=== PATIENT | female | born 1945 | race Caucasian/White ===

== ENCOUNTER 2020-04-14 06:37 | Observation (INO) ==
--- NOTE | 2020-03-02 21:57 | PAT Medication Instructions ---
Medication Instructions Date of Service March 02, 2020 Home Medications Medication Instructions Recorded Wheeled Walker #1 ea 02/23/20 3-in-1 Commode #1 ea 03/02/20 atenolol [Tenormin] 25 mg PO QAM atenolol [Tenormin] 100 mg PO QAM atorvastatin [Lipitor] 20 mg PO QPM fluticasone propionate [Flonase Allergy Relief] 2 spray INTRANASAL DAILY PRN furosemide [Lasix] 20 mg PO DAILY PRN lisinopril 20 mg PO QAM loratadine [Claritin] 10 mg PO QPM metformin 500 mg PO QAM warfarin 5 mg PO UD calcitriol 0.25 mcg PO QAM ASK your prescriber and surgeon warfarin 5 mg PO UD DO NOT take the morning of surgery furosemide [Lasix] 20 mg PO DAILY PRN (if needed) lisinopril 20 mg PO QAM metformin 500 mg PO QAM calcitriol 0.25 mcg PO QAM Take morning of surgery With a small sip of water, OTHERWISE NOTHING TO EAT OR DRINK AFTER MIDNIGHT: atenolol [Tenormin] 25 mg PO QAM atenolol [Tenormin] 100 mg PO QAM fluticasone propionate [Flonase Allergy Relief] 2 spray INTRANASAL DAILY PRN (if needed) Take evening before surgery atorvastatin [Lipitor] 20 mg PO QPM fluticasone propionate [Flonase Allergy Relief] 2 spray INTRANASAL DAILY PRN (if needed) furosemide [Lasix] 20 mg PO DAILY PRN (if needed) loratadine [Claritin] 10 mg PO QPM Other Notes If you have any questions please call us at [phone] or [phone] or [phone] or [phone]
--- NOTE | 2020-03-03 12:26 | Anesthesiology Consultation ---
Date of Service March 03, 2020 Assessment & Plan (1) Encounter for pre-operative examination: COVID Status: As of 03/03 assessment, patient denies travel to endemic area, known exposure/sick contacts, or symptoms of COVID19. Patient instructed to follow strict social distancing guidelines, wear a mask in public and avoid travel for 14 days prior to surgery. Preoperative COVID19 testing to be completed prior to surgery. Patient made aware to self-isolate as much as possible between COVID testing and surgery. PT/INR/PTT AM DOS Chart Review Chart Review: Acceptable Risk for Surgery and Patient seen in Pre Admission Testing Teaching & Discussion Instructed NPO after midnight before surgery, except medications with 15 cc of water. Medication instructions provided according to the PAT guidelines. History Surgery Operation Date: 04/14/20 10:40 Proposed Procedures p Right Total Hip Replacement - Casey De MD Height/Weight Height: 5 ft 6 in Weight: 105.6 kg Allergies Allergy/AdvReac Type Severity Reaction Status Date / Time doxycycline Allergy Mild RASH Verified 03/01/20 15:39 acetaminophen [From Tylenol] AdvReac Intermediate YEAST Verified 03/01/20 15:39 INFECTIONS Medications Home Medications Medication Instructions Recorded Confirmed Last Taken atenolol [Tenormin] 25 mg PO QAM 12/11/18 03/01/20 Unknown atenolol [Tenormin] 100 mg PO QAM 12/11/18 03/01/20 Unknown atorvastatin [Lipitor] 20 mg PO QPM 12/11/18 03/01/20 Unknown fluticasone propionate [Flonase 2 spray INTRANASAL DAILY PRN 12/11/18 03/01/20 Unknown Allergy Relief] furosemide [Lasix] 20 mg PO DAILY PRN 12/11/18 03/01/20 Unknown lisinopril 20 mg PO QAM 12/11/18 03/01/20 Unknown loratadine [Claritin] 10 mg PO QPM 12/11/18 03/01/20 Unknown metformin 500 mg PO QAM 12/11/18 03/01/20 Unknown warfarin 5 mg PO UD 12/11/18 03/01/20 Unknown blood sugar diagnostic #10 ea 12/03/19 12/03/19 Unknown Wheeled Walker #1 ea 02/23/20 Unknown calcitriol 0.25 mcg PO QAM 03/01/20 03/01/20 Unknown 3-in-1 Commode #1 ea 03/02/20 Unknown Past Medical History Medical History Arthritis Atrial fibrillation DX'D 7 YRS AGO-ON WARFARIN-F/U DR CEBALLOS Degenerative joint disease of right hip Diabetes mellitus, type 2 GERD (gastroesophageal reflux disease) On anticoagulant therapy Exercise / Class Metabolic Activity III < 4 Walking/Shop/Light housework (Denies CP or SOB with ambulation on flat surface. +SOB with 1 FOS.) Past Surgical History Surgical History History of cardioversion X 2 History of parathyroid surgery Hx of colonoscopy Hx of hysterectomy Past Anesthesia History No Hx of Anesthesia Complications and No Family Hx of Anesthesia Complications History of PONV No Hx of PONV and No Hx of Motion Sickness Social History Smoking Status: Former smoker Do You Dip or Chew Tobacco: No Smoking End Date: QUIT AGE 29 Hx Alcohol Use: Yes (very rare) Alcohol type: beer and wine alcohol intake frequency: holidays/special occasions only Hx Substance Use: No Review of Systems Pt denies any recent chest pain, shortness of breath above baseline, palpitations, cough, fever or URI. Physical Exam Vital Signs BP: 141/79 P: 77bpm SPO2: 95% RA T: 98.4 F R: 16 Constitutional + obese ENMT Mouth: no dental restorations, no chipped teeth and no loose teeth Thyromental Distance: < 3.5 Finger Breadths (3) Mallampati Class: II Neck normal visual inspection; neck extension not limited Respiratory normal respiratory effort Auscultation: lungs clear to auscultation bilaterally Cardiovascular Rate/Rhythm: regular rate; + abnormal rhythm (irreg irreg) Heart Sounds: no murmur Extremities: no edema Testing Laboratory Results 03/03/20 12:45 03/03/20 12:45 PT 17.8 Seconds (9.0-12.0) H 03/03/20 12:45 INR 1.7 (0.9-1.1) H 03/03/20 12:45 APTT 32.3 Seconds (21.0-31.0) H 03/03/20 12:45 Electrocardiogram Date: 10/22/19 Findings: + AFIB @ (91bpm) Nonspecific ST and TWA. No significant change from 10/29/18. Chest X-Ray Date: 03/03/20 Mild cardiomegaly. Echocardiogram Date: 11/05/18 EF: 60-65% There is atrial fibrillation during examination. Normal LV chamber size with mild concentric LVH. Normal LV systolic function without regional wall motion abnormality. Left atrial enlargement suggest diastolic LV dysfunction. RV cavity size is normal. RV systolic function is normal. No significant valvular pathology. Severe left atrial enlargement. Stress Test Date: 11/16/19 Resting EF: 70% Gated SPECT imaging reveals normal myocardial thickening and wall motion. Lexiscan nuclear cardiac stress test negative for ischemia.
--- NOTE | 2020-03-03 13:03 | XRay Report ---
XR chest Pre-admission PA/Lat HISTORY: Preop. COMPARISON: None. FINDINGS: No pneumothorax. No pleural effusions. The axilla is mildly enlarged. No new focal lung con solidations to suggest pneumonia. No evidence for pulmonary edema. IMPRESSION: Mild cardiomegaly. ACT 112: Negative or not required by law. Electronically signed by: Rishi Al M.D. 03/03/2020 1:01 PM
[2020-03-03 16:15] LABS: Basophils # (auto) 0.04 K/uL (0-0.2); Basophils % (auto) 0.6 %; Eosinophils # (auto) 0.17 K/uL (0-0.5); Eosinophils % (auto) 2.4 %; Hematocrit (blood only) 39.8 % (37-47); Hemoglobin 12.9 g/dL (12.0-16.0); Immature Granulocytes # (auto) 0.03 K/uL (0.00-0.02); Immature Granulocytes % (auto) 0.4 %; Lymphocytes # (auto) 2.03 K/uL (1.2-3.4); Lymphocytes % (auto) 28.8 %; Mean Corpuscular Hemoglobin 30.2 pg (25-34); Mean Corpuscular Hgb Conc 32.4 g/dL (32-36); Mean Corpuscular Volume 93.2 fL (80-100); Mean Platelet Volume 12.5 fL (7.4-10.4); Monocytes # (auto) 0.61 K/uL (0.11-0.59); Monocytes % (auto) 8.7 %; Neutrophils # (auto) 4.17 K/uL (1.4-6.5); Neutrophils % (auto) 59.1 %; Platelet Count 198 K/uL (130-400); RDW Coefficient of Variation 13.4 % (11.5-14.5); RDW Standard Deviation 45.2 fL (36.4-46.3); Red Blood Count 4.27 M/uL (4.2-5.4); White Blood Count 7.05 K/uL (4.8-10.8)
[2020-03-03 16:21] LABS: BUN Creatinine Ratio 16.4 (10-20); Calcium 9.7 mg/dl (8.5-10.1); Creatinine Clr Calc Pharmacy 64.6 ml/min; Est GFR (Non-African American) 61.3; Potassium 4.6 mmol/L (3.5-5.1)
[2020-03-03 16:30] LABS: INR 1.7 (0.9-1.1); Partial Thromboplastin Ratio 1.2; Partial Thromboplastin Time 32.3 Seconds (21.0-31.0); Prothrombin Time 17.8 Seconds (9.0-12.0)
--- NOTE | 2020-04-09 14:56 | History and Physical Report ---
DATE OF ADMISSION: 04/14/2020 CHIEF COMPLAINT: Persistent progressive right hip pain and discomfort. HISTORY OF PRESENT ILLNESS: The patient is a 75-year-old female who I have been following for some knee problems in the past who presents with a 1+ year history of increasing right hip pain and discomfort. It has gradually just gotten worse over the past year to the point where she has had to use a cane to get along. Her symptoms in the knees are pretty manageable, but hip is disabling. She did see Dr. Allen in pain clinic who did not think this was coming from her back. She describes mostly lateral hip pain and buttock pain and groin pain. The more she walks, the more it hurts. She limps more as the day goes on. She has nighttime pain. She would like to proceed with surgical treatment. PAST MEDICAL HISTORY: 1. Atrial fibrillation, on Coumadin; followed by Dr. Robertson. 2. Diabetes x8 years. 3. Gastroesophageal reflux disease. 4. Obesity with BMI of 38. PAST SURGICAL HISTORY: Include hysterectomy. ALLERGIES: DOXYCYCLINE. CURRENT MEDICINES: 1. Metformin 500 mg a day. 2. Atenolol. 3. Lisinopril. 4. Citrucel. 5. Coumadin 5 mg. 6. Atorvastatin 20 mg a day. SOCIAL HISTORY: A 75-year-old white female. She lives in [place]. Fairly active normally. Does not smoke. FAMILY HISTORY: Noncontributory. REVIEW OF SYSTEMS: Significant for history of atrial fibrillation in the past. Denies any current chest pain or shortness of breath. No history of DVT or PE. No known bleeding problems. She is on Coumadin. PHYSICAL EXAMINATION: GENERAL: Shows a pleasant elderly female. Looks to be in reasonably good health. HEENT: Benign. NECK: Supple, no lymphadenopathy. LUNGS: Clear to auscultation. HEART: Has a regular rate and rhythm. ABDOMEN: Soft, nontender, nondistended. EXTREMITIES: Grossly neurovascularly intact except as follows. Examination of the right hip reveals patient who walks with a slightly antalgic gait. Leg lengths clinically appear pretty equal. She does have significant pain and stiffness and recreation of her pain with hip internal rotation. She can internally rotate to about neutral. Negative straight leg raise. No knee effusion. X-RAYS: X-rays of the right hip were reviewed and compared to previous films, it shows advanced right hip DJD with complete loss of her superior joint space. This has progressed since her most recent films. She does have some slight cystic changes and sclerotic changes in the joint surface on both sides. ASSESSMENT: A 75-year-old white female with one year history of increasing right hip pain and discomfort consistent with progressive hip arthritis. She has failed conservative treatment and would like to have her right hip replaced. PLAN: We will take her to the operating room and do right total hip replacement. The risks and benefits of this procedure were explained to the patient including but not limited to DVT, PE, , infection, neurological injury, vascular injury, bleeding problem, pain, limited range of motion, stiffness, failure to relieve symptoms, incomplete relief of symptoms, need for further surgery in the future, fracture, leg length inequality, nerve palsy, dislocation, need for blood transfusion. The patient understands and desires to proceed. Informed consent was obtained. As far as discharge plans, she is hoping to be discharged to home. She is going to do the [facility] home health. We did talk about stopping her Coumadin 5 days preoperatively. We will check a stat PT and INR the morning of surgery.
[~2020-04-14 06:37] MED LIST: ACETAMINOPHEN 500 MG TAB PO SCH; BUPIVACAINE 0.5 % 5 MG/1 ML PF 10ML VIAL ONE; FAMOTIDINE 20 MG TAB PO SCH; GABAPENTIN 300 MG CAP PO SCH; LR 500ML BOLUS, THEN 15ML/HR IV SCH; LR 60ML/HR IV SCH; METOCLOPRAMIDE HCL 10 MG TABLET PO SCH; TRANEXAMIC ACID 1,000 MG **IV Pre-op IV SCH
--- NOTE | 2020-04-14 06:44 | History & Physical Bridge Note ---
Date of Service April 14, 2020 History & Physical Bridge Note I have examined the patient, reviewed the History & Physical and in the interval since the performance of the History & Physical I have noted the following changes of clinical significance: no changes noted
[2020-04-14] MEDS ORDERED: CEFAZOLIN 2000MG 2,000 MG/15 ML SYR IV ONE (07:36)
[2020-04-14] MEDS ORDERED: PROPOFOL IV EMULSION 10 MG/ML 20 ML VIAL IV ONE ×2 (07:53→09:49)
[2020-04-14] MEDS ORDERED: LIDOCAINE HCL 2% 2 ML VIAL/AMP(20MG/ML) INFIL ONE (07:53)
[2020-04-14] MEDS ORDERED: fentaNYL citrate 100 MCG/2 ML VIAL ONE (07:53)
[2020-04-14] MEDS ORDERED: MIDAZOLAM HCL 1 MG/ML 2ML VIAL ONE (07:53)
[2020-04-14 07:57] LABS: INR 1.2 (0.9-1.1); Partial Thromboplastin Ratio 0.9; Partial Thromboplastin Time 26.3 Seconds (21.0-31.0); Prothrombin Time 12.3 Seconds (9.0-12.0)
[2020-04-14] MEDS ORDERED: MoRPHine SULFATE PF 1 MG/ML 10 ML AMP/VIAL ONE (08:07)
[2020-04-14] MEDS ORDERED: BUPIVACAINE 0.5 % 5 MG/1 ML MPF 30ML VIAL ONE (08:39)
[2020-04-14] MEDS ORDERED: BACITRACIN INJ 50,000 UNIT VIAL ONE (08:39)
[2020-04-14] MEDS ORDERED: EPINEPHrine INJ 1 MG/ML AMP ONE (08:40)
[2020-04-14] MEDS ORDERED: METOCLOPRAMIDE HCL 10 MG in SODIUM CHLORIDE 0.9% 50 ML IV PRN (09:40)
[2020-04-14] MEDS ORDERED: LACTATED RINGER'S 500 ML IV PRN (09:40)
[2020-04-14] MEDS ORDERED: PROMETHAZINE HCL 12.5 MG in SODIUM CHLORIDE 0.9% 50 ML IV PRN (09:40)
[2020-04-14] MEDS ORDERED: HYDROmorphone INJ 0.5 MG/0.5 ML SYR IV PRN (09:40)
[2020-04-14] MEDS ORDERED: DiphenhydrAMINE HCL 50 MG/ML VIAL IV PRN (09:40)
[2020-04-14] MEDS ORDERED: MoRPHine SULFATE PF 1 MG/ML 10 ML AMP/VIAL INT SPINAL ONE (09:40)
[2020-04-14] MEDS ORDERED: ePHEDrine sulfate 50 MG/ML AMP IV PRN (09:40)
[2020-04-14] MEDS ORDERED: MoRPHine SULFATE 2 MG/ML CARP IV PRN (09:40)
[2020-04-14] MEDS ORDERED: NALOXONE HCL 0.4 MG/1 ML VIAL/CARP IV PRN (09:40)
[2020-04-14] MEDS ORDERED: NALOXONE HCL 0.08 MG in SYRINGE 1.8 ML IV PRN (09:40)
[2020-04-14] MEDS ORDERED: ONDANSETRON INJ 2 MG/ML 2 ML VIAL IV PRN (09:40)
[2020-04-14] MEDS ORDERED: MEPERIDINE HCL 25 MG/ML CARP/VIAL IV PRN (09:40)
[2020-04-14] MEDS ORDERED: NALOXONE HCL 1 MG in SODIUM CHLORIDE 0.9% 1000ML 1,000 ML IV PRN (09:40)
[2020-04-14] MEDS ORDERED: SODIUM CHLORIDE 0.9% 1000ML 1,000 ML IV SCH (09:45)
[2020-04-14] MEDS ORDERED: DC INTRASPINAL MORPHINE SCH (09:45)
[2020-04-14] MEDS ORDERED: PHENYLEPHRINE HCL 10 MG/ML VIAL ONE (09:45)
[2020-04-14] MEDS ORDERED: PHENYLEPHRINE 100MCG/ML 5ML SYR ONE (09:45)
[2020-04-14] MEDS ORDERED: NO NARCOTICS OR SEDATIVES SCH (09:45)
[2020-04-14] MEDS ORDERED: ePHEDrine sulfate 50 MG/ML SYR ONE (09:45)
--- NOTE | 2020-04-14 10:44 | Post Operative Brief Note ---
PG Immediate Post Op with CF Date of Surgery April 14, 2020 Pre & Post Diagnosis Operation Date: 04/14/20 08:50 Pre-Op Diagnosis: Right Hip Degenerative Joint Disease Post-Op Diagnosis: Right Hip Degenerative Joint Disease I identified the patient and participated in the time-out.: Yes Procedure Operation Date: 04/14/20 08:50 Actual Procedures p Right Total Hip Replacement, uncemented(Right) - Casey De MD Surgeon Casey De MD Instructor Decorating Minor, PAC Estimated Blood Loss 200 Findings Consistent with Post-Op Diagnosis Fluids 1500 cc Specimens Specimen Description: A: Right femoral head Drains Shelton Catheter (Inserted by Jb Clark RN without difficulty. ) Anesthesia Type Spinal MAC Complications none Disposition Accompanied Patient To Recovery: Yes Disposition: Recovery Room
--- NOTE | 2020-04-14 11:29 | XRay Report ---
XR hip 1V RT w pelvis CLINICAL HISTORY: IN PACU - A/P PELVIS and LATERAL HIP COMPARISON: None. DISCUSSION: Anatomic alignment post total right hip arthroplasty. Could contact between prosthetic an d underlying bone. Expected soft tissue postoperative change IMPRESSION: Anatomic alignment post total right hip arthroplasty. ACT 112: Negative or not required by law. The above report was generated using voice recognition software. It may contain grammatical, syntax or spelling errors. Electronically signed by: Sidney Anderson M.D. 04/14/2020 11:28 AM
--- NOTE | 2020-04-14 11:30 | Anesthesiology Progress Note ---
Date of Service April 14, 2020 Anesthesia Post Procedure Vital Signs Vital Signs: Temp Pulse Pulse Resp BP BP Pulse Ox 04/14/20 11:25 77 14 132/90 100 04/14/20 11:15 36.6 C 74 14 137/91 100 04/14/20 11:05 81 14 131/87 100 04/14/20 10:55 85 16 142/86 H 97 04/14/20 10:47 37.0 C 83 16 118/86 97 04/14/20 07:56 37.1 C 93 H 18 170/94 H 95 Pain Intensity Right Hip: Pain Intensity: 5 Transfer of Care Handoff Completed per policy Notes Mental Status: alert / awake / arousable and participated in evaluation Patient Amnestic to Procedure: Yes Nausea / Vomiting: adequately controlled Pain: adequately controlled Airway Patency, RR, SpO2: stable & adequate BP & HR: stable & adequate Hydration State: stable & adequate Neuraxial Anesthesia: was administered and sensory block is resolving Anesthetic Complications: no major complications apparent
[2020-04-14] MEDS ORDERED: MAGNESIUM HYDROXIDE SUSP 30 ML UDC PO PRN (12:05)
[2020-04-14] MEDS ORDERED: GLUCOSE 40% GEL 15 GM TUBE PO PRN (12:05)
[2020-04-14] MEDS ORDERED: ALUMINUM/MAGNESIUM SUSP 30 ML UDC PO PRN (12:05)
[2020-04-14] MEDS ORDERED: FUROSEMIDE 20 MG TAB PO PRN (12:05)
[2020-04-14] MEDS ORDERED: GLUCOSE 10 TABS/TUBE PO PRN (12:05)
[2020-04-14] MEDS ORDERED: GLUCAGON FOR INJ 1 MG VIAL SQ PRN (12:05)
[2020-04-14] MEDS ORDERED: bisacodyL 10 MG SUPP PR PRN (12:05)
[2020-04-14] MEDS ORDERED: FLUTICASONE PROPIONATE NA SPR 16 GM BTL NAE PRN (12:05)
[2020-04-14] MEDS ORDERED: WARFARIN SOD 10 MG TAB PO ONE (12:05)
[2020-04-14] MEDS ORDERED: DEXTROSE 50% 50 ML SYRINGE IV PRN (12:05)
[2020-04-14] MEDS ORDERED: CARBOHYDRATES FOR HYPOGLYCEMIA PO PRN (12:05)
[2020-04-14] MEDS ORDERED: PHARMACY GLYCEMIC MGMT CONSULT PRN (12:34)
--- NOTE | 2020-04-14 12:38 | Pharmacy Report ---
Glycemic Ortho Sign Off Note - Date of Service April 14, 2020 - Scope Glycemic Pharmacist consulted for glycemic control and to write orders per [facility] inpatient glycemic control protocol. - Objective Accuchecks BSG (last 24hrs):: 04/14/20 04/14/20 04/14/20 07:34 10:47 12:11 POC Glucose 136 H 116 H 111 H - Assessment * Pt is maintained on oral antidiabeticagent[s]as anoutpatient with excellent control per recent A1c * Oral agents are not recommended for inpatient use d/t drug interactions, changing PO intake, and difficulty titrating for acute hyper/hypoglycemia. * Recommended regimen for inpatient use is SQ insulin * Low stress weight based insulin dosing appropriate since patient has minimal risk factors for insulin resistance (i.e. no steroids). * Appropriate to DC insulin and resume outpatient antidiabetic regimen at discharge * Goal is to maintain BSGs <200 mg/dl (ideally <150 mg/dl) to prevent post op complications - Plan For Inpatient Glycemic Control * Basal insulin * Not needed based on A1c, pre-op BSGs, and minimal risk factors for insulin resistance * Bolus insulin * Utilize low stress weight based NovoLog parameters per scale ACHS * Pharmacy has entered glycemic orders and is signing off of the glycemic consult. We will no longer be making adjustments to inpatient regimen. Please feel free to re-consult if needed. Thank you.
[2020-04-14] MEDS: SODIUM CHLORIDE 0.9% 1000ML 1,000 ML IV SCH ×2 (13:44→23:30)
[2020-04-14] MEDS: KETOROLAC TROMETHAMINE 15 MG/ML VIAL IV SCH ×3 (13:46→23:31)
[2020-04-14] MEDS: ACETAMINOPHEN 500 MG TAB PO SCH ×2 (14:46→21:50)
[2020-04-14] MEDS: ASCORBIC ACID 500 MG TAB PO SCH (16:32)
[2020-04-14] MEDS: FERROUS GLUCONATE 324 MG TAB PO SCH (16:32)
[2020-04-14] MEDS: CEFAZOLIN 2000MG 2,000 MG/15 ML SYR IV SCH (17:16)
[2020-04-14] MEDS: INSULIN ASPART 100 UNITS/ML 3 ML PEN SC SCH ×2 (17:57→21:38)
--- NOTE | 2020-04-14 19:09 | Operative Report ---
Post Operative Report Pre & Post Diagnosis Operation Date: 04/14/20 08:50 Pre-Op Diagnosis: Right Hip Degenerative Joint Disease Post-Op Diagnosis: Right Hip Degenerative Joint Disease I identified the patient and participated in the time-out.: Yes Procedure Operation Date: 04/14/20 08:50 Actual Procedures p Right Total Hip Replacement, uncemented(Right) - Casey De MD Surgeon Casey De MD Electrical Construction Project Manager Minor, PAC Estimated Blood Loss 200 Findings Consistent with Post-Op Diagnosis Operative findings revealed advanced right hip DJD. As she had grade 4 [id number] disease of the femoral head and acetabulum. Small anterior acetabular osteophyte. Moderate sized joint effusion. Moderate synovitis. Fluids 1500 cc. Specimens Right femoral head sent for pathology. Drains None. Anesthesia Type Spinal MAC Complications none Disposition Accompanied Patient To Recovery: Yes Disposition: Recovery Room Indications Patient is a 75-year-old fairly active female who is had about a 1 year history of gradually increasing hip pain and discomfort that is gotten significantly worse. She got to the point where she had use a cane to get around. She has had difficulty maintaining any degree of activity or independent lifestyle. X- rays show progressive hip arthritis. She elected proceed with surgical treatment. Description of Procedure Operative implants consist of: 1. Biomet G7 size 52 mm acetabular shell. 2. 6.5 cancellus acetabular screws 1 of 35 mm length and 125 mm length. 3. [place] hole eliminator. 4. 52 mm outer diameter, 36 mm inner diameter highly cross-linked polyethylene liner. 5. [place] Corail size 11 KLA femoral stem. 6. +1.5/36 mm ceramic articular ball. Patient was taken to the operating room identified and placed on the operating table supine position protectors were properly padded. IV antibiotics were provided by the anesthesia team. A spinal anesthetic been implemented holding area. Shelton catheter was placed in sterile fashion. The patient then placed in the left lateral cubitus position. An axillary roll was placed. A Stulberg hip positioner was used for positioning. The right hip and leg were then prepped and draped in usual sterile fashion. A posterior LAT approach of the right hip was then performed through a curvilinear incision centered over the greater trochanter. Sharp dissection got through subcutaneous this down over the IT band gluteal fascia. The IT band gluteal fascia were incised longitudinally in line with skin incision. The underlying greater truck bursa was excised. The piriformis and external rotators were tagged and taken off the posterior aspect hip joint capsule. Great care was taken throughout the procedure protect the sciatic nerve at all times. Posterior capsulotomy was then performed leaving a large flap for later repair. Hip was internally rotated and dislocated. Femoral neck osteotomy cut was made with Final Cut 12 mm above the lesser trochanter. Femoral head was removed and sent for pathology. The femur was retracted anteriorly. Attention drawn the acetabulum. The acetabular labrum was excised per the pulmonary fat was excised. Sequential reaming the acetabular was then performed again with size 43 and progressing up to 51. I did reamed with a 52. A 52 mm Biomet G7 acetabular shell cup was then placed in about 40 degrees lateral opening and 20 degrees of anteversion. It was fixed with two 6.5 cancellus acetabular screws. Trial liner was placed. Some small anterior osteophytes were removed. Attention drawn the femur. The proximal femur was entered with a cookie-cutter followed by canal finder. I broached beginning with size 8 and progressing up to 11. Got excellent fit 11. Calcar reamer was used smooth and off the calcar. Then trialed the hip. The +5 articular ball the hip was fully stable but just seemed a bit tight. I used a +1.5 the head. It seemed to re-create leg lengths equal and soft tissue tension appropriate. The hip was fully stable. We elect to place these implants. All trial implants were removed. An apex hole eliminator was placed. Highly cross-linked polyethylene liner was placed. A size 11 KLA femoral stem was impacted in position. A +1.5/36 mm ceramic articular ball was placed. It was located once again found to be stable. Attention drawn toward closing. The wounds irrigated copious pulsatile lavage solution. I did inject locally with 60 cc of half percent Marcaine with epinephrine. The posterior capsule and external rotators were then repaired through drill holes in the posterior trochanter with #2 Tycron suture. The IT band gluteal fascia then closed with #1 PDS suture in running fashion the subcutaneous tissue then closed with 2 layers the deep layer #1 Vicryl suture and subcutaneous tissue with 2 Dexon suture in a buried interrupted fashion for skin was closed skin [place]. Leg was then cleaned dried a sterile dressed composed Xeroform, 4 x 4's, sterile ABD pad and foam tape was applied. The patient then transferred to the recovery in stable condition. The patient tolerated procedure well no complications. Obie Sanchez, my physician assistant designer, was present for the entire procedure. His presence was essential to proper positioning of the patient, prepping and draping, surgical exposure, performing the technical details of the operation, retraction, placement of the implants, closing of the wound, and placing a sterile bandage. I attest to the content of the Intraoperative Record and any orders documented therein. Any exceptions are noted below.
[2020-04-14] MEDS: LORATADINE 10 MG TAB PO SCH (21:49)
[2020-04-14] MEDS: ATORVASTATIN 20 MG TAB PO SCH (21:50)
[2020-04-14] MEDS: DOCUSATE SODIUM 100 MG CAP PO SCH (21:50)
[2020-04-14] MEDS: SENNA 8.6 MG TAB PO SCH (21:50)
[2020-04-15] MEDS: CEFAZOLIN 2000MG 2,000 MG/15 ML SYR IV SCH (00:53)
[2020-04-15] MEDS ORDERED: NALOXONE HCL 0.4 MG/1 ML VIAL/CARP IV PRN (03:40)
[2020-04-15] MEDS ORDERED: METOCLOPRAMIDE HCL INJ 5 MG/ML 2 ML VIAL IV PRN (03:40)
[2020-04-15] MEDS ORDERED: TRAMADOL HCL 50 MG TABLET PO PRN (03:40)
[2020-04-15] MEDS ORDERED: HYDROmorphone INJ 0.5 MG/0.5 ML SYR IV PRN (03:40)
[2020-04-15] MEDS ORDERED: ONDANSETRON INJ 2 MG/ML 2 ML VIAL IV PRN (03:40)
[2020-04-15 06:12] LABS: Basophils # (auto) 0.03 K/uL (0-0.2); Basophils % (auto) 0.2 %; Eosinophils # (auto) 0.06 K/uL (0-0.5); Eosinophils % (auto) 0.5 %; Hematocrit (blood only) 36.9 % (37-47); Hemoglobin 11.9 g/dL (12.0-16.0); Immature Granulocytes # (auto) 0.03 K/uL (0.00-0.02); Immature Granulocytes % (auto) 0.2 %; Lymphocytes # (auto) 1.95 K/uL (1.2-3.4); Lymphocytes % (auto) 15.7 %; Mean Corpuscular Hemoglobin 30.9 pg (25-34); Mean Corpuscular Hgb Conc 32.2 g/dL (32-36); Mean Corpuscular Volume 95.8 fL (80-100); Mean Platelet Volume 11.6 fL (7.4-10.4); Monocytes # (auto) 1.24 K/uL (0.11-0.59); Neutrophils # (auto) 9.15 K/uL (1.4-6.5); Neutrophils % (auto) 73.4 %; Platelet Count 183 K/uL (130-400); RDW Coefficient of Variation 13.7 % (11.5-14.5); RDW Standard Deviation 48.4 fL (36.4-46.3); Red Blood Count 3.85 M/uL (4.2-5.4); White Blood Count 12.46 K/uL (4.8-10.8)
[2020-04-15] MEDS: ACETAMINOPHEN 500 MG TAB PO SCH ×3 (06:16→21:29)
[2020-04-15] MEDS: KETOROLAC TROMETHAMINE 15 MG/ML VIAL IV SCH ×4 (06:16→23:05)
[2020-04-15 06:20] LABS: INR 1.2 (0.9-1.1); Prothrombin Time 12.8 Seconds (9.0-12.0)
[2020-04-15 06:48] LABS: BUN Creatinine Ratio 21.1 (10-20); Calcium 8.5 mg/dl (8.5-10.1); Creatinine Clr Calc Pharmacy 67.9 ml/min; Est GFR (Non-African American) 64.7; Potassium 4.1 mmol/L (3.5-5.1)
[2020-04-15] MEDS ORDERED: WARFARIN SOD 2 MG TAB PO ONE (08:30)
[2020-04-15] MEDS ORDERED: WARFARIN SOD 5 MG TAB PO ONE (08:30)
--- NOTE | 2020-04-15 08:44 | Progress Notes ---
DATE: 04/15/2020 SUBJECTIVE: A 75-year-old white female postop day 1 from a right hip replacement. She is doing well. Really not having much pain. Had a good night. No chest pain or shortness of breath. Not feeling dizzy or lightheaded. OBJECTIVE: VITAL SIGNS: Temperature 36.6. Vital signs stable. GENERAL: Shows a pleasant elderly female. She is lying in bed and looks comfortable. LUNGS: Clear to auscultation. HEART: Has a regular rate and rhythm. ABDOMEN: Soft, nontender, nondistended. EXTREMITIES: Grossly neurovascularly intact except as follows: Examination of the right hip and leg reveals the leg to be well aligned. Leg lengths are equal. Dressing is clean, dry and intact. Calf is soft and supple. She is neurologically intact. LABORATORY DATA: Hemoglobin 11.9. Hematocrit 36.9. White cell count 12.46. Electrolytes are stable. ASSESSMENT: A 75-year-old white female with a history of atrial fibrillation in the past. Postoperative day 1 from a right hip replacement, doing pretty well. Pain is controlled. Hip is located. She is neurologically intact. PLAN: 1. DVT prophylaxis including thigh-high TEDs, SCDs, and we will put her back on her Coumadin and she was dosed last evening. 2. PT/OT. Weight bear as tolerated. Right total hip protocol. 3. Pain control, doing well with current pain regimen. 4. Disposition: She is hoping to be discharged home with some home health and family's assistance once medically stable and adequately rehabed.
[2020-04-15] MEDS: DOCUSATE SODIUM 100 MG CAP PO SCH ×2 (09:16→21:30)
[2020-04-15] MEDS: ASCORBIC ACID 500 MG TAB PO SCH ×2 (09:18→16:34)
[2020-04-15] MEDS: MULTIVITAMIN TAB PO SCH (09:18)
[2020-04-15] MEDS: FERROUS GLUCONATE 324 MG TAB PO SCH ×2 (09:19→16:34)
[2020-04-15] MEDS: CALCITRIOL 0.25 MCG CAPSULE PO SCH (09:19)
[2020-04-15] MEDS: lisinopriL 20 MG TAB PO SCH (09:25)
[2020-04-15] MEDS: ATENOLOL 50 MG TABLET PO SCH (09:25)
[2020-04-15] MEDS: ATENOLOL 25 MG TABLET PO SCH (09:25)
[2020-04-15] MEDS: INSULIN ASPART 100 UNITS/ML 3 ML PEN SC SCH ×4 (09:45→21:54)
[2020-04-15] MEDS: METFORMIN HCL 500 MG TAB PO SCH (12:19)
[2020-04-15] MEDS: LORATADINE 10 MG TAB PO SCH (21:29)
[2020-04-15] MEDS: SENNA 8.6 MG TAB PO SCH (21:31)
[2020-04-15] MEDS: ATORVASTATIN 20 MG TAB PO SCH (21:31)
[2020-04-16] MEDS: KETOROLAC TROMETHAMINE 15 MG/ML VIAL IV SCH (04:38)
[2020-04-16] MEDS: ACETAMINOPHEN 500 MG TAB PO SCH ×2 (04:38→13:22)
[2020-04-16 06:25] LABS: INR 1.9 (0.9-1.1); Prothrombin Time 19.3 Seconds (9.0-12.0)
[2020-04-16] MEDS ORDERED: WARFARIN SOD 4 MG TAB PO ONE (07:55)
[2020-04-16] MEDS: METFORMIN HCL 500 MG TAB PO SCH (08:16)
[2020-04-16] MEDS: FERROUS GLUCONATE 324 MG TAB PO SCH (08:16)
[2020-04-16] MEDS: CALCITRIOL 0.25 MCG CAPSULE PO SCH (08:17)
[2020-04-16] MEDS: DOCUSATE SODIUM 100 MG CAP PO SCH (08:17)
[2020-04-16] MEDS: ASCORBIC ACID 500 MG TAB PO SCH (08:17)
[2020-04-16] MEDS: MULTIVITAMIN TAB PO SCH (08:17)
[2020-04-16] MEDS: ATENOLOL 25 MG TABLET PO SCH (08:18)
[2020-04-16] MEDS: ATENOLOL 50 MG TABLET PO SCH (08:18)
[2020-04-16] MEDS: lisinopriL 20 MG TAB PO SCH (08:19)
--- NOTE | 2020-04-16 09:11 | Progress Notes ---
DATE: 04/16/2020 SUBJECTIVE: A 75-year-old white female now postop day 2 from right hip replacement. She is doing pretty well. Not having much pain. No chest pain or shortness of breath. Not feeling dizzy or lightheaded. OBJECTIVE: VITAL SIGNS: Temperature 36.7. Vital signs stable. GENERAL: Physical examination shows a pleasant, elderly female. She is sitting up in her bedside chair, looks completely comfortable. EXTREMITIES: Examination of the right hip reveals the dressing to be clean, dry and intact. Thigh is soft and supple. Leg lengths are equal. Hip is located. She is neurologically intact. LABORATORY DATA: INR is 1.9. ASSESSMENT: A 75-year-old white female postop day 2 from a right hip replacement, doing well. Pain is controlled. Hip is located. Her Coumadin is almost therapeutic. PLAN: 1. DVT prophylaxis include thigh-high TEDs, SCDs and back on her Coumadin and almost therapeutic. 2. PT/OT. She will weightbear as tolerated. Right total hip protocol. 3. Pain control, doing well with current pain regimen. 4. Disposition: She is hoping to be discharged to home with some home health. Her sister is going to come and stay with her for the first week or so. She feels comfortable going home. We will see how therapy goes today.
[2020-04-16] MEDS: INSULIN ASPART 100 UNITS/ML 3 ML PEN SC SCH ×2 (09:30→12:18)
--- NOTE | 2020-04-24 15:22 | Discharge Summary ---
Date of Service April 24, 2020 Admission HPI Per Admitting Provider Documented in the H & P Admission Exam (Per Admitting) Constitutional Documented in the H & P Discharge Data Consultations 04/15/20 08:00 Consult Case Management - Discharge Planning Routine Procedures Performed Operation Date: 04/14/20 08:50 Actual Procedures p Right Total Hip Replacement, uncemented(Right) - Casey De MD Hospital Course (1) Status post total hip replacement, right: This patient is a 75 year old female admitted on 04/14/20 and underwent total hip replacement. She tolerated the procedure well and there were no complications. Transferred to the PACU post op and later to the orthopedic floor for further care. She was given ancef for antibiotic prophylaxis. She was also given TEETEE stockings, SCDs, and coumadin for DVT prophylaxis. Hemoglobin, hematocrit, and vital signs were monitored during her hospital stay and remained stable. Did not require any blood transfusions. There were no complications during her hospital stay. By post op day #2 the patient was tolerating a diabetic diet, pain was reasonably controlled with oral pain medicine, and she was participating in physical therapy. On post op day #2 the patient was discharged home and set up with home health care. Shevwas given printed discharge instructions including prescriptions for extra strength tylenol and tramadol. Continue physical therapy, weight bearing as tolerated. Continue TEETEE stockings. Follow up approximately 2 weeks post op or sooner if there are problems or concerns. Coding Level of Care Code None Diagnoses Status post total hip replacement, right Z96.641
== END 2020-04-16 13:40 | disposition home health service (06) ==
LOC: 3E 06:37 → PAT 06:37 → ASU 06:37

== ENCOUNTER 2022-02-26 12:53 | Inpatient (IN) ==
[2022-02-26] MEDS ORDERED: ONDANSETRON INJ 2 MG/ML 2 ML VIAL IV STA (13:34)
[2022-02-26] MEDS ORDERED: MoRPHine SULFATE 4 MG/ML 1 ML CARP\\VIAL IV STA (13:34)
--- NOTE | 2022-02-26 13:40 | Emergency Department Note ---
History of Present Illness General Chief complaint: Vomiting Stated complaint: FEELS ILL Time Seen by Provider: 02/26/22 13:13 Source: patient History of Present Illness Provider complaint: Right-sided abdominal pain Onset (ago): hour(s) Location: abdomen and right Radiation: back Pain Consistency: + constant Maximum Pain Intensity: 8 Quality: + other (Gas-like pain) Relieved By: + none Exacerbated By: + none Associated symptoms: + nausea/vomiting; no chest pain, no cough, no fever/chills or no shortness of breath This is a 77-year-old female who presents with bilateral flank pain which is worse on the right side. She states that it started approximately 10:00 today. She noticed pain mostly on the right abdomen rating to her back and flank. She describes it as a gas-like pain. It was associated with vomiting. No modifying factors. It went away after about an hour. She does feel a slight pain currently. She denies any fever, cough or cold symptoms, chest pain, shortness of breath or urinary symptoms or hematuria. She does state that she had diarrhea over the weekend but that has gone away. She denies any hematochezia or melanotic stools. She does still have her gallbladder. Home Medications Medication Instructions Recorded Confirmed Type atorvastatin 20 mg tablet (Lipitor) 20 mg PO QPM 12/11/18 02/26/22 History fluticasone propionate 50 2 spray INTRANASAL DAILY PRN 12/11/18 02/26/22 History mcg/actuation nasal spray,suspension (Flonase Allergy Relief) loratadine 10 mg tablet (Claritin) 10 mg PO QPM 12/11/18 02/26/22 History metformin 500 mg tablet,extended 500 mg PO QAM 12/11/18 02/26/22 History release 24 hr warfarin 5 mg tablet See Rx Instructions .ROUTE .COMPLEX 12/11/18 02/26/22 History blood sugar diagnostic (OneTouch #10 ea 12/03/19 05/23/21 History Ultra Blue Test Strip) Wheeled Walker #1 ea 02/23/20 05/04/21 Rx 3-in-1 Commode #1 ea 03/02/20 05/04/21 Rx tramadol 50 mg tablet 50 - 100 mg PO Q6H PRN #30 tab 04/16/20 02/26/22 Rx calcitriol 0.25 mcg capsule 0.25 mcg PO QAM #90 cap 12/03/21 02/26/22 Rx atenolol 50 mg tablet 125 mg PO QAM 02/26/22 02/26/22 History losartan 50 mg tablet 50 mg PO QAM 02/26/22 02/26/22 History Allergies Allergy/AdvReac Type Severity Reaction Status Date / Time doxycycline Allergy Intermediate RASH Verified 02/26/22 15:49 acetaminophen [From Tylenol] AdvReac Intermediate YEAST Verified 02/26/22 15:49 INFECTIONS Past Med/Surg History Medical History Arthritis Atrial fibrillation DX'D 7 YRS AGO-ON [place]-F/U DR CEBALLOS Diabetes mellitus, type 2 GERD (gastroesophageal reflux disease) Hyperparathyroidism Hypertension Left knee DJD On anticoagulant therapy Osteoporosis Vitamin D deficiency Surgical History History of cardioversion X 2 History of parathyroid surgery Hx of colonoscopy Hx of hysterectomy Status post total hip replacement, right Family History Sister Breast cancer Unknown Cardiac disorder Brother Family history of diabetes mellitus Social History Smoking Status: Former smoker Second Hand Exposure: Yes (SPOUSE SMOKED); Hx Alcohol Use: No Hx Substance Use: No Preferred Language: Swedish Communication Ability: Effective Surveying Teacher Required: No Beliefs That Will Affect Care: None marital status: Current Living Situation: Alone Feels Safe at Home: Yes Assistive Devices: Glasses and Walker Review of Systems See HPI for pertinent positives & negatives. and A total of 10 systems reviewed and were otherwise negative Physical Exam Vital Signs Vital Signs - 24 hr 02/26/22 13:01 02/26/22 14:01 02/26/22 14:38 Temperature 37.1 C Temperature Source Temporal Artery Scan Pulse Rate 89 Pulse Rate [Apical] 91 H Respiratory Rate 16 18 Respiratory Effort / Characteristics Non-Labored Respiratory Depth Normal Pulse Oximetry 97 96 99 Oxygen Delivery Method Room Air Room Air Sepsis Recent Fever Within 48 Hours No Sepsis New/Unexplained Change in Mental Status N/A Sepsis Action Taken by Nursing No Action Required 02/26/22 16:23 02/26/22 18:05 Temperature Temperature Source Pulse Rate Pulse Rate [Apical] 82 86 Respiratory Rate 16 16 Respiratory Effort / Characteristics Respiratory Depth Pulse Oximetry 95 95 Oxygen Delivery Method Room Air Sepsis Recent Fever Within 48 Hours Sepsis New/Unexplained Change in Mental Status Sepsis Action Taken by Nursing Constitutional: Vital signs reviewed. Eyes: Pupils are equal round reactive to light. Conjunctiva are noninjected. ENT: Pharynx is clear without erythema or exudate. Mucous membranes are moist. Neck supple without meningeal signs. Respiratory: Clear to auscultation bilaterally. Breath sounds are equal bilaterally. Cardiovascular: Irregularly irregular rhythm. Normal rate. GI: Soft, nondistended with tenderness in the right upper quadrant. Negative Roe sign. Bowel sounds are present. Musculoskeletal: No peripheral edema. No lower extremity tenderness. Integumentary: No cyanosis. or jaundice. Neurological: The patient is awake and alert. No focal deficits. Psychiatric: Normal affect. Not anxious appearing. Course Administered Medications Discontinued Medications Morphine Sulfate (Morphine Sulfate 4 Mg/Ml 1 Ml Carp\Vial) 2 mg IV NOW STA Stop: 02/26/22 13:35 Last Admin: 02/26/22 14:36 Dose: 2 mg Documented by: [id number] Ondansetron HCl (Ondansetron Inj 2 Mg/Ml 2 Ml Vial) 4 mg IV NOW STA Stop: 02/26/22 13:35 Last Admin: 02/26/22 14:36 Dose: 4 mg Documented by: [id number] Medical Decision Making Differential Diagnosis Cholelithiasis, biliary colic, cholecystitis, pancreatitis, obstructive uropathy, ureterolithiasis, peptic ulcer disease, colitis Medical Records Attestation: I reviewed the patient's medical records. I did perform a limited focused review of portions of the patient's old chart on the electronic medical record. The patient has had no recent pertinent visits to this hospital. Home Medications Current Medication List: was personally reviewed by me Laboratory Data Attestation: I reviewed the patient's lab results. Result diagrams: 02/26/22 15:09 02/26/22 Unknown Lab Results 02/26/22 02/26/22 02/26/22 Range/Units 14:10 15:09 Unknown WBC 11.20 H (4.8-10.8) K/uL RBC 3.97 L (4.2-5.4) M/uL Hgb 11.9 L (12.0-16.0) g/dL Hct 36.5 L (37-47) % MCV 91.9 (80-100) fL MCH 30.0 (25-34) pg MCHC 32.6 (32-36) g/dL RDW Std Deviation 46.3 (36.4-46.3) fL RDW Coeff of Skye 13.7 (11.5-14.5) % Plt Count 151 (130-400) K/uL MPV 11.9 H (7.4-10.4) fL Immature Gran % (Auto) 0.2 % Neut % (Auto) 90.2 % Lymph % (Auto) 3.5 % Mason % (Auto) 5.9 % Eos % (Auto) 0.1 % Baso % (Auto) 0.1 % Neut # (Auto) 10.11 H (1.4-6.5) K/uL Lymph # (Auto) 0.39 L (1.2-3.4) K/uL Mason # (Auto) 0.66 H (0.11-0.59) K/uL Eos # (Auto) 0.01 (0-0.5) K/uL Baso # (Auto) 0.01 (0-0.2) K/uL Immature Gran # (Auto) 0.02 (0.00-0.02) K/uL Sodium 142 (136-145) mmol/L Potassium 3.0 L (3.5-5.1) mmol/L Chloride 101 (98-107) mmol/L Carbon Dioxide 33 H (21-32) mmol/L Anion Gap 8 (3-11) BUN 27 H (6-23) mg/dl Creatinine 0.97 (0.6-1.2) mg/dl Est Cr Clr Drug Dosing 60.1 ml/min Est GFR ( Amer) 64.8 ml/min Est GFR (Non-Af Amer) 55.9 ml/min BUN/Creatinine Ratio 27.8 H (10-20) Glucose 111 H (70-99(Fasting)) mg/dl Calcium 9.5 (8.5-10.1) mg/dl Total Bilirubin 3.2 H (0.2-1.0) mg/dl AST 632 H (13-39) U/L ALT 388 H (7-52) U/L Alkaline Phosphatase 168 H (34-104) U/L Total Protein 6.3 (6.0-8.3) gm/dl Albumin 3.7 (3.4-5.0) gm/dl Globulin 2.6 (2.5-4.0) gm/dl Albumin/Globulin Ratio 1.4 (0.9-2) Lipase 35 (11-82) U/L SARS-CoV-2, RNA, NAAT NEGATIVE (NEGATIVE) Imaging Data Radiologist's Impression: Gallbladder Ultrasound 02/26/22 13:34 US gallbladder CLINICAL HISTORY: ruq pain eval for cholecystitis TECHNIQUE: Multiple real-time sonographic images of the right upper quadrant were obtained. Comparison: None available at the time of this dictation. FINDINGS: The liver is diffusely echogenic in appearance with poor ultrasound penetration, with normal contour, which is consistent with fatty infiltration. A tiny hepatic cyst is seen. No intrahepatic ductal dilatation is seen. Linear hyperechoic foci with posterior shadowing are identified layering dependently within the gallbladder, which are consistent with gallstones. The gallbladder wall is not thickened. There is no pericholecystic fluid present. A sonographic Roe's sign was not elicited by the hydraulic blocker. The common duct measures 0.7 cm in diameter at the level of the hepatic artery. The visualized portions of the pancreas appear normal. The right kidney shows normal echogenicity, cortical thickness and renal contour. The right kidney shows no evidence of hydronephrosis or mass. No ascites or free fluid is seen in Solares's pouch. IMPRESSION: Hepatic steatosis. Cholelithiasis without evidence of cholecystitis. ACT 112: Negative or not required by law. Electronically signed by: Jerome Petersen M.D. 02/26/2022 3:39 PM MDM Narrative I did evaluate the patient as noted above. The patient is presenting with right sided abdominal pain starting this morning. She had vomiting with it as well. IV access was established. I did treat the patient with IV morphine and Zofran. The patient was made NPO. I did order a urine analysis. I did order and review the patient's blood work as noted in the electronic medical record. CBC demonstrates a white count of 11. Her hemoglobin is 12. Platelet count is within normal limits. CMP is remarkable for a potassium of 3 a total bilirubin of 3.2, AST of 632 and ALT of 388. Lipase is within normal limits. I did order an ultrasound of the right upper quadrant. I did review the images myself as well as the radiology report as described above. She has cholelithiasis without cholecystitis. CBD is 0.7 cm in diameter. I did reassess the patient. She is feeling much better at this time. I did discuss the test results with her and her family. I did recommend hospitalization for further care and evaluation with likely GI consultation as well as surgical consultation. I did discuss the case with the hospitalist and transplant case manager. Impression & Plan Cholelithiasis, Hypokalemia, Anemia Discharge Plan Visit Data Chief Complaint: Vomiting Stated Complaint: FEELS ILL ED Provider: Robin Hernandez Discharge Problem: Cholelithiasis, Hypokalemia, Anemia Patient Disposition: Being Evaluated by Hospitalist Forms Stand Alone Forms: My [facility] Prescriptions Prescriptions: No Action (DME) Wheeled Walker Misc See Rx Instructions .ROUTE .MEDSUPPLY Qty: 1 RF: 0 (DME) 3-in-1 Commode Misc See Rx Instructions .ROUTE .MEDSUPPLY Qty: 1 RF: 0 calcitriol 0.25 mcg capsule 0.25 mcg PO QAM Qty: 90 RF: 3 (DME) blood sugar diagnostic [OneTouch Ultra Blue Test Strip] Strip See Rx Instructions .ROUTE .MEDSUPPLY Qty: 10 RF: 0 tramadol 50 mg Tablet 50 - 100 mg PO Q6H PRN (Reason: pain) Qty: 30 RF: 0 atorvastatin [Lipitor] 20 mg tablet 20 mg PO QPM RF: 0 warfarin 5 mg Tablet See Rx Instructions .ROUTE .COMPLEX RF: 0 fluticasone propionate [Flonase Allergy Relief] 50 mcg/actuation spray,suspension 2 spray intranasal DAILY PRN (Reason: Nasal Congestion) RF: 0 loratadine [Claritin] 10 mg tablet 10 mg PO QPM RF: 0 metformin 500 mg Tablet Extended Release 24 Hr 500 mg PO QAM RF: 0 losartan 50 mg tablet 50 mg PO QAM RF: 0 atenolol 50 mg tablet 125 mg PO QAM RF: 0 Referrals Referrals: Megan Mak MD [Primary Care Provider] -
[2022-02-26 15:24] LABS: Basophils # (auto) 0.01 K/uL (0-0.2); Basophils % (auto) 0.1 %; Eosinophils # (auto) 0.01 K/uL (0-0.5); Eosinophils % (auto) 0.1 %; Hematocrit (blood only) 36.5 % (37-47); Hemoglobin 11.9 g/dL (12.0-16.0); Immature Granulocytes # (auto) 0.02 K/uL (0.00-0.02); Immature Granulocytes % (auto) 0.2 %; Lymphocytes # (auto) 0.39 K/uL (1.2-3.4); Lymphocytes % (auto) 3.5 %; Mean Corpuscular Hgb Conc 32.6 g/dL (32-36); Mean Corpuscular Volume 91.9 fL (80-100); Mean Platelet Volume 11.9 fL (7.4-10.4); Monocytes # (auto) 0.66 K/uL (0.11-0.59); Monocytes % (auto) 5.9 %; Neutrophils # (auto) 10.11 K/uL (1.4-6.5); Neutrophils % (auto) 90.2 %; Platelet Count 151 K/uL (130-400); RDW Coefficient of Variation 13.7 % (11.5-14.5); RDW Standard Deviation 46.3 fL (36.4-46.3); Red Blood Count 3.97 M/uL (4.2-5.4)
--- NOTE | 2022-02-26 15:41 | Ultrasound Report ---
US gallbladder CLINICAL HISTORY: ruq pain eval for cholecystitis TECHNIQUE: Multiple real-time sonographic images of the right upper quadrant were obtained. Comparison: None available at the time of this dictation. FINDINGS: The liver is diffusely echogenic in appearance with poor ultrasound penetration, with normal contour, which is consistent with fatty infiltration. A tiny hepatic cyst is seen. No intrahepatic ductal d ilatation is seen. Linear hyperechoic foci with posterior shadowing are identified layering dependen tly within the gallbladder, which are consistent with gallstones. The gallbladder wall is not thicken ed. There is no pericholecystic fluid present. A sonographic Roe's sign was not elicited by the s onographer. The common duct measures 0.7 cm in diameter at the level of the hepatic artery. The vi sualized portions of the pancreas appear normal. The right kidney shows normal echogenicity, cortical thickness and renal contour. The right kidney sh ows no evidence of hydronephrosis or mass. No ascites or free fluid is seen in Solares's pouch. IMPRESSION: Hepatic steatosis. Cholelithiasis without evidence of cholecystitis. ACT 112: Negative or not required by law. Electronically signed by: Jerome Petersen M.D. 02/26/2022 3:39 PM
[2022-02-26 17:51] LABS: Albumin Globulin Ratio 1.4 (0.9-2); Albumin Level 3.7 gm/dl (3.4-5.0); BUN Creatinine Ratio 27.8 (10-20); Bilirubin,Total 3.2 mg/dl (0.2-1.0); Calcium 9.5 mg/dl (8.5-10.1); Creatinine Clr Calc Pharmacy 60.1 ml/min; Est GFR (African American) 64.8 ml/min; Est GFR (Non-African American) 55.9 ml/min; Globulin 2.6 gm/dl (2.5-4.0); Total Protein 6.3 gm/dl (6.0-8.3)
--- NOTE | 2022-02-26 19:27 | History & Physical Report ---
Date of Service February 26, 2022 Assessment & Plan (1) RUQ abdominal pain: (2) Elevated transaminase level: (3) Cholelithiasis: Plan: - Admit to med surg with tele -Total bili 3.2, AST 632, ALT 388, alk phos 168, lipase 35, trend am LFTs -RUQ US showing hepatic steatosis, cholelithiasis, no acute cholecystitis, will order an MRCP now -consult GI, for possible ERCP -WBC 11.2, afebrile -Check blood cultures, LA and procal - treat empirically with IV zosyn -Abdominal pain is well controlled with morphine sulfate, will continue -NSS at 80 mL/h, continue n.p.o. ok with sips and chips. -Last dose of warfarin was last evening at 5 mg, will hold for now prior to poss ible procedure, checking INR now (4) Hypokalemia: Plan: -Potassium of 3.0, and give 40 meq orally, 20 meq IV, follow with a.m. labs -Likely secondary to GI losses with vomiting (5) Hyperparathyroidism: Plan: -Stable (6) Atrial fibrillation: Plan: -Rate controlled in the 90s at bedside -Holding Coumadin with possible ERCP tomorrow morning-- home regimen is 5 mg on MWF, 2.5 all other days -Checking INR now, INR with daily labs (7) Diabetes mellitus, type 2: Plan: -Last A1c was 6.7 on 11/21/2021, will repeat with a.m. labs -Holding metformin -ISS with Accu-Cheks ACHS -Patient is currently n.p.o. (8) Hypertension: Plan: -May continue losartan 50 mg every morning, atenolol 125 mg every morning, amlodipine 2.5 mg daily, hold HCTZ with BP of 110s over 50s, administering fluids as above (9) SJ on CPAP: Plan: -Patient did not bring her CPAP from home, will order for here in hospital DVT PPx - teds, scds, holding Coumadin as above CODE: Full code Dispo: From home, likely to remain in the hospital x 1-2 days History of Present Illness Chief Complaint: Abdominal pain Primary Care Provider: Megan Mak MD This is a 77-year-old female with PMHx of HTN, DM type II, hyperparathyroidism, chronic A. fib on Coumadin, diastolic dysfunction, gallstones, seasonal allergic rhinitis, venous insufficiency, severe obesity with BMI of 36, SJ on CPAP who presents to the ER with acute onset of abdominal pain, nausea and vomiting which began at 10 AM this morning. She reports that she was in her normal state of health yesterday without any abdominal complaints. She ate a salad and had several pieces of celery yesterday, and denies any high fat foods. This morning she took all of her medications with some water, and then shortly after developed nausea. Her vomitus was dark, bilious, and somewhat brown, she denies hematemesis or coffee-ground emesis. Pain was located in the right upper quadrant which is essentially subsided now since having morphine sulfate IV given in the ER. She also complains of feeling bloated which is still present. Her bowels have been moving regularly, and urinating without difficulty. She denies any fevers, sweats or chills. Patient lives at home by herself but has 2 sons who live locally and help her when she needs things. Here in the ER liver function test is found to be elevated, with total bilirubin of 3.2, AST 632, ALT 388, alk phos 168, lipase 35. Gallbladder ultrasound shows hepatic steatosis and cholelithiasis without evidence of cholecystitis. Patient notes that she has been recently placed on Norvasc (02/14) to help with circulation in her lower legs, and that she typically has cold feet and purple toes. She saw cardiology at the end of December. Caitlin Gomez follows her routinely, and her HCTZ was reduced to 12.5 mg daily due to complaints of dizziness. This seems to be improved with dose reduction. She does not notice the dizziness is worse with the addition of Norvasc recently. Patient does not use ambulatory device. Allergies Allergy/AdvReac Type Severity Reaction Status Date / Time doxycycline Allergy Intermediate RASH Verified 02/26/22 15:49 acetaminophen [From Tylenol] AdvReac Intermediate YEAST Verified 02/26/22 15:49 INFECTIONS Home Medications Medication Instructions Recorded Confirmed Type atorvastatin 20 mg tablet (Lipitor) 20 mg PO QPM 12/11/18 02/26/22 History loratadine 10 mg tablet (Claritin) 10 mg PO QPM 12/11/18 02/26/22 History metformin 500 mg tablet,extended 1,000 mg PO QPM 12/11/18 02/26/22 History release 24 hr warfarin 5 mg tablet See Rx Instructions .ROUTE .COMPLEX 12/11/18 02/26/22 History blood sugar diagnostic (OneTouch #10 ea 12/03/19 05/23/21 History Ultra Blue Test Strip) Wheeled Walker #1 ea 02/23/20 05/04/21 Rx 3-in-1 Commode #1 ea 03/02/20 05/04/21 Rx tramadol 50 mg tablet 50 - 100 mg PO Q6H PRN #30 tab 04/16/20 02/26/22 Rx calcitriol 0.25 mcg capsule 0.25 mcg PO QAM #90 cap 12/03/21 02/26/22 Rx amlodipine 2.5 mg tablet 2.5 mg PO QAM 02/26/22 02/26/22 History atenolol 50 mg tablet 125 mg PO QAM 02/26/22 02/26/22 History hydrochlorothiazide 25 mg tablet 12.5 mg PO QAM 02/26/22 02/26/22 History losartan 50 mg tablet 50 mg PO QAM 02/26/22 02/26/22 History Past Med/Surg History Medical History (Updated 02/26/22 @ 19:41 by Cara Stephenson PA-C) Arthritis Atrial fibrillation DX'D 7 YRS AGO-ON WARFARIN-F/U DR CEBALLOS Diabetes mellitus, type 2 GERD (gastroesophageal reflux disease) Hyperparathyroidism Hypertension Left knee DJD On anticoagulant therapy Osteoporosis Vitamin D deficiency Surgical History History of cardioversion X 2 History of parathyroid surgery Hx of colonoscopy Hx of hysterectomy Status post total hip replacement, right Family History Sister Breast cancer Unknown Cardiac disorder Brother Family history of diabetes mellitus Social History Smoking Status: Former smoker Second Hand Exposure: No; Do You Dip or Chew Tobacco: No; Tobacco Cessation Education Requested by Patient: No Hx Alcohol Use: No Hx Substance Use: No Preferred Language: Croatian Communication Ability: Effective Grounds Manager Required: No Beliefs That Will Affect Care: None marital status: Current Living Situation: Alone Other Information That Helps Us Care for You: No Feels Safe at Home: Yes Assistive Devices: Glasses Review of Systems Review of Systems: Constitutional: No fever, sweats or chills Eyes: No diplopia, no worsening or blurred vision ENT: normal hearing, no trouble swallowing Respiratory: No cough, sputum, dyspnea at rest or on exertion Cardiovascular: No chest pain, tightness or palpitations, + cold feet, reports being recently placed on Norvasc to help circulation by her PCP Abdomen: As per HPI + nausea, vomiting, no diarrhea or constipation Musculoskeletal: No joint pain, calf pain, + intermittent lower extremity swelling, none currently Neurologic: No weakness, numbness/tingling, or balance problems Psychiatric: No anxiety or depression Skin: No rash or itch Physical Exam Physical Exam: General: awake, alert, no apparent distress, morbid obesity with BMI of 36.8 Head: Normocephalic, atraumatic ENT: PERRL, EOMI, no pharyngeal exudate, mucous membranes moist Chest: Clear to auscultation, on room air, no adventitious breath sounds Cardiac: Regular rate and rhythm, no murmur, no JVD, normal peripheral pulses, good capillary refill Abdominal: NABS x 4 quadrants, soft, + abdominally obese, + distended, nontender to palpation, no rebound or guarding Extremities: Normal inspection, no peripheral edema or erythema, + cold feet, toes are somewhat purple, adequate pulses in posterior tibial and dorsalis pedis bilaterally, calfs nontender to palpation Psych: Normal mood and affect Neuro: AAO x 3, strength intact bilaterally and rated 5/5, no motor deficits, speech is clear, no peripheral sensory deficits Results & Data Results & Data ([facility]) Vital Signs (Past 12 Hours) Vital Signs Temp Pulse Pulse Resp Pulse Ox 02/26/22 18:05 86 16 95 02/26/22 16:23 82 16 95 02/26/22 14:38 91 H 18 99 02/26/22 14:01 96 02/26/22 13:01 37.1 C 89 16 97 Laboratory Results 02/26/22 02/26/22 02/26/22 Unknown 15:09 14:10 WBC 11.20 H RBC 3.97 L Hgb 11.9 L Hct 36.5 L MCV 91.9 MCH 30.0 MCHC 32.6 RDW Std Deviation 46.3 RDW Coeff of Skye 13.7 Plt Count 151 MPV 11.9 H Immature Gran % (Auto) 0.2 Neut % (Auto) 90.2 Lymph % (Auto) 3.5 [place] % (Auto) 5.9 Eos % (Auto) 0.1 Baso % (Auto) 0.1 Neut # (Auto) 10.11 H Lymph # (Auto) 0.39 L [place] # (Auto) 0.66 H Eos # (Auto) 0.01 Baso # (Auto) 0.01 Immature Gran # (Auto) 0.02 Sodium 142 Potassium 3.0 L Chloride 101 Carbon Dioxide 33 H Anion Gap 8 BUN 27 H Creatinine 0.97 Est Cr Clr Drug Dosing 60.1 Est GFR ( Amer) 64.8 Est GFR (Non-Af Amer) 55.9 BUN/Creatinine Ratio 27.8 H Glucose 111 H Calcium 9.5 Total Bilirubin 3.2 H AST 632 H ALT 388 H Alkaline Phosphatase 168 H Total Protein 6.3 Albumin 3.7 Globulin 2.6 Albumin/Globulin Ratio 1.4 Lipase 35 SARS-CoV-2, RNA, NAAT NEGATIVE Diagnostic Findings Gallbladder Ultrasound 02/26/22 13:34 US gallbladder CLINICAL HISTORY: ruq pain eval for cholecystitis TECHNIQUE: Multiple real-time sonographic images of the right upper quadrant were obtained. Comparison: None available at the time of this dictation. FINDINGS: The liver is diffusely echogenic in appearance with poor ultrasound penetration, with normal contour, which is consistent with fatty infiltration. A tiny hepatic cyst is seen. No intrahepatic ductal dilatation is seen. Linear hyperechoic foci with posterior shadowing are identified layering dependently within the gallbladder, which are consistent with gallstones. The gallbladder wall is not thickened. There is no pericholecystic fluid present. A sonographic Roe's sign was not elicited by the content management consultant. The common duct measures 0.7 cm in diameter at the level of the hepatic artery. The visualized portions of the pancreas appear normal. The right kidney shows normal echogenicity, cortical thickness and renal contour. The right kidney shows no evidence of hydronephrosis or mass. No ascites or free fluid is seen in Solares's pouch. IMPRESSION: Hepatic steatosis. Cholelithiasis without evidence of cholecystitis. ACT 112: Negative or not required by law. Electronically signed by: Jerome Petersen M.D. 02/26/2022 3:39 PM Code Status & VTE Plan Code Status Full code-discussed with the patient at bedside VTE Prophylaxis Plan VTE Prophylaxis will be ordered: Yes Supervising Physician Co-Signing Physician Notes I have seen and examined the patient and have discussed the case with the provider above. I agree with the assessment and plan as stated with the following exceptions. 77 yo F presenting with decreased appetite after vomiting and workup revealing an obstructive hepatopathy with elevated LFTs. RUQ US with evidence of cholelithiasis. Patient reports shaking chills on arrival to the ER. Blood cultures added and pending, procalcitonin s 42 and lactate was elevated >2. Added additional IVF and repeat lactate pending. Monitor on telemetry overnight. Cover with zosyn. Physical exam reveals normal mentation, no tachypnea with a normal heart and lung exam except or some mild tachycardia. Abdomen is soft, NTND and the patient is not jaundiced. LAbs and workup as above. MRCP pending. Etiologies for transaminitis and symptoms include but are not limited to acute choledocholithiasis wtih ascending cholangitis or cholecystitis, acute hepatitis, etc. Monitor closely for possible developing sepsis. DO José Luis (1) Cholelithiasis Biliary obstruction: with biliary obstruction Cholecystitis presence: without cholecystitis Cholelithiasis location: gallbladder and bile duct Qualified Code(s): K80.71 - Calculus of gallbladder and bile duct without cholecystitis with obstruction
[2022-02-26] MEDS ORDERED: SODIUM CHLORIDE 0.9% 1000ML 500 ML IV ONE (19:35)
[2022-02-26] MEDS ORDERED: PIPERACILLIN/TAZOBACTAM 4.5 GM/120 ML BAG IV ONE (19:36)
[2022-02-26 20:38] LABS: INR 2.7 (0.9-1.1); Prothrombin Time 27.3 Seconds (9.0-12.0)
[2022-02-26] MEDS ORDERED: DEXTROSE 50% 50 ML SYRINGE IV PRN (21:56)
[2022-02-26] MEDS ORDERED: GLUCOSE 10 TABS/TUBE PO PRN (21:56)
[2022-02-26] MEDS ORDERED: GLUCOSE 40% GEL 15 GM TUBE PO PRN (21:56)
[2022-02-26] MEDS ORDERED: GLUCAGON FOR INJ 1 MG VIAL SQ PRN (21:56)
[2022-02-26] MEDS ORDERED: ACETAMINOPHEN 325 MG TAB PO PRN (21:56)
[2022-02-26] MEDS ORDERED: ONDANSETRON INJ 2 MG/ML 2 ML VIAL IV PRN (21:56)
[2022-02-26] MEDS ORDERED: CARBOHYDRATES FOR HYPOGLYCEMIA PO PRN (21:56)
[2022-02-26] MEDS ORDERED: POTASSIUM CHLORIDE CRTAB 20 MEQ TABCR PO STA (21:56)
[2022-02-26 22:53] LABS: INR 2.8 (0.9-1.1); Prothrombin Time 28.1 Seconds (9.0-12.0)
[2022-02-26] MEDS: POTASSIUM CHLORIDE / WTR 10 MEQ/100 ML PLCT IV SCH (23:41)
[2022-02-26] MEDS: LACTATED RINGER'S 1,000 ML IV SCH (23:41)
[2022-02-26] MEDS: ATORVASTATIN 20 MG TAB PO SCH (23:46)
[2022-02-27] MEDS: INSULIN ASPART PER UNIT SC SCH ×5 (00:08→21:42)
[2022-02-27] MEDS: POTASSIUM CHLORIDE / WTR 10 MEQ/100 ML PLCT IV SCH (01:23)
[2022-02-27 01:29] LABS: Appearance Urine Turbid (Clear); Bacteria Urine Automated 1+ (Negative); Blood Urine Trace (Negative); Color Urine Dark Yellow; Epithelial Cell Urine Auto 20-30 /lpf (0-5); Glucose Urine UA Negative (Negative); Ketones Urine Trace (Negative); Leukocyte Esterase Urine 3+ (Negative); Nitrite Urine Positive (Negative); Protein Urine 1+ (Negative); Specific Gravity Urine 1.026 (1.000-1.030); Urobilinogen Urine Negative (Negative); WBC Urine Automated >30 /hpf (0-5)
[2022-02-27 01:40] LABS: Bilirubin Urine 2+ (Negative)
[2022-02-27 01:47] LABS: Amorphous Sediment Urine Present (None Prsent); RBC Urine Automated 0-4 /hpf (0-4)
[2022-02-27] MEDS: PIPERACILLIN/TAZOBACTAM 3.375 GM in DEXTROSE 5% 100 ML IV SCH ×3 (03:11→18:00)
[2022-02-27 07:39] LABS: Hematocrit (blood only) 32.8 % (37-47); Hemoglobin 10.7 g/dL (12.0-16.0); Mean Corpuscular Hemoglobin 30.4 pg (25-34); Mean Corpuscular Hgb Conc 32.6 g/dL (32-36); Mean Corpuscular Volume 93.2 fL (80-100); Mean Platelet Volume 12.5 fL (7.4-10.4); Platelet Count 147 K/uL (130-400); RDW Coefficient of Variation 14.2 % (11.5-14.5); RDW Standard Deviation 48.4 fL (36.4-46.3); Red Blood Count 3.52 M/uL (4.2-5.4); White Blood Count 14.67 K/uL (4.8-10.8)
[2022-02-27] MEDS: LACTATED RINGER'S 1,000 ML IV SCH (07:47)
[2022-02-27 08:05] LABS: INR 2.8 (0.9-1.1); Prothrombin Time 28.4 Seconds (9.0-12.0)
[2022-02-27 08:10] LABS: Albumin Globulin Ratio 1.3 (0.9-2); Albumin Level 3.1 gm/dl (3.4-5.0); BUN Creatinine Ratio 20.1 (10-20); Bilirubin Direct 1.6 mg/dl (0-0.2); Bilirubin,Total 4.8 mg/dl (0.2-1.0); Calcium 8.4 mg/dl (8.5-10.1); Creatinine Clr Calc Pharmacy 37.8 ml/min; Est GFR (African American) 37.1 ml/min; Globulin 2.3 gm/dl (2.5-4.0); Potassium 3.6 mmol/L (3.5-5.1); Total Protein 5.4 gm/dl (6.0-8.3)
[2022-02-27 08:17] LABS: Thyroid Stimulating Hormone 0.096 uIu/ml (0.300-4.500)
[2022-02-27] MEDS ORDERED: PHYTONADIONE PED 1 MG/0.5ML AMP/SYRG IV STA (08:34)
[2022-02-27] MEDS ORDERED: SODIUM CHLORIDE 0.9% 250 ML IV PRN (08:34)
[2022-02-27] MEDS ORDERED: PHYTONADIONE 10 MG in DEXTROSE 5% 50 ML IV ONE (08:45)
[2022-02-27 08:53] LABS: T4 Free Thyroxine 1.51 ng/dl (0.61-1.60)
[2022-02-27] MEDS ORDERED: LOSARTAN POTASSIUM 50 MG TAB PO SCH (09:00)
[2022-02-27] MEDS ORDERED: PIPERACILLIN/TAZOBACTAM 2.25 GM in DEXTROSE 5% 100 ML IV SCH (09:00)
[2022-02-27 09:10] LABS: Estimated Average Glucose 146 mg/dl; Hemoglobin A1C 6.7 % (4.5-5.6)
[2022-02-27 09:23] LABS: A calco-baum cmplx NotReported Not Detected (NotDetected); Bact fragilis Not Reported Not Detected (NotDetected); C auris Not Reported Not Detected (NotDetected); CTX-M Resistant Gene Not Detected (NotDetected); Calbicans Not Reported Not Detected (NotDetected); Candida glabrata Not Reported Not Detected (NotDetected); Candida krusei Not Reported Not Detected (NotDetected); Cneoformans/gatti Not Reported Not Detected (NotDetected); Cparapsilosis Not Reported Not Detected (NotDetected); Ctropicalis Not Reported Not Detected (NotDetected); E cloacae compx Not Reported Not Detected (NotDetected); Efaecalis Not Reported Not Detected (NotDetected); Efaecium Not Reported Not Detected (NotDetected); Enterobacterales DETECTED (NotDetected); Enterobacterales Not Reported DETECTED (NotDetected); Escherichia coli Not Reported DETECTED (NotDetected); H influenzae Not Reported Not Detected (NotDetected); IMP Resistant Gene Not Detected (NotDetected); K aerogenes Not Reported Not Detected (NotDetected); KPC Resistant Gene Not Detected (NotDetected); Koxytoca Not Reported Not Detected (NotDetected); Kpneumoniae grp Not Reported Not Detected (NotDetected); Lmonocyt Not Reported Not Detected (NotDetected); N meningitidis Not Reported Not Detected (NotDetected); NDM Resistant Gene Not Detected (NotDetected); OXA 48 Like Resistant Gene Not Detected (NotDetected); P aeruginosa Not Reported Not Detected (NotDetected); Proteus spp Not Reported Not Detected (NotDetected); Salmonella spp Not Reported Not Detected (NotDetected); Smarcescens Not Reported Not Detected (NotDetected); Staph lugdunensis Not Reported Not Detected (NotDetected); Staph spp. Not Reported Not Detected (NotDetected); Staphaureus Not Reported Not Detected (NotDetected); Staphepi Not Reported Not Detected (NotDetected); Stenmaltophilia Not Reported Not Detected (NotDetected); Strep agal(GrpB) Not Reported Not Detected (NotDetected); Strep pneum Not Reported Not Detected (NotDetected); Strep pyog (GrpA) Not Reported Not Detected (NotDetected); Strep spp Not Reported Not Detected (NotDetected); VIM Resistant Gene Not Detected (NotDetected); mcr-1 Colistin Resistant Gene Not Detected (NotDetected)
--- NOTE | 2022-02-27 09:40 | Magnetic Resonance Report ---
MR MRCP HISTORY: 77 years-old Female Eval gallstones, elevated LFTs acutely elevated LFTs with nausea and vo miting COMPARISON: Ultrasound study of same day TECHNIQUE: MRCP without the use of IV contrast was obtained according to institutional protocol. FINDINGS: The animal hospital clerk localizer images demonstrate cardiomegaly. The study is motion degraded. Mild bilateral per inephric stranding without hydronephrosis. Mildly atrophic pancreas. Visualized adrenal glands are un remarkable. 10 mm T2 hyperintense lesion of the right hepatic lobe on image 7 series 3 is incompletel y characterized on this exam. The aorta and IVC are unremarkable. There is no lymphadenopathy. Sugges geeta small hiatal hernia. No bowel obstruction or bowel wall thickening. No free fluid. Unremarkable s oft tissues. Distended gallbladder containing numerous gallstones. No gallbladder wall thickening or pericholecyst ic fluid identified. There is a 6 mm ovoid filling defects noted within the distal common bile duct. The common bile duct measures 7 mm. No intrahepatic biliary ductal dilation. The visualized cystic du ct appears normal. No pancreatic ductal dilation. There is a 9 mm probable sidebranch IPMN noted with in the pancreatic body. IMPRESSION: 1. Motion degraded exam. 2. Cholelithiasis with gallbladder distention. No definite evidence of acute cholecystitis considerin g the limitations of the study. 3. Choledocholithiasis without appreciable intrahepatic or extrahepatic biliary ductal dilation. ACT 112: Negative or not required by law. The above report was generated using voice recognition software. It may contain grammatical, syntax o r spelling errors. Electronically signed by: Mukesh De León M.D. 02/27/2022 9:39 AM
[2022-02-27] MEDS: CALCITRIOL 0.25 MCG CAPSULE PO SCH (09:50)
[2022-02-27] MEDS: ATENOLOL 50 MG TABLET PO SCH (09:50)
[2022-02-27] MEDS: amLODIPine BESYLATE 5 MG TAB PO SCH (09:52)
--- NOTE | 2022-02-27 10:00 | Gastrointestinal Consultation ---
Date of Consultation February 27, 2022 Assessment & Plan (1) Cholangitis: el LFTs, leukocytosis, choledocholithiasis->colangitis. Cont Zosyn, Keep NPO ERCP today by Dr. Cedeno. Reverse INR with 10mg Vit K (given an hour ago) will recheck INR around 2PM. Will have 2U FFP on standby. Supervising Physician Co-Signing Physician Notes I performed a history and physical examination of the patient today, including specifically on physical exam - soft abdomen. I have discussed the patient's management with the advanced practitioner. Please refer to the nurse practit barney's note for the documented findings and plan of care. Urgent ERCP today due to cholangitis. History of Present Illness Reason for Consultation: Cholelithiasis, elevated transaminases, ERCP? Requesting Physician: Brianna Stephenson Attending Physician: Radha Ordonez, History of Present Illness Ms Yue Keller is a 77 yr old female pt of Dr. Obdulio schulz a hx of SJ on CPAP, obesity,HTN, DM type II, hyperparathyroidism, A-fib (on Coumadin, INR2.8 - being reversed), diastolic dysfunction, gallstones. She experienced the sudden onset of upper abd pain, nuasea, sweating, weakness around 10 AM yesterday morning and presented to the ED. On arrival, she had leukocytosis, elevated LFTs and US w gallstones and MRCP with a stone in the CBD. She has remained hemodynamically stable. Though she is awake, alert, oriented, afebrile w only mild discomfort, her LFTs and leukocytosis worsened overnight. Allergies Allergy/AdvReac Type Severity Reaction Status Date / Time doxycycline Allergy Intermediate RASH Verified 02/26/22 15:49 acetaminophen [From Tylenol] AdvReac Intermediate YEAST Verified 02/26/22 15:49 INFECTIONS Home Medications Medication Instructions Recorded Confirmed Type atorvastatin 20 mg tablet (Lipitor) 20 mg PO QPM 12/11/18 02/26/22 History loratadine 10 mg tablet (Claritin) 10 mg PO QPM 12/11/18 02/26/22 History metformin 500 mg tablet,extended 1,000 mg PO QPM 12/11/18 02/26/22 History release 24 hr warfarin 5 mg tablet See Rx Instructions .ROUTE .COMPLEX 12/11/18 02/26/22 History blood sugar diagnostic (OneTouch #10 ea 12/03/19 05/23/21 History Ultra Blue Test Strip) Wheeled Walker #1 ea 02/23/20 05/04/21 Rx 3-in-1 Commode #1 ea 03/02/20 05/04/21 Rx tramadol 50 mg tablet 50 - 100 mg PO Q6H PRN #30 tab 04/16/20 02/26/22 Rx calcitriol 0.25 mcg capsule 0.25 mcg PO QAM #90 cap 12/03/21 02/26/22 Rx amlodipine 2.5 mg tablet 2.5 mg PO QAM 02/26/22 02/26/22 History atenolol 50 mg tablet 125 mg PO QAM 02/26/22 02/26/22 History hydrochlorothiazide 25 mg tablet 12.5 mg PO QAM 02/26/22 02/26/22 History losartan 50 mg tablet 50 mg PO QAM 02/26/22 02/26/22 History Patient History Medical History Arthritis Atrial fibrillation DX'D 7 YRS AGO-ON WARFARIN-F/U DR CEBALLOS Diabetes mellitus, type 2 GERD (gastroesophageal reflux disease) Hyperparathyroidism Hypertension Left knee DJD On anticoagulant therapy Osteoporosis Vitamin D deficiency Surgical History History of cardioversion X 2 History of parathyroid surgery Hx of colonoscopy Hx of hysterectomy Status post total hip replacement, right Family History Sister Breast cancer Unknown Cardiac disorder Brother Family history of diabetes mellitus Social History Smoking Status: Former smoker Second Hand Exposure: No; Do You Dip or Chew Tobacco: No; Tobacco Cessation Education Requested by Patient: No Hx Alcohol Use: No Hx Substance Use: No Preferred Language: New Zealander Communication Ability: Effective Feed Miller Required: No Beliefs That Will Affect Care: None marital status: Current Living Situation: Alone Other Information That Helps Us Care for You: No Feels Safe at Home: Yes Assistive Devices: Cane and Walker Review of Systems Review of Systems: ROS: Gen: +weakness, chills/sweats, Has had some planned weight loss recently Eyes: No eye redness, or pain, no recent vision changes Resp: + mild chronic cough, not recently worsened; No SOB Cardio: + chronic palpitations/irregular beats w A-fib, no chest pain GI: As per HPI, otherwise (-) : Denies pain on urination Skin: No jaundice, itching or new rashes Physical Exam Constitutional: well developed, + ill appearing, + thin and cooperative Eyes: PERRL, conjunctivae normal, anicteric sclerae ENMT: external ear and nose normal, oropharynx normal Neck: trachea midline, no thyromegaly Respiratory: normal respiratory effort, lungs clear to auscultation normal respiratory effort and able to speak in complete sentences; no respiratory distress, no labored breathing, does not use accessory muscles and no cough Cardiovascular: Rate/Rhythm: + irregularly irregular no murmurs; no edema Gastrointestinal (Abdomen): Inspection/Auscultation: abdomen normal to inspection and normal bowel sounds; abdomen not distended and no abdominal edema Percussion/Palpation: + abdomen tender (Mild diffuse adbdominal msk tenderness. No signs of acute abdomen.) and abdomen soft; no guarding and abdomen not rigid Skin: no rashes, warm and dry normal turgor and + pallor Neurologic: PERRL, EOMI, accommodation nl, no face palsy, no dysarthria awake; not confused Psychiatric: A+Ox3, euthymic affect Orientation: alert, oriented x 3 and cooperative Results & Data ([facility]) Vital Signs (Past 12 Hours) Vital Signs Temp Pulse Pulse Resp BP Pulse Ox 02/27/22 09:48 36.8 C 78 18 101/62 93 02/27/22 07:28 80 02/27/22 07:05 36.9 C 84 16 110/71 97 02/27/22 02:44 37.0 C 93 H 18 100/63 97 02/26/22 22:58 86 Laboratory Results WBC 14, Hb 10, Hct 32, Plts 147, Na 142, K 3.6, Cl 102, CO2 33, BUN 31, Cr 1.54, glucose 132. Diagnostic Findings US 02/26/22: Hepatic steatosis. Cholelithiasis without evidence of cholecystitis. MRCP 02/27/22: 1. Motion degraded exam. 2. Cholelithiasis with gallbladder distention. No definite evidence of acute cholecystitis considering the limitations of the study. 3. Choledocholithiasis without appreciable intrahepatic or extrahepatic biliary ductal dilation.
--- NOTE | 2022-02-27 11:48 | Surgery Consultation ---
Date of Consultation February 27, 2022 Assessment & Plan (1) Cholangitis: This is a 77y F with a PMH of afib on coumadin, DM, HTN, SJ on CPAP, who presented to the [facility] ED on 02/26/22 with complaints of abdominal pain, nausea/vomiting starting yesterday. Due to the sudden onset and severity of her symptoms she presented to the ER for evaluation. In the ER she underwent a RUQ US showed +cholelithiasis without evidence of cholecystitis. MRCP showed +cholelithiasis with gallbladder distention along with evidence of choledocholithiasis. Labs today show a WBC 14, Cr: 1.5, Lactate: 2.3. Elevated LFTs- Tb:4.8, AST: 419, ALT: 433, AlkP: 125. On exam patient's abdomen is soft with ttp in the RUQ. Patient has an INR of 2.8 and has been given vitamin K in addition to FFP to reverse. Repeat INR is pending at 2. If at an appropriate level GI is planning on performing ERCP today and we may add on lap fatimah to perform in tandem.Patient agreeable to plan. Supervising Physician Co-Signing Physician Notes Dr. Cuevas evaluated the patient and discussed with her laparoscopic cholecystectomy She wishes to proceed-hopefully can perform after her ERCP today History of Present Illness Attending Physician: Radha Ordonez, History of Present Illness This is a 77y F with a PMH of afib on coumadin, DM, HTN, SJ on CPAP, who presented to the [facility] ED on 02/26/22 with complaints of abdominal pain, nausea/vomiting. The patient reports her discomfort starting yesterday at 10am after having toast/coffee for breakfast. The pain felt like gas pains throughout her whole abdomen, but mostly in the right upper belly. She developed nausea/vomiting and chills which prompted her to come to the ER for evaluation. In the ER she underwent a RUQ US showed +cholelithiasis without evidence of cholecystitis. MRCP confirmed +cholelithiasis with gallbladder distention in addition to showing evidence of choledocholithiasis. Patient denies any CP/SOB, fevers, or change in bowel habits. She is unsure if she had experienced issues like this in the past. Usually no issue with eating fatty/greasy/spicy foods. Previous abdominal surgical history includes an open hysterectomy. Last took her Coumadin yesterday AM. Allergies Allergy/AdvReac Type Severity Reaction Status Date / Time doxycycline Allergy Intermediate RASH Verified 02/26/22 15:49 acetaminophen [From Tylenol] AdvReac Intermediate YEAST Verified 02/26/22 15:49 INFECTIONS Home Medications Medication Instructions Recorded Confirmed Type atorvastatin 20 mg tablet (Lipitor) 20 mg PO QPM 12/11/18 02/26/22 History loratadine 10 mg tablet (Claritin) 10 mg PO QPM 12/11/18 02/26/22 History metformin 500 mg tablet,extended 1,000 mg PO QPM 12/11/18 02/26/22 History release 24 hr warfarin 5 mg tablet See Rx Instructions .ROUTE .COMPLEX 12/11/18 02/26/22 History blood sugar diagnostic (OneTouch #10 ea 12/03/19 05/23/21 History Ultra Blue Test Strip) Wheeled Walker #1 ea 02/23/20 05/04/21 Rx 3-in-1 Commode #1 ea 03/02/20 05/04/21 Rx tramadol 50 mg tablet 50 - 100 mg PO Q6H PRN #30 tab 04/16/20 02/26/22 Rx calcitriol 0.25 mcg capsule 0.25 mcg PO QAM #90 cap 12/03/21 02/26/22 Rx amlodipine 2.5 mg tablet 2.5 mg PO QAM 02/26/22 02/26/22 History atenolol 50 mg tablet 125 mg PO QAM 02/26/22 02/26/22 History hydrochlorothiazide 25 mg tablet 12.5 mg PO QAM 02/26/22 02/26/22 History losartan 50 mg tablet 50 mg PO QAM 02/26/22 02/26/22 History Patient History Medical History Arthritis Atrial fibrillation DX'D 7 YRS AGO-ON WARFARIN-F/U DR CEBALLOS Diabetes mellitus, type 2 GERD (gastroesophageal reflux disease) Hyperparathyroidism Hypertension Left knee DJD On anticoagulant therapy Osteoporosis Vitamin D deficiency Surgical History History of cardioversion X 2 History of parathyroid surgery Hx of colonoscopy Hx of hysterectomy Status post total hip replacement, right Family History Sister Breast cancer Unknown Cardiac disorder Brother Family history of diabetes mellitus Social History Smoking Status: Former smoker Second Hand Exposure: No; Do You Dip or Chew Tobacco: No; Tobacco Cessation Education Requested by Patient: No Hx Alcohol Use: No Hx Substance Use: No Preferred Language: Libyan Communication Ability: Effective 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 Beliefs That Will Affect Care: None marital status: Current Living Situation: Alone Other Information That Helps Us Care for You: No Feels Safe at Home: Yes Assistive Devices: Glasses Review of Systems Constitutional: + chills; no fever Respiratory: no dyspnea Cardiovascular: no chest pain Gastrointestinal: + abdominal pain, + nausea and + vomiting; no change in bowel habits Physical Exam Physical Exam: awake/alert, no distress Respiratory: normal respiratory effort Gastrointestinal (Abdomen): Inspection/Auscultation: + abdominal surgical scar (infraumbilical ); abdomen not distended Percussion/Palpation: + abdomen tender (in the RUQ) and abdomen soft Results & Data ([facility]) Vital Signs (Past 12 Hours) Vital Signs Temp Pulse Pulse Resp BP Pulse Ox 02/27/22 10:25 36.8 C 82 18 101/58 L 92 02/27/22 10:02 36.8 C 78 18 102/68 91 02/27/22 09:48 36.8 C 78 18 101/62 93 02/27/22 07:28 80 02/27/22 07:05 36.9 C 84 16 110/71 97 02/27/22 02:44 37.0 C 93 H 18 100/63 97 Diagnostic Findings US gallbladder CLINICAL HISTORY: ruq pain eval for cholecystitis TECHNIQUE: Multiple real-time sonographic images of the right upper quadrant were obtained. Comparison: None available at the time of this dictation. FINDINGS: The liver is diffusely echogenic in appearance with poor ultrasound penetration, with normal contour, which is consistent with fatty infiltration. A tiny hepatic cyst is seen. No intrahepatic ductal dilatation is seen. Linear hyperechoic foci with posterior shadowing are identified layering dependently within the gallbladder, which are consistent with gallstones. The gallbladder wall is not thickened. There is no pericholecystic fluid present. A sonographic Roe's sign was not elicited by the jacker. The common duct measures 0.7 cm in diameter at the level of the hepatic artery. The visualized portions of the pancreas appear normal. The right kidney shows normal echogenicity, cortical thickness and renal contour. The right kidney shows no evidence of hydronephrosis or mass. No ascites or free fluid is seen in Solares's pouch. IMPRESSION: Hepatic steatosis. Cholelithiasis without evidence of cholecystitis. ACT 112: Negative or not required by law Electronically signed by: Jerome Petersen M.D. 02/26/2022 3:39 PM MR MRCP HISTORY: 77 years-old Female Eval gallstones, elevated LFTs acutely elevated LFTs with nausea and vomiting COMPARISON: Ultrasound study of same day TECHNIQUE: MRCP without the use of IV contrast was obtained according to institutional protocol. FINDINGS: The bee robber localizer images demonstrate cardiomegaly. The study is motion degraded. Mild bilateral perinephric stranding without hydronephrosis. Mildly atrophic pancreas. Visualized adrenal glands are unremarkable. 10 mm T2 hyperintense lesion of the right hepatic lobe on image 7 series 3 is incompletely characterized on this exam. The aorta and IVC are unremarkable. There is no lymphadenopathy. Suggested small hiatal hernia. No bowel obstruction or bowel wall thickening. No free fluid. Unremarkable soft tissues. Distended gallbladder containing numerous gallstones. No gallbladder wall thickening or pericholecystic fluid identified. There is a 6 mm ovoid filling defects noted within the distal common bile duct. The common bile duct measures 7 mm. No intrahepatic biliary ductal dilation. The visualized cystic duct appears normal. No pancreatic ductal dilation. There is a 9 mm probable sidebranch IPMN noted within the pancreatic body. IMPRESSION: 1. Motion degraded exam. 2. Cholelithiasis with gallbladder distention. No definite evidence of acute cholecystitis considering the limitations of the study. 3. Choledocholithiasis without appreciable intrahepatic or extrahepatic biliary ductal dilation. ACT 112: Negative or not required by law. The above report was generated using voice recognition software. It may contain grammatical, syntax or spelling errors. Electronically signed by: Mukesh De León M.D. 02/27/2022 9:39 AM PG Care Time/CCT Total # of Minutes Spent Total Time Spent with Patient: Total time spent is greater than 50% in coordination of care (as documented) at patient's floor/unit and/or counseling patient: Coding Level of Care Code 22469 Initial Inpt Care Lvl 1 Diagnoses Cholangitis K83.09
[2022-02-27] MEDS ORDERED: SUGAMMADEX SODIUM 200 MG/2 ML VIAL IV ONE (13:36)
[2022-02-27] MEDS ORDERED: ONDANSETRON INJ 2 MG/ML 2 ML VIAL ONE (13:37)
[2022-02-27] MEDS ORDERED: ROCURONIUM BROMIDE 10 MG/ML 5 ML VIAL IV ONE (13:37)
[2022-02-27] MEDS ORDERED: DEXAMETHASONE SOD INJ 4 MG/ML VIAL ONE (13:37)
[2022-02-27] MEDS ORDERED: PROPOFOL IV EMULSION 10 MG/ML 20 ML VIAL IV ONE (13:37)
[2022-02-27] MEDS ORDERED: fentaNYL citrate 100 MCG/2 ML VIAL ONE (13:38)
--- NOTE | 2022-02-27 13:48 | Hospitalist Progress Note ---
Date of Service February 27, 2022 Assessment & Plan (1) Sepsis: Plan: Early Sepsis, POA. Resuscitated and awaiting definitive source control with ERCP later today. (2) Gram-negative bacteremia: Plan: cont Zosyn, source control now achieved. (3) Elevated transaminase level: Plan: 2/2 biliary obstruction. Improved and expect to continue to improve s/p ERCP with stent placement into CBD today. (4) Cholelithiasis: Plan: - Admit to med surg with tele -Total bili 3.2, AST 632, ALT 388, alk phos 168, lipase 35, trend am LFTs -RUQ US showing hepatic steatosis, cholelithiasis, no acute cholecystitis, will order an MRCP now -consult GI, for possible ERCP -WBC 11.2, afebrile -Check blood cultures, LA and procal - treat empirically with IV zosyn -Abdominal pain is well controlled with morphine sulfate, will continue -NSS at 80 mL/h, continue n.p.o. ok with sips and chips. -Last dose of warfarin was last evening at 5 mg, will hold for now prior to possible procedure, checking INR now (5) Hypokalemia: Plan: -repleted (6) UTI (urinary tract infection): Plan: UA appeared positive for infection however, patient was without UTI symptoms. Covered on the zosyn that is covering for GI infection. Culture results are negative. (7) Atrial fibrillation: Plan: -Rate controlled in the 90s at bedside -Holding Coumadin with possible ERCP-- home regimen is 5 mg on MWF, 2.5 all other days -Checking INR now, INR with daily labs (8) Diabetes mellitus, type 2: Plan: -Last A1c was 6.7 on 11/21/2021, will repeat with a.m. labs -Holding metformin -insulin coverage intermittently NPO (9) Hypertension: Plan: -May continue losartan 50 mg every morning, atenolol 125 mg every morning, amlodipine 2.5 mg daily, hold HCTZ (10) SJ on CPAP: Plan: CPAP qHS (11) DVT prophylaxis: Plan: DVT PPx - teds, scds, holding Coumadin as above CODE: Full code Dispo: From home, likely to remain in the hospital x 1-2 days post op. DO [facility] Admission and Anticipated Discharge Date Admission Date: February 26, 2022 Subjective 77 yo F with possible developing sepsis 2/2 biliary source. doing well, awaiting ERCP denies any issues breathing normally denies pain in her abdomen. Review of Systems Review of Systems: All systems were reviewed and negative except as indicate above. Physical Exam Physical Exam: CONSTITUTIONAL: obese, vitals as above, generally well- appearing, NAD EYES: normal conjunctivae, no scleral icterus, ENT: external ear and nose normal, MMM NECK: trachea midline RESPIRATORY: clear to auscultation bilaterally, no crackles, rales or wheezes, normal respiratory effort CARDIOVASCULAR: regular rate and rhythm, S1 and 2 heard without murmurs, gallops or rubs, no JVD, no peripheral edema CHEST: inspection of chest was normal GASTROINTESTINAL: soft, nontender, ND, MUSCULOSKELETAL: 5/5 strength throughout, no gross focal deficits. SKIN: warm and dry NEUROLOGIC: CN 2-12 grossly intact, no sensory deficit, normal cognition, normal speech, no tremor, no gross focal deficit. PSYCHIATRIC: alert cooperative and oriented to person, place and time. Results & Data Results & Data ([facility]) Vital Signs (Past 12 Hours) Vital Signs Temp Pulse Pulse Resp BP Pulse Ox 02/27/22 10:25 36.8 C 82 18 101/58 L 92 02/27/22 10:02 36.8 C 78 18 102/68 91 02/27/22 09:48 36.8 C 78 18 101/62 93 02/27/22 07:28 80 02/27/22 07:05 36.9 C 84 16 110/71 97 02/27/22 02:44 37.0 C 93 H 18 100/63 97 Laboratory Results Short CBC 02/26/22 02/27/22 Range/Units 15:09 06:56 WBC 11.20 H 14.67 H (4.8-10.8) K/uL Hgb 11.9 L 10.7 L (12.0-16.0) g/dL Hct 36.5 L 32.8 L (37-47) % Plt Count 151 147 (130-400) K/uL BMP 02/26/22 02/27/22 Unknown 06:56 Sodium 142 142 Potassium 3.0 L 3.6 Chloride 101 102 Carbon Dioxide 33 H 33 H BUN 27 H 31 H Creatinine 0.97 1.54 H D Glucose 111 H 136 H Calcium 9.5 8.4 L Liver Function 02/26/22 02/27/22 Range/Units Unknown 06:56 Total Bilirubin 3.2 H 4.8 H (0.2-1.0) mg/dl Direct Bilirubin 1.6 H (0-0.2) mg/dl AST 632 H 419 H (13-39) U/L ALT 388 H 433 H (7-52) U/L Alkaline Phosphatase 168 H 125 H (34-104) U/L Albumin 3.7 3.1 L (3.4-5.0) gm/dl Urine 02/26/22 Range/Units 23:10 Urine Color Dark Yellow Urine Appearance Turbid A (Clear) Urine pH 5.0 (4.5-7.5) Ur Specific [place] 1.026 (1.000-1.030) Urine Protein 1+ H (Negative) Urine Glucose (UA) Negative (Negative) Diagnostic Findings Cholangiopancreatography MRI 02/26/22 19:10 MR MRCP HISTORY: 77 years-old Female Eval gallstones, elevated LFTs acutely elevated LFTs with nausea and vomiting COMPARISON: Ultrasound study of same day TECHNIQUE: MRCP without the use of IV contrast was obtained according to institutional protocol. FINDINGS: The lining mechanic localizer images demonstrate cardiomegaly. The study is motion degraded. Mild bilateral perinephric stranding without hydronephrosis. Mildly atrophic pancreas. Visualized adrenal glands are unremarkable. 10 mm T2 hyperintense lesion of the right hepatic lobe on image 7 series 3 is incompletely characterized on this exam. The aorta and IVC are unremarkable. There is no lymphadenopathy. Suggested small hiatal hernia. No bowel obstruction or bowel wall thickening. No free fluid. Unremarkable soft tissues. Distended gallbladder containing numerous gallstones. No gallbladder wall thickening or pericholecystic fluid identified. There is a 6 mm ovoid filling defects noted within the distal common bile duct. The common bile duct measures 7 mm. No intrahepatic biliary ductal dilation. The visualized cystic duct appears normal. No pancreatic ductal dilation. There is a 9 mm probable sidebranch IPMN noted within the pancreatic body. IMPRESSION: 1. Motion degraded exam. 2. Cholelithiasis with gallbladder distention. No definite evidence of acute cholecystitis considering the limitations of the study. 3. Choledocholithiasis without appreciable intrahepatic or extrahepatic biliary ductal dilation. ACT 112: Negative or not required by law. The above report was generated using voice recognition software. It may contain grammatical, syntax or spelling errors. Electronically signed by: Mukesh De León M.D. 02/27/2022 9:39 AM Medications Administered Current Inpatient Medications Acetaminophen (Acetaminophen 325 Mg Tab) 650 mg PO Q4H PRN PRN Reason: Moderate Pain Stop: 03/28/22 21:55 Amlodipine Besylate (Amlodipine Besylate 5 Mg Tab) 2.5 mg PO QAM EMILIA Stop: 03/29/22 08:59 Last Admin: 02/27/22 09:52 Dose: 2.5 mg Documented by: Atenolol (Atenolol 50 Mg Tablet) 125 mg PO QAM EMILIA Stop: 03/29/22 08:59 Last Admin: 02/27/22 09:50 Dose: 125 mg Documented by: Atorvastatin Calcium (Atorvastatin 20 Mg Tab) 20 mg PO QPM EMILIA Stop: 03/28/22 21:55 Last Admin: 02/26/22 23:46 Dose: 20 mg Documented by: Calcitriol (Calcitriol 0.25 Mcg Capsule) 0.25 mcg PO QAM EMILIA Stop: 03/29/22 08:59 Last Admin: 02/27/22 09:50 Dose: 0.25 mcg Documented by: Dextrose (Dextrose 50% 50 Ml Syringe) 25 - 50 ml IV UD PRN; Protocol PRN Reason: Hypoglycemia Protocol Stop: 03/28/22 21:55 Glucagon (Glucagon For Inj 1 Mg Vial) 1 mg SQ UD PRN; Protocol PRN Reason: Hypoglycemia Protocol Stop: 03/28/22 21:55 Glucose (Glucose 10 Tabs/Tube) 4 - 8 tabs PO UD PRN; Protocol PRN Reason: Hypoglycemia Protocol Stop: 03/28/22 21:55 Glucose (Glucose 40% Gel 15 Gm Tube) 15 - 30 gm PO UD PRN; Protocol PRN Reason: Hypoglycemia Protocol Stop: 03/28/22 21:55 Lactated Ringer's (Lr) 1,000 mls @ 125 mls/hr IV .Q8H EMILIA Stop: 02/27/22 13:55 Last Admin: 02/27/22 07:47 Dose: 125 mls/hr Documented by: Piperacillin Sod/Tazobactam (Sod 3.375 gm/ Dextrose) 115 mls @ 28.75 mls/hr IV Q8H EMILIA; Protocol Stop: 03/09/22 01:59 Last Admin: 02/27/22 10:02 Dose: 28.8 mls/hr Documented by: Sodium Chloride (Nss) 250 mls @ 15 mls/hr IV .[id number] PRN PRN Reason: For Transfusion Stop: 02/27/22 18:36 Insulin Aspart (Insulin Aspart Per Unit) 0 units SC ACHS EMILIA Stop: 03/28/22 21:55 Last Admin: 02/27/22 12:50 Dose: Not Given Documented by: Losartan Potassium (Losartan Potassium 50 Mg Tab) 50 mg PO QAM EMILIA Stop: 03/29/22 08:59 Miscellaneous (Carbohydrates For Hypoglycemia ) 15 - 30 gm PO UD PRN PRN Reason: Hypoglycemia Protocol Stop: 03/28/22 21:55 Ondansetron HCl (Ondansetron Inj 2 Mg/Ml 2 Ml Vial) 4 mg IV Q4H PRN PRN Reason: Nausea And Vomiting Stop: 03/28/22 21:55 (1) Cholelithiasis Biliary obstruction: with biliary obstruction Cholecystitis presence: without cholecystitis Cholelithiasis location: gallbladder and bile duct Qualified Code(s): K80.71 - Calculus of gallbladder and bile duct without cholecystitis with obstruction
--- NOTE | 2022-02-27 13:49 | Anesthesiology Consultation ---
Date of Service February 27, 2022 Assessment & Plan (1) Encounter for pre-operative examination: Chart Review Chart Review: Pending: Refer to Additional Notes / Consult section INR 2.8 as of this morning - repeat pending History Surgery Operation Date: 02/27/22 11:40 Proposed Procedures p Endoscopic Retrograde Cholangiopancreatogram - Bindu Cedeno MD s Esophagogastroduodenoscopy - Bindu Cedeno MD s Laparoscopic Cholecystectomy - Shaheen Iverson MD, FACS Height/Weight Height: 5 ft 7 in Weight: 106.4 kg Allergies Allergy/AdvReac Type Severity Reaction Status Date / Time doxycycline Allergy Intermediate RASH Verified 02/26/22 15:49 acetaminophen [From Tylenol] AdvReac Intermediate YEAST Verified 02/26/22 15:49 INFECTIONS Medications Home Medications Medication Instructions Recorded Confirmed Last Taken atorvastatin 20 mg tablet (Lipitor) 20 mg PO QPM 12/11/18 02/26/22 02/25/22 loratadine 10 mg tablet (Claritin) 10 mg PO QPM 12/11/18 02/26/22 02/25/22 metformin 500 mg tablet,extended 1,000 mg PO QPM 12/11/18 02/26/22 02/26/22 release 24 hr warfarin 5 mg tablet See Rx Instructions .ROUTE .COMPLEX 12/11/18 02/26/22 02/25/22 blood sugar diagnostic (OneTouch #10 ea 12/03/19 05/23/21 Unknown Ultra Blue Test Strip) Wheeled Walker #1 ea 02/23/20 05/04/21 Unknown 3-in-1 Commode #1 ea 03/02/20 05/04/21 Unknown tramadol 50 mg tablet 50 - 100 mg PO Q6H PRN #30 tab 04/16/20 02/26/22 Unknown calcitriol 0.25 mcg capsule 0.25 mcg PO QAM #90 cap 12/03/21 02/26/22 02/26/22 amlodipine 2.5 mg tablet 2.5 mg PO QAM 02/26/22 02/26/22 02/26/22 atenolol 50 mg tablet 125 mg PO QAM 02/26/22 02/26/22 02/26/22 hydrochlorothiazide 25 mg tablet 12.5 mg PO QAM 02/26/22 02/26/22 02/26/22 losartan 50 mg tablet 50 mg PO QAM 02/26/22 02/26/22 02/26/22 Active Medications Generic Name Dose Route Start Last Admin Trade Name Crispin PRN Reason Stop Dose Admin Amlodipine Besylate 2.5 mg 02/27/22 09:00 02/27/22 09:52 Amlodipine Besylate 5 Mg Tab PO 03/29/22 08:59 2.5 mg QAM EMILIA Administration Atenolol 125 mg 02/27/22 09:00 02/27/22 09:50 Atenolol 50 Mg Tablet PO 03/29/22 08:59 125 mg QAM EMILIA Administration Atorvastatin Calcium 20 mg 02/26/22 21:56 02/26/22 23:46 Atorvastatin 20 Mg Tab PO 03/28/22 21:55 20 mg QPM EMILIA Administration Calcitriol 0.25 mcg 02/27/22 09:00 02/27/22 09:50 Calcitriol 0.25 Mcg Capsule PO 03/29/22 08:59 0.25 mcg QAM EMILIA Administration Lactated Ringer's 1,000 mls @ 125 mls/hr 02/26/22 21:56 02/27/22 07:47 Lr IV 02/27/22 13:55 125 mls/hr .Q8H EMILIA Administration Piperacillin Sod/Tazobactam 115 mls @ 28.75 mls/hr 02/27/22 02:00 02/27/22 10:02 Sod 3.375 gm/ Dextrose IV 03/09/22 01:59 28.8 mls/hr Q8H EMILIA Administration Protocol Insulin Aspart 0 units 02/26/22 21:56 02/27/22 12:50 Insulin Aspart Per Unit SC 03/28/22 21:55 Not Given ACHS EMILIA Past Medical History Medical History Arthritis Atrial fibrillation DX'D 7 YRS AGO-ON WARFARIN-F/U DR CEBALLOS Diabetes mellitus, type 2 GERD (gastroesophageal reflux disease) Hyperparathyroidism Hypertension Left knee DJD On anticoagulant therapy Osteoporosis Vitamin D deficiency Past Family History Family History Sister Breast cancer Unknown Cardiac disorder Brother Family history of diabetes mellitus Past Surgical History Surgical History History of cardioversion X 2 History of parathyroid surgery Hx of colonoscopy Hx of hysterectomy Status post total hip replacement, right Social History Smoking Status: Former smoker tobacco type: cigarettes Do You Dip or Chew Tobacco: No Hx Alcohol Use: No Alcohol type: beer and wine alcohol intake frequency: holidays/special occasions only Hx Substance Use: No Physical Exam Vital Signs Last Vital Signs Temp 36.8 C 02/27/22 10:25 Pulse 82 02/27/22 10:25 Resp 18 02/27/22 10:25 BP 101/58 L 02/27/22 10:25 Pulse Ox 92 02/27/22 10:25 Testing Laboratory Results 02/27/22 06:56 02/27/22 06:56 PT 28.4 Seconds (9.0-12.0) H 02/27/22 06:56 INR 2.8 (0.9-1.1) H 02/27/22 06:56 Hemoglobin A1c 6.7 % (4.5-5.6) H 02/27/22 06:56 Urine Color Dark Yellow 02/26/22 23:10 Urine Appearance Turbid (Clear) A 02/26/22 23:10 Urine pH 5.0 (4.5-7.5) 02/26/22 23:10 Ur Specific [place] 1.026 (1.000-1.030) 02/26/22 23:10 Urine Protein 1+ (Negative) H 02/26/22 23:10 Urine Glucose (UA) Negative (Negative) 02/26/22 23:10 Urine Ketones Trace (Negative) H 02/26/22 23:10 Urine Nitrite Positive (Negative) A 02/26/22 23:10 Ur Leukocyte Esterase 3+ (Negative) H 02/26/22 23:10 Urine WBC (Auto) >30 /hpf (0-5) H 02/26/22 23:10 Urine RBC (Auto) 0-4 /hpf (0-4) 02/26/22 23:10 U Hyaline Cast (Auto) 1-5 /lpf (0-5) 02/26/22 23:10 U Epithel Cells (Auto) 20-30 /lpf (0-5) H 02/26/22 23:10 Urine Bacteria (Auto) 1+ (Negative) H 02/26/22 23:10 02/26/22 20:06 Aerobic Blood Culture - Preliminary Blood Gram negative bacilli Anaerobic Blood Culture - Preliminary Gram negative bacilli 02/26/22 20:01 Aerobic Blood Culture - Preliminary Blood Gram negative bacilli Anaerobic Blood Culture - Preliminary Gram negative bacilli 02/27/22 02/27/22 11:37 08:03 POC Glucose 124 H 132 H Echocardiogram Date: 11/05/18 EF: 55-60% LV Function: normal Valvular Disease: + no significant valvular disease
[2022-02-27] MEDS ORDERED: INDOMETHACIN 50 MG SUPP PR ONE (16:38)
--- NOTE | 2022-02-27 17:13 | Gastroenterology Progress Note ---
Date of Service February 27, 2022 Assessment & Plan Admission and Anticipated Discharge Date Admission Date: February 26, 2022 Subjective Patient is scheduled for ERCP this afternoon however anesthesia team was held wi th another emergency hence will have to reschedule the case till tomorrow. Results & Data ([facility]) Vital Signs (Past 12 Hours) Vital Signs Temp Pulse Pulse Resp BP Pulse Ox 02/27/22 15:46 37.1 C 79 20 115/85 91 02/27/22 10:25 36.8 C 82 18 101/58 L 92 02/27/22 10:02 36.8 C 78 18 102/68 91 02/27/22 09:48 36.8 C 78 18 101/62 93 02/27/22 07:28 80 02/27/22 07:05 36.9 C 84 16 110/71 97
[2022-02-27 17:29] LABS: Prothrombin Time 20.8 Seconds (9.0-12.0)
[2022-02-27] MEDS: ATORVASTATIN 20 MG TAB PO SCH (21:42)
[2022-02-28] MEDS: PIPERACILLIN/TAZOBACTAM 3.375 GM in DEXTROSE 5% 100 ML IV SCH ×3 (02:51→18:00)
--- NOTE | 2022-02-28 06:48 | Surgery Progress Note ---
Date of Service February 28, 2022 Assessment & Plan (1) Cholangitis: Plan: For ERCP/laparoscopic cholecystectomy later today Check INR this morning Continue IV antibiotics and n.p.o. Admission and Anticipated Discharge Date Admission Date: February 26, 2022 Results & Data ([facility]) Vital Signs (Past 12 Hours) Vital Signs Temp Pulse Pulse Resp BP Pulse Ox 02/28/22 02:30 37.5 C 98 H 20 120/68 90 02/27/22 23:56 91 H 02/27/22 22:13 37.4 C 95 H 20 100/59 L 90 PG Care Time/CCT Total # of Minutes Spent Total Time Spent with Patient: Total time spent is greater than 50% in coordination of care (as documented) at patient's floor/unit and/or counseling patient: Coding Level of Care Code None Diagnoses Cholangitis K83.09
[2022-02-28] MEDS ORDERED: PHYTONADIONE 5 MG TAB PO STA (09:13)
[2022-02-28] MEDS: ATENOLOL 50 MG TABLET PO SCH (09:31)
[2022-02-28] MEDS: amLODIPine BESYLATE 5 MG TAB PO SCH (09:31)
[2022-02-28] MEDS: CALCITRIOL 0.25 MCG CAPSULE PO SCH (09:32)
[2022-02-28] MEDS: INSULIN ASPART PER UNIT SC SCH ×4 (09:43→21:15)
[2022-02-28 10:37] LABS: INR 1.4 (0.9-1.1); Prothrombin Time 14.8 Seconds (9.0-12.0)
--- NOTE | 2022-02-28 10:43 | Gastroenterology Progress Note ---
Date of Service February 28, 2022 Assessment & Plan (1) Cholangitis: Plan: el LFTs, leukocytosis, choledocholithiasis->colangitis. Plan: Cont Zosyn, Keep NPO ERCP today by Dr. Cedeno. Further recommendations to follow ERCP. Admission and Anticipated Discharge Date Admission Date: February 26, 2022 Supervising Physician Co-Signing Physician Notes I performed a history and physical examination of the patient today, including specifically on physical exam - soft abdomen. I have discussed the patient's management with the advanced practitioner. Please refer to the nurse practitioner's note for the documented findings and plan of care. ERCP today Patient was explained in detail regarding risks, benefits, limitations and alternatives of the above endoscopic procedure. Risks of intravenous sedation used for procedure were also explained. Risks include, but not limited to perforation, bleeding, infection, respiratory distress, cardiac arrest and . Patient is also aware about the possibility of missed lesion. Patient's questions were answered. The patient verbalized understanding the information and agreed to undergo the procedure. Subjective 77 female, admitted 02/26 for pain, chills, weakness. Imaging with choledocholithiasis, had leukocytosis at 14 on arrival. Labs for today: INR 1.4 and given another dose of Vit K 10mg as well. CBC, CMP pending. Patient is scheduled for ERCP this afternoon. Review of Systems Review of Systems: ROS: Gen: +weakness, chills/sweats, Has had some planned weight loss recently Eyes: No eye redness, or pain, no recent vision changes Resp: + mild chronic cough, not recently worsened; No SOB Cardio: + chronic palpitations/irregular beats w A-fib, no chest pain GI: As per HPI, otherwise (-) : Denies pain on urination Skin: No jaundice, itching or new rashes Physical Exam Constitutional: well developed, + ill appearing, + thin and cooperative Eyes: PERRL, conjunctivae normal, anicteric sclerae ENMT: external ear and nose normal, oropharynx normal Neck: trachea midline, no thyromegaly Respiratory: normal respiratory effort, lungs clear to auscultation normal respiratory effort and able to speak in complete sentences; no respiratory distress, no labored breathing, does not use accessory muscles and no cough Cardiovascular: Rate/Rhythm: + irregularly irregular Gastrointestinal (Abdomen): Inspection/Auscultation: abdomen normal to inspection and normal bowel sounds; abdomen not distended and no abdominal edema Percussion/Palpation: + abdomen tender (Mild diffuse adbdominal msk tenderness. No signs of acute abdomen.) and abdomen soft; no guarding and abdomen not rigid Skin: no rashes, warm and dry normal turgor and + pallor Neurologic: PERRL, EOMI, accommodation nl, no face palsy, no dysarthria awake; not confused Psychiatric: A+Ox3, euthymic affect Orientation: alert, oriented x 3 and cooperative Lymphatic: no cervical or axillary lymphadenopathy Results & Data ([facility]) Vital Signs (Past 12 Hours) Vital Signs Temp Pulse Pulse Resp BP Pulse Ox 02/28/22 10:09 82 02/28/22 02:30 37.5 C 98 H 20 120/68 90 02/27/22 23:56 91 H Laboratory Results INR 1.4 Diagnostic Findings MRCP 02/26/22: 1. Motion degraded exam. 2. Cholelithiasis with gallbladder distention. No definite evidence of acute cholecystitis considering the limitations of the study. 3. Choledocholithiasis without appreciable intrahepatic or extrahepatic biliary ductal dila
[2022-02-28 10:45] LABS: Albumin Globulin Ratio 1.3 (0.9-2); Albumin Level 3.1 gm/dl (3.4-5.0); BUN Creatinine Ratio 20.5 (10-20); Bilirubin,Total 4.7 mg/dl (0.2-1.0); Calcium 8.5 mg/dl (8.5-10.1); Creatinine Clr Calc Pharmacy 45.8 ml/min; Est GFR (African American) 46.8 ml/min; Est GFR (Non-African American) 40.4 ml/min; Globulin 2.3 gm/dl (2.5-4.0); Potassium 3.4 mmol/L (3.5-5.1); Total Protein 5.4 gm/dl (6.0-8.3)
[2022-02-28 11:16] LABS: Hematocrit (blood only) 32.9 % (37-47); Hemoglobin 10.6 g/dL (12.0-16.0); Mean Corpuscular Hemoglobin 29.9 pg (25-34); Mean Corpuscular Hgb Conc 32.2 g/dL (32-36); Mean Corpuscular Volume 92.7 fL (80-100); Platelet Count 123 K/uL (130-400); RDW Coefficient of Variation 14.1 % (11.5-14.5); RDW Standard Deviation 47.6 fL (36.4-46.3); Red Blood Count 3.55 M/uL (4.2-5.4); White Blood Count 9.62 K/uL (4.8-10.8)
[2022-02-28 11:17] LABS: Basophils # (auto) 0.01 K/uL (0-0.2); Basophils % (auto) 0.1 %; Eosinophils # (auto) 0.07 K/uL (0-0.5); Eosinophils % (auto) 0.7 %; Immature Granulocytes # (auto) 0.03 K/uL (0.00-0.02); Immature Granulocytes % (auto) 0.3 %; Lymphocytes # (auto) 0.94 K/uL (1.2-3.4); Lymphocytes % (auto) 9.8 %; Monocytes # (auto) 0.79 K/uL (0.11-0.59); Monocytes % (auto) 8.2 %; Neutrophils # (auto) 7.78 K/uL (1.4-6.5); Neutrophils % (auto) 80.9 %; Platelet Estimate Decreased (Normal)
--- NOTE | 2022-02-28 14:34 | History & Physical Bridge Note ---
Date of Service February 28, 2022 History & Physical Bridge Note I have examined the patient, reviewed the History & Physical and in the interval since the performance of the History & Physical I have noted the following changes of clinical significance: no changes noted patient informed of change in surgeon from Dr. Iverson to myself. Addendum to consent signed. risks reviewed, questions answered.
[2022-02-28] MEDS ORDERED: POTASSIUM CHLORIDE CRTAB 20 MEQ TABCR PO ONE (15:01)
[2022-02-28] MEDS ORDERED: ONDANSETRON INJ 2 MG/ML 2 ML VIAL IV PRN (15:38)
[2022-02-28] MEDS ORDERED: ATROPINE SULFATE 0.1 MG/ML 10ML SYR IV PRN (15:38)
[2022-02-28] MEDS ORDERED: fentaNYL citrate 100 MCG/2 ML VIAL IV PRN (15:38)
[2022-02-28] MEDS ORDERED: ePHEDrine sulfate 50 MG/ML AMP IV PRN (15:38)
[2022-02-28] MEDS ORDERED: fentaNYL citrate 100 MCG/2 ML VIAL ONE ×2 (16:08→18:14)
[2022-02-28] MEDS ORDERED: PROPOFOL IV EMULSION 10 MG/ML 20 ML VIAL IV ONE (16:08)
[2022-02-28] MEDS ORDERED: LIDOCAINE 2% 2 ML VIAL/AMP(20MG/ML) INFIL ONE (16:08)
[2022-02-28] MEDS ORDERED: BUPIVACAINE 0.5 % 5 MG/1 ML MPF 30ML VIAL ONE (16:12)
[2022-02-28] MEDS ORDERED: INDOMETHACIN 50 MG SUPP PR ONE (17:29)
--- NOTE | 2022-02-28 17:43 | Operative Report ---
Post Operative Report Pre & Post Diagnosis Operation Date: 02/27/22 11:40 <No data on this case meets the specified criteria> Operation Date: 02/28/22 09:40 Pre-Op Diagnosis: Cholangitis, cholelithiasis with gallbladder distention, choledocholithiasis Post-Op Diagnosis: Cholangitis, cholelithiasis with gallbladder distention, choledocholithiasis I identified the patient and participated in the time-out.: Yes Procedure Operation Date: 02/27/22 11:40 <No data on this case meets the specified criteria> Operation Date: 02/28/22 09:40 Actual Procedures p Laparoscopic Cholecystectomy - Harpal Baires DO, FACS s Endoscopic Retrograde Cholangiopancreato - Bindu Cedeno MD Surgeon Bindu Cedeno MD [employer] Manager None Estimated Blood Loss 0 Findings See Below (CBD stone and pus removed, CBD stent placed) Specimens None Description of Procedure ERCP I attest to the content of the Intraoperative Record and any orders documented therein. Any exceptions are noted below.
--- NOTE | 2022-02-28 17:49 | GI REPORT ---
Patient Name: Carol Keller Procedure Date: 02/28/2022 5:08 PM Date of : 1945 Admit Type: Inpatient Age: 77 Gender: Female Attending MD: Bindu Cedeno MD Procedure: ERCP Providers: Bindu Cedeno MD Referring MD: Radha Ordonez Do, Harpal Baires Do Indications: For therapy of bile duct stone(s) Medicines: General Anesthesia Complications: No immediate complications. Estimated Blood Loss: Estimated blood loss: none. Procedure: Pre-Anesthesia Assessment: - Prior to the procedure, a History and Physical was performed, and patient medications, allergies and sensitivities were reviewed. The patient's tolerance of previous anesthesia was reviewed. - The risks and benefits of the procedure and the sedation options and risks were discussed with the patient. All questions were answered and informed consent was obtained. - Patient identification and proposed procedure were verified prior to the procedure by the physician and the nurse. The procedure was verified in the procedure room. - Pre-procedure physical examination revealed no contraindications to sedation. After obtaining informed consent, the scope was passed under direct vision. Throughout the procedure, the patient's blood pressure, pulse, and oxygen saturations were monitored continuously. The Duodenoscope was introduced through the mouth, and advanced to the duodenum and used to inject contrast into the bile duct. The ERCP was accomplished without difficulty. The patient tolerated the procedure well. Findings: The director of community services film was normal. The esophagus was successfully intubated under direct vision. The scope was advanced to a normal major papilla in the descending duodenum without detailed examination of the pharynx, larynx and associated structures, and upper GI tract. The upper GI tract was grossly normal. The major papilla was on the rim of a diverticulum. A 0.025 inch x 270 cm angled Visiglide wire was passed into the biliary tree. The Fusion OMNI sphincterotome was passed over the guidewire and the bile duct was then deeply cannulated. Contrast was injected. I personally interpreted the bile duct images. Ductal flow of contrast was adequate. Image quality was adequate. Contrast extended to the main bile duct. Opacification of the entire biliary tree was successful. The maximum diameter of the ducts was 8 mm. Biliary sphincterotomy was made with a monofilament traction (standard) sphincterotome using ERBE electrocautery. There was no post-sphincterotomy bleeding. The biliary tree was swept with a 12 mm balloon starting at the bifurcation. One stone was removed. No stones remained. Pus was swept from the duct. One 10 Fr by 7 cm plastic biliary stent with a single external flap and a single internal flap was placed into the common bile duct. Bile flowed through the stent. The stent was in good position. Indomethacin 100 mg was given via suppository to decrease the risk of post-ERCP pancreatitis (PEP). Impression: - Choledocholithiasis was found. Complete removal was accomplished by biliary sphincterotomy and balloon extraction. - The biliary tree was swept and pus was found. - One plastic biliary stent was placed into the common bile duct. Recommendation: - [facility]. - Repeat ERCP in 8 weeks to remove stent. - Proceed with Moody fatimah. Bindu Cedeno MD 02/28/2022 5:48:53 PM This report has been signed electronically. Note Initiated On: 02/28/2022 5:08 PM Number of Addenda: 0 I attest to the content of the Intraoperative Record and orders documented therein, exceptions below {[id number]}
[2022-02-28] MEDS ORDERED: NEOSTIGMINE METHYLSULFATE 1 MG/ML 10ML VIAL ONE (17:57)
[2022-02-28] MEDS ORDERED: GLYCOPYRROLATE 0.2 MG/ML VIAL ONE (17:57)
--- NOTE | 2022-02-28 18:03 | Fluoroscopy Report ---
[place] ERCP biliary ductal HISTORY: 77 years-old Female W/LAP MARISSA status post cholecystectomy. COMPARISON: MRCP 02/26/2022 TECHNIQUE: 7 spot fluoroscopic images of the abdominal right upper quadrant were obtained utilizing 2 minutes and 6.3 seconds of fluoroscopy time FINDINGS: Endoscope is noted within the duodenum. Cannulation of the common bile duct is noted with retrograde injection of contrast. Balloon sweep of the common bile duct. Cystic duct is opacified. Accumulation of contrast suzy hepatis distribution may be within a gallbladder or gallbladder remnant. Subsequent images demonstrate placement of a common bile duct stent which appears to be in satisfactory positio adrián. IMPRESSION: Fluoroscopic assistance as above. ACT 112: Negative or not required by law. The above report was generated using voice recognition software. It may contain grammatical, syntax o r spelling errors. Electronically signed by: Mukesh De León M.D. 02/28/2022 6:01 PM
--- NOTE | 2022-02-28 18:16 | Hospitalist Progress Note ---
Date of Service February 28, 2022 Assessment & Plan (1) Sepsis: Plan: Early Sepsis, POA. (2) Gram-negative bacteremia: Plan: cont Zosyn, source control now achieved. (3) Cholelithiasis: Plan: -On admission Total bili 3.2, AST 632, ALT 388, alk phos 168, lipase 35, -RUQ US showing hepatic steatosis, cholelithiasis, no acute cholecystitis -MRCP revealed choledocholithiasis -consult GI, planned for ERCP on 02/27, however, INR too high -blood cultures positive for GNB -continue covering with Zosyn -will plan to restart warfarin once ok with proceduralists. -Last dose of warfarin was last evening at 5 mg, will hold for now prior to possible procedure, checking INR now (4) UTI (urinary tract infection): Plan: UA appeared positive for infection however, patient was without UTI symptoms. Covered on the zosyn that is covering for GI infection. Culture results are negative. (5) Elevated transaminase level: Plan: 2/2 biliary obstruction. Improved and expect to continue to improve s/p ERCP with stent placement into CBD today. (6) Hypokalemia: Plan: improved. 3.4 today so ordered replacement. Pt has been NPO for the better part of two days awaiting procedures. (7) Atrial fibrillation: Plan: -Rate controlled in the 90s at bedside -hold coumadin post op (8) Diabetes mellitus, type 2: Plan: -Last A1c was 6.7 on 11/21/2021, will repeat with a.m. labs -Holding metformin -ISS with Accu-Cheks [facility] -Patient is currently n.p.o. (9) Hypertension: Plan: -May continue losartan 50 mg every morning, atenolol 125 mg every morning, amlodipine 2.5 mg daily, hold HCTZ with BP of 110s over 50s, administering fluids as above (10) SJ on CPAP: Plan: cont cap qHS (11) DVT prophylaxis: Plan: DVT PPx - teds, scds, holding Coumadin as above CODE: Full code Dispo: From home, likely to remain in the hospital x 1-2 days post op. I contacted her son by phone to update him post op that she was doing well. There was no answer. Will try again later. Radha Ordonez DO [facility]ist Admission and Anticipated Discharge Date Admission Date: February 26, 2022 Subjective 77 yo F with possible developing sepsis 2/2 biliary source. she is s/p ERCP today followed by lap marissa biliary stent in place she is recovering from her procedures in the PACU denies any issues breathing normally denies pain in her abdomen. Review of Systems Review of Systems: All systems were reviewed and negative except as indicate above. Physical Exam Physical Exam: CONSTITUTIONAL: obese, vitals as above, generally well- appearing, NAD EYES: normal conjunctivae, no scleral icterus, ENT: external ear and nose normal, MMM NECK: trachea midline RESPIRATORY: clear to auscultation bilaterally, no crackles, rales or wheezes, normal respiratory effort CARDIOVASCULAR: regular rate and rhythm, S1 and 2 heard without murmurs, gallops or rubs, no JVD, no peripheral edema CHEST: inspection of chest was normal GASTROINTESTINAL: soft, nontender, ND, multiple closed laparoscopic sites. MUSCULOSKELETAL: generalized weakness, just coming out of anesthesia. SKIN: warm and dry NEUROLOGIC: CN 2-12 grossly intact, no sensory deficit, normal cognition, normal speech, no tremor, no gross focal deficit. PSYCHIATRIC: alert cooperative and oriented to person, place and time. Results & Data Results & Data ([facility]) Vital Signs (Past 12 Hours) Vital Signs Temp Pulse Pulse Resp BP BP Pulse Ox 02/28/22 15:33 37.0 C 80 22 140/74 93 02/28/22 15:10 36.6 C 92 H 16 107/62 95 02/28/22 11:45 37.0 C 69 16 110/68 96 02/28/22 10:09 82 Laboratory Results Short CBC 02/28/22 Range/Units 10:05 WBC 9.62 (4.8-10.8) K/uL Hgb 10.6 L (12.0-16.0) g/dL Hct 32.9 L (37-47) % Plt Count 123 L (130-400) K/uL BMP 02/28/22 10:05 Sodium 139 Potassium 3.4 L Chloride 102 Carbon Dioxide 33 H BUN 26 H Creatinine 1.27 H Glucose 107 H Calcium 8.5 Liver Function 02/28/22 Range/Units 10:05 Total Bilirubin 4.7 H (0.2-1.0) mg/dl AST 210 H (13-39) U/L ALT 278 H (7-52) U/L Alkaline Phosphatase 118 H (34-104) U/L Albumin 3.1 L (3.4-5.0) gm/dl Diagnostic Findings Endo Retro Cholangiopancreatogram 02/28/22 00:00 [place] ERCP biliary ductal HISTORY: 77 years-old Female W/LAP MARISSA status post cholecystectomy. COMPARISON: MRCP 02/26/2022 TECHNIQUE: 7 spot fluoroscopic images of the abdominal right upper quadrant were obtained utilizing 2 minutes and 6.3 seconds of fluoroscopy time FINDINGS: Endoscope is noted within the duodenum. Cannulation of the common bile duct is noted with retrograde injection of contrast. Balloon sweep of the common bile duct. Cystic duct is opacified. Accumulation of contrast suzy hepatis distribution may be within a gallbladder or gallbladder remnant. Subsequent images demonstrate placement of a common bile duct stent which appears to be in satisfactory positioning. IMPRESSION: Fluoroscopic assistance as above. ACT 112: Negative or not required by law. The above report was generated using voice recognition software. It may contain grammatical, syntax or spelling errors. Electronically signed by: Mukesh De León M.D. 02/28/2022 6:01 PM Medications Administered Current Inpatient Medications Acetaminophen (Acetaminophen 325 Mg Tab) 650 mg PO Q4H PRN PRN Reason: Moderate Pain Stop: 03/28/22 21:55 Amlodipine Besylate (Amlodipine Besylate 5 Mg Tab) 2.5 mg PO QAM [facility] Stop: 03/29/22 08:59 Last Admin: 02/28/22 09:31 Dose: 2.5 mg Documented by: Atenolol (Atenolol 50 Mg Tablet) 125 mg PO QAM [facility] Stop: 03/29/22 08:59 Last Admin: 02/28/22 09:31 Dose: 125 mg Documented by: Atorvastatin Calcium (Atorvastatin 20 Mg Tab) 20 mg PO QPM [facility] Stop: 03/28/22 21:55 Last Admin: 02/27/22 21:42 Dose: 20 mg Documented by: Atropine Sulfate (Atropine Sulfate 0.1 Mg/Ml 10ml Syr) 0.5 mg IV Q1M PRN PRN Reason: PACU Use-HR<40 &/or Bradycardi Stop: 02/28/22 23:38 Calcitriol (Calcitriol 0.25 Mcg Capsule) 0.25 mcg PO QAM [facility] Stop: 03/29/22 08:59 Last Admin: 02/28/22 09:32 Dose: 0.25 mcg Documented by: Dextrose (Dextrose 50% 50 Ml Syringe) 25 - 50 ml IV UD PRN; Protocol PRN Reason: Hypoglycemia Protocol Stop: 03/28/22 21:55 Ephedrine Sulfate (Ephedrine Sulfate 50 Mg/Ml Amp) 5 mg IV Q5M PRN PRN Reason: PACU Use Only-SBP<90 mmHg Stop: 02/28/22 23:38 Fentanyl Citrate (Fentanyl Citrate 100 Mcg/2 Ml Vial) 50 mcg IV Q5M PRN PRN Reason: PACU Use Only-Pain Stop: 02/28/22 23:38 Glucagon (Glucagon For Inj 1 Mg Vial) 1 mg SQ UD PRN; Protocol PRN Reason: Hypoglycemia Protocol Stop: 03/28/22 21:55 Glucose (Glucose 10 Tabs/Tube) 4 - 8 tabs PO UD PRN; Protocol PRN Reason: Hypoglycemia Protocol Stop: 03/28/22 21:55 Glucose (Glucose 40% Gel 15 Gm Tube) 15 - 30 gm PO UD PRN; Protocol PRN Reason: Hypoglycemia Protocol Stop: 03/28/22 21:55 Piperacillin Sod/Tazobactam (Sod 3.375 gm/ Dextrose) 115 mls @ 28.75 mls/hr IV Q8H [facility]IL[facility]; Protocol Stop: 03/09/22 01:59 Last Infusion: 02/28/22 13:35 Dose: Infused Documented by: Insulin Aspart (Insulin Aspart Per Unit) 0 units SC ACHS [facility] Stop: 03/28/22 21:55 Last Admin: 02/28/22 11:52 Dose: Not Given Documented by: Losartan Potassium (Losartan Potassium 50 Mg Tab) 50 mg PO QAM [facility] Stop: 03/29/22 08:59 Miscellaneous (Carbohydrates For Hypoglycemia ) 15 - 30 gm PO UD PRN PRN Reason: Hypoglycemia Protocol Stop: 03/28/22 21:55 Ondansetron HCl (Ondansetron Inj 2 Mg/Ml 2 Ml Vial) 4 mg IV Q4H PRN PRN Reason: Nausea And Vomiting Stop: 03/28/22 21:55 Ondansetron HCl (Ondansetron Inj 2 Mg/Ml 2 Ml Vial) 4 mg IV ONCE PRN PRN Reason: PACU Use Only-Nausea/Vomiting Stop: 02/28/22 23:38 (1) Cholelithiasis Biliary obstruction: with biliary obstruction Cholecystitis presence: without cholecystitis Cholelithiasis location: gallbladder and bile duct Qualified Code(s): K80.71 - Calculus of gallbladder and bile duct without cholecystitis with obstruction
--- NOTE | 2022-02-28 18:41 | Operative Report ---
PG Post Operative Report Pre & Post Diagnosis Operation Date: 02/28/22 09:40 Pre-Op Diagnosis: Cholangitis, cholelithiasis with gallbladder distention, choledocholithiasis Post-Op Diagnosis: Cholangitis, cholelithiasis with gallbladder distention, choledocholithiasis I identified the patient and participated in the time-out.: Yes Procedure Operation Date: 02/28/22 09:40 Actual Procedures p Laparoscopic Cholecystectomy - Harpal Baires DO, FACS s Endoscopic Retrograde Cholangiopancreato - Bindu Cedeno MD Surgeon Harpal Baires DO, NATAN Corporate Webmaster None Estimated Blood Loss 10 Findings Consistent with Post-Op Diagnosis (CBD stone and pus removed, CBD stent placed) ERCP performed by GI, please see their notes for details. Acute on chronic cholecystitis. Critical view of safety obtained, cystic duct and artery doubly clipped and divided. Good hemostasis. Specimens Gallbladder Anesthesia Type General Complications none Disposition Accompanied Patient To Recovery: No Disposition: Recovery Room Indications 77-year-old female admitted with choledocholithiasis and cholangitis, GI to perform ERCP, plan for laparoscopic cholecystectomy under same anesthetic. The risks of the procedure were discussed, all questions were answered, and the patient agreed to proceed with surgery as planned. Description of Procedure The patient was properly identified, consented, and taken to the operating room. She underwent an ERCP by GI, please see their procedure note for details. She was then placed in the supine position. General endotracheal anesthesia was induced. SCDs and a safety belt were placed. Preoperative antibiotics were administered. The patient's abdomen was prepped and draped in the standard sterile fashion. A surgical timeout was performed and all parties were in agreement that this was the correct patient and procedure to be performed and we continued as planned. An incision was made superior and to the left of the umbilicus overlying the rectus muscle and the Veress needle was inserted. Saline drop test confirmed entry into the peritoneum. The abdomen was insufflated with carbon dioxide whic h the patient tolerated without incident. The abdomen was then entered using the Optiview technique and a 5 mm trocar. The laparoscope was inserted and no damage from initial trocar or Veress needle placement was noted, no gross abnormalities were noted within the 4 quadrants of the abdomen. An 11 mm port was placed in the subxiphoid position and two 5 mm ports were then placed in the right subcostal position. The patient was placed in reverse Trendelenburg position and rotated towards the left. The gallbladder was moderately inflamed with acute on chronic cholecystitis. Some omental adhesions were taken down with blunt dissection and cautery. The dome of the gallbladder was retracted towards the left upper quadrant and the infundibulum was retracted toward the right lower quadrant revealing Calot's triangle. Peritoneal attachments were taken down with electrocautery and blunt dissection. The cystic duct and artery were circumferentially dissected. A window of safety was obtained showing the cystic duct entering the gallbladder with no aberrant structures noted. The cystic duct and artery were doubly clipped and divided. The gallbladder was then lifted off the gallbladder fossa with electrocautery. The gallbladder was placed in an Endo Catch bag and removed through the subxiphoid port site. The right upper quadrant was irrigated and hemostasis was found to be good. 5 mm trochars were removed under direct visualization and the abdomen was allowed to collapse. The subxiphoid port site fascia was closed with 0 Vicryl suture utilizing the Stephan-Joshua device prior to removal of the ports. The wound was irrigated, and the skin of all ports was closed with 4-0 Monocryl subcuticular sutures. Dermabond was placed over the wounds. The patient was extubated in the operating room and taken to the PACU where she recovered without apparent incident. All sponge, instrument and needle counts were correct at the conclusion of the procedure. The patient tolerated the procedure well. I attest to the content of the Intraoperative Record and any orders documented therein. Any exceptions are noted below.
--- NOTE | 2022-02-28 19:35 | Anesthesiology Progress Note ---
Date of Service February 28, 2022 Anesthesia Post Procedure Vital Signs Vital Signs: Temp Pulse Pulse Pulse Resp BP BP 02/28/22 18:59 98.8 F 86 15 108/66 02/28/22 15:33 98.6 F 80 22 140/74 02/28/22 15:10 97.9 F 92 H 16 107/62 02/28/22 11:45 98.6 F 69 16 110/68 02/28/22 10:09 82 02/28/22 02:30 99.5 F 98 H 20 120/68 02/27/22 23:56 91 H 02/27/22 22:13 99.3 F 95 H 20 100/59 L Pulse Ox 02/28/22 18:59 94 02/28/22 15:33 93 02/28/22 15:10 95 02/28/22 11:45 96 02/28/22 10:09 02/28/22 02:30 90 02/27/22 23:56 02/27/22 22:13 90 Pain Intensity Abdomen: Pain Intensity: 1 Transfer of Care Handoff Completed per policy Notes Mental Status: alert / awake / arousable and participated in evaluation Patient Amnestic to Procedure: Yes Nausea / Vomiting: adequately controlled Pain: adequately controlled Airway Patency, RR, SpO2: stable & adequate BP & HR: stable & adequate Hydration State: stable & adequate Anesthetic Complications: no major complications apparent and Pt Satisfied with anesthetic care
[2022-02-28] MEDS ORDERED: ACETAMINOPHEN 325 MG TAB PO PRN (20:18)
[2022-02-28] MEDS ORDERED: MoRPHine SULFATE 4 MG/ML 1 ML CARP\\VIAL IV PRN (20:18)
[2022-02-28] MEDS ORDERED: MoRPHine SULFATE 2 MG/ML CARP IV PRN (20:18)
[2022-02-28] MEDS ORDERED: oxyCODONE HCL IR 5 MG TAB (IMMEDIATE RELEASE) PO PRN ×2 (20:18)
[2022-02-28] MEDS: ATORVASTATIN 20 MG TAB PO SCH (20:23)
[2022-02-28] MEDS: LACTATED RINGER'S 1,000 ML IV SCH (20:35)
[2022-03-01] MEDS: PIPERACILLIN/TAZOBACTAM 3.375 GM in DEXTROSE 5% 100 ML IV SCH ×3 (02:35→14:01)
[2022-03-01 06:30] LABS: Hematocrit (blood only) 33.8 % (37-47); Mean Corpuscular Hemoglobin 29.9 pg (25-34); Mean Corpuscular Hgb Conc 32.5 g/dL (32-36); Mean Corpuscular Volume 91.8 fL (80-100); Mean Platelet Volume 12.8 fL (7.4-10.4); Platelet Count 127 K/uL (130-400); RDW Coefficient of Variation 14.1 % (11.5-14.5); RDW Standard Deviation 47.4 fL (36.4-46.3); Red Blood Count 3.68 M/uL (4.2-5.4); White Blood Count 9.69 K/uL (4.8-10.8)
[2022-03-01 06:34] LABS: INR 1.3 (0.9-1.1); Prothrombin Time 13.2 Seconds (9.0-12.0)
[2022-03-01 06:53] LABS: Basophils # (auto) 0.01 K/uL (0-0.2); Basophils % (auto) 0.1 %; Immature Granulocytes # (auto) 0.04 K/uL (0.00-0.02); Immature Granulocytes % (auto) 0.4 %; Lymphocytes # (auto) 0.62 K/uL (1.2-3.4); Lymphocytes % (auto) 6.4 %; Monocytes # (auto) 0.31 K/uL (0.11-0.59); Monocytes % (auto) 3.2 %; Neutrophils # (auto) 8.71 K/uL (1.4-6.5); Neutrophils % (auto) 89.9 %
--- NOTE | 2022-03-01 06:56 | Electrocardiogram Report ---
Test Reason : Blood Pressure : / mmHG Vent. Rate : 086 BPM Atrial Rate : 066 BPM P-R Int : 000 ms QRS Dur : 090 ms QT Int : 336 ms P-R-T Axes : 000 023 -28 degrees QTc Int : 402 ms Atrial fibrillation Low voltage QRS Cannot rule out Anterior infarct , age undetermined Nonspecific T wave abnormality Abnormal ECG When compared with ECG of 26-FEB-2013 08:10, Atrial fibrillation has replaced Sinus rhythm Vent. rate has increased BY 28 BPM Nonspecific T wave abnormality, worse in Inferior leads Confirmed by Von Ceballos ([id number]) on 03/01/2022 6:55:54 AM Referred By: REFERRED SELF Confirmed By:Von Ceballos
[2022-03-01 07:06] LABS: Albumin Globulin Ratio 1.2 (0.9-2); Albumin Level 3.1 gm/dl (3.4-5.0); BUN Creatinine Ratio 23.3 (10-20); Bilirubin Direct 0.9 mg/dl (0-0.2); Bilirubin,Total 2.3 mg/dl (0.2-1.0); Calcium 8.1 mg/dl (8.5-10.1); Creatinine Clr Calc Pharmacy 57.1 ml/min; Est GFR (African American) 60.3 ml/min; Globulin 2.5 gm/dl (2.5-4.0); Magnesium 0.9 mg/dl (1.7-2.4); Potassium 3.8 mmol/L (3.5-5.1); Total Protein 5.6 gm/dl (6.0-8.3)
[2022-03-01] MEDS: MAGNESIUM SULFATE / D5W 1 GM/100 ML BAG IV SCH ×4 (07:38→14:40)
[2022-03-01] MEDS: CALCITRIOL 0.25 MCG CAPSULE PO SCH (07:40)
[2022-03-01] MEDS: ATENOLOL 50 MG TABLET PO SCH (07:40)
[2022-03-01] MEDS: amLODIPine BESYLATE 5 MG TAB PO SCH (07:40)
[2022-03-01] MEDS: INSULIN ASPART PER UNIT SC SCH ×4 (08:30→21:36)
[2022-03-01] MEDS ORDERED: hydroCHLOROthiazide 25 MG TAB PO SCH (09:00)
--- NOTE | 2022-03-01 09:18 | Gastroenterology Progress Note ---
Date of Service March 01, 2022 Assessment & Plan (1) Cholangitis: Plan: ERCP in 8wks for removal of CBD stent. Our office will contact the pt to arrange. From GI perspective, no diet limitations, Antibiotics x total 7 days; anticoagulation could be restarted in 2 more days - but surgery may have other preferences. GI will sign off. Please notify us if new/worsening GI issues. Admission and Anticipated Discharge Date Admission Date: February 26, 2022 Supervising Physician Co-Signing Physician Notes I performed a history and physical examination of the patient today, including specifically on physical exam - soft abdomen. I have discussed the patient's management with the advanced practitioner. Please refer to the nurse practitioner's note for the documented findings and plan of care. Subjective 77, f, admitted 02/28 w el LFTs, leukocytosis, choledocholithiasis, ERCP w sphincterotomy and removal of bile duct stone with ballon. Also lLap choley yesterday. LFTs improved: T Bili 4.7->2.3, D Bili 1.6-> 0.9, ALT 210->148. Alk Phos stable at 124. Doing well today. Minimal abd bloating discomfort, no sign abdominal pain. Tolerating clear liquids w/o pain, N/V. Review of Systems Review of Systems: ROS: Gen: No weakness, chills or sweats. Has had some planned weight loss recently Eyes: No eye redness, or pain, no recent vision changes Resp: No cough today. No SOB Cardio: + chronic palpitations/irregular beats w A-fib, no chest pain GI: As per HPI, otherwise (-) : Denies pain on urination Skin: No jaundice, itching or new rashes Physical Exam Constitutional: well developed and cooperative Eyes: PERRL, conjunctivae normal, anicteric sclerae ENMT: external ear and nose normal, oropharynx normal Neck: trachea midline, no thyromegaly Respiratory: normal respiratory effort, lungs clear to auscultation normal respiratory effort and able to speak in complete sentences; no respiratory distress, no labored breathing, does not use accessory muscles and no cough Cardiovascular: Rate/Rhythm: + irregularly irregular Gastrointestinal (Abdomen): Inspection/Auscultation: abdomen normal to inspection and normal bowel sounds; abdomen not distended and no abdominal edema Percussion/Palpation: + abdomen tender (Minimal diffuse adbdominal tenderness. No signs of acute abdomen.) and abdomen soft; no guarding and abdomen not rigid lap incisions w/o bleeding, dc or redness Skin: no rashes, warm and dry normal turgor Neurologic: PERRL, EOMI, accommodation nl, no face palsy, no dysarthria awake; not confused Psychiatric: A+Ox3, euthymic affect Lymphatic: no cervical or axillary lymphadenopathy Results & Data ([facility]) Vital Signs (Past 12 Hours) Vital Signs Temp Pulse Resp BP Pulse Ox 03/01/22 07:56 36.4 C L 86 18 113/76 93 03/01/22 03:27 36.5 C 86 18 116/73 93 02/28/22 23:48 37 C 85 18 105/64 96 02/28/22 23:25 37.2 C 83 18 94 02/28/22 22:43 36.4 C L 79 18 110/74 91 02/28/22 21:39 36.9 C 83 16 120/76 94 Laboratory Results See HPI for LFTs, WBC 9, Hb 11, Hct 33, Plts 127, Na 139, K 3.8, Cl 101, CO2 24, BUN 24, Cr 1.03, glucose 157. Diagnostic Findings ERCP 02/28/22: - Choledocholithiasis was found. Complete removal was accomplished by biliary sphincterotomy and balloon extraction. - The biliary tree was swept and pus was found. - One plastic biliary stent was placed into the common bile duct.
--- NOTE | 2022-03-01 09:30 | Surgery Progress Note ---
Date of Service March 01, 2022 Assessment & Plan (1) Cholangitis: Plan: POD#[address] Baires and ERCP with GI WBC 9, LFT's downtrending Tb: 2.3 (4.7), INR 1.3 Vitals are stable, pt afebrile Incisions c/d/i Okay from our standpoint to advance diet as tolerates May resume coumadin this evening from our standpoint ID consult pending for bacteremia Dispo plans per medicine. F/u with Dr. Baires in clinic within 1-2 weeks and with GI as outpt for stent removal Admission and Anticipated Discharge Date Admission Date: February 26, 2022 Supervising Physician Co-Signing Physician Notes Patient seen and examined, labs reviewed, agree with above. POD #1 ERCP with stent placement and duct clearance, and laparoscopic cholecystectomy for choledocholithiasis with cholangitis. Feeling well, minimal soreness. Tolerating liquids. On exam she is afebrile stable vitals, appears less jaundiced. Abdomen soft, probably tender to palpation, incisions without infection. Labs with downtrending liver enzymes and bilirubin. Blood cultures growing out gram-negative rods. From surgery perspective may increase diet as tolerated, may restart Coumadin, but will check with GI first. Will likely need IV antibiotics given bacteremia, leave this to the primary team. Surgery will follow, Dr. Gupta covering over the weekend. Call with questions or concerns. Subjective Patient is feeling well. Has some gas pains, but are manageable. Tolerating clears. No n/v. Physical Exam Physical Exam: awake/alert, nad Gastrointestinal (Abdomen): Inspection/Auscultation: + abdominal surgical incision (c/d/i with skin glue, no signs of infection); abdomen not distended Percussion/Palpation: + abdomen tender (mild expected loren incisional discomfort) and abdomen soft Results & Data ([facility]) Vital Signs (Past 12 Hours) Vital Signs Temp Pulse Resp BP Pulse Ox 03/01/22 07:56 36.4 C L 86 18 113/76 93 03/01/22 03:27 36.5 C 86 18 116/73 93 02/28/22 23:48 37 C 85 18 105/64 96 02/28/22 23:25 37.2 C 83 18 94 02/28/22 22:43 36.4 C L 79 18 110/74 91 06/23/22 21:39 36.9 C 83 16 120/76 94 PG Care Time/CCT Total # of Minutes Spent Total Time Spent with Patient: Total time spent is greater than 50% in coordination of care (as documented) at patient's floor/unit and/or counseling patient: Coding Level of Care Code None Diagnoses Cholangitis K83.09
[2022-03-01] MEDS ORDERED: Nursing to Pharmacy Communication SCH (10:00)
[2022-03-01] MEDS ORDERED: WARFARIN SOD 5 MG TAB PO SCH (16:00)
[2022-03-01] MEDS: LACTATED RINGER'S 1,000 ML IV SCH (17:36)
--- NOTE | 2022-03-01 19:14 | Hospitalist Progress Note ---
Date of Service March 01, 2022 Assessment & Plan (1) Sepsis: Plan: Early Sepsis, POA. Secondary to choledocholithiasis. Resuscitated. Plan per below. (2) Ascending cholangitis: Plan: Ascending cholangitis with evidence of cholelithiasis, continue antibiotic regimen outlined below. Clinically improved after source control (3) Gram-negative bacteremia: Plan: E. coli bacteremia secondary to ascending cholangitis with stones. Status post laparoscopic cholecystectomy on 02/28. Status post ERCP on with biliary sphincterotomy and biliary stent placement with stone removal. Consulted ID who recommend switching to Unasyn 1.5 g IV every 6 hours and when ready for discharge switching to Augmentin 875 twice daily to complete a total 10 to 14 days of antibiotic therapy from 02/27 (4) Postoperative hypoxia: Plan: No evidence of pneumonia, wean as tolerated. Will consider chest x-ray if still hypoxic in a.m. Notably patient has no respiratory distress or respiratory symptoms at this time. (5) Elevated transaminase level: Plan: 2/2 biliary obstruction. Improved and expect to continue to improve s/p ERCP with stent placement into CBD (6) UTI (urinary tract infection): Plan: UA appeared positive for infection however, patient was without UTI symptoms. Covered on the zosyn that is covering for GI infection. Culture results are negative so UTI ruled out. (7) Atrial fibrillation: Plan: -Rate controlled in the 90s at bedside -Holding Coumadin with recent lap fatimah. We will plan to restart Coumadin this evening Continue daily INR. Monitor for bleeding. (8) Diabetes mellitus, type 2: Plan: -Last A1c was 6.7 on 11/21/2021, will repeat with a.m. labs -Holding metformin -insulin coverage (9) Hypertension: Plan: -May continue losartan 50 mg every morning, atenolol 125 mg every morning, amlodipine 2.5 mg daily, hold HCTZ. Blood pressure is 99/63. Hold HCTZ and losartan. Hold amlodipine. Continue atenolol (10) SJ on CPAP: Plan: CPAP qHS (11) DVT prophylaxis: Plan: DVT PPx - teds, scds, starting Coumadin CODE: Full code Dispo: From home, likely to remain in the hospital x 1-2 days post op. Radha Ordonez DO [facility] Hospitalist Admission and Anticipated Discharge Date Admission Date: February 26, 2022 Subjective 77 yo F with possible developing sepsis 2/2 biliary source. she is s/p ERCP today followed by lap fatimah biliary stent in place Recovering well and no pain Tolerating p.o. Afebrile Transaminases are decreasing Some postoperative hypoxia noted. Review of Systems Review of Systems: All systems were reviewed and negative except as indicate above. Physical Exam Physical Exam: CONSTITUTIONAL: obese, vitals as above, generally well- appearing, NAD EYES: normal conjunctivae, no scleral icterus, ENT: external ear and nose normal, MMM NECK: trachea midline RESPIRATORY: clear to auscultation bilaterally, no crackles, rales or wheezes, normal respiratory effort CARDIOVASCULAR: regular rate and rhythm, S1 and 2 heard without murmurs, gallops or rubs, no JVD, no peripheral edema CHEST: inspection of chest was normal GASTROINTESTINAL: soft, nontender, ND, MUSCULOSKELETAL: 5/5 strength throughout, no gross focal deficits. SKIN: warm and dry NEUROLOGIC: CN 2-12 grossly intact, no sensory deficit, normal cognition, normal speech, no tremor, no gross focal deficit. PSYCHIATRIC: alert cooperative and oriented to person, place and time. Results & Data Results & Data ([facility]) Vital Signs (Past 12 Hours) Vital Signs Temp Pulse Resp BP Pulse Ox Pulse Ox 03/01/22 15:04 36.4 C L 79 19 99/63 L 89 L 03/01/22 14:25 92 03/01/22 07:56 36.4 C L 86 18 113/76 93 Laboratory Results Short CBC 03/01/22 Range/Units 05:32 WBC 9.69 (4.8-10.8) K/uL Hgb 11.0 L (12.0-16.0) g/dL Hct 33.8 L (37-47) % Plt Count 127 L (130-400) K/uL BMP 03/01/22 05:32 Sodium 139 Potassium 3.8 Chloride 101 Carbon Dioxide 29 BUN 24 H Creatinine 1.03 Glucose 157 H Calcium 8.1 L Liver Function 03/01/22 Range/Units 05:32 Total Bilirubin 2.3 H D (0.2-1.0) mg/dl Direct Bilirubin 0.9 H (0-0.2) mg/dl AST 148 H (13-39) U/L ALT 227 H (7-52) U/L Alkaline Phosphatase 124 H (34-104) U/L Albumin 3.1 L (3.4-5.0) gm/dl Medications Administered Current Inpatient Medications Acetaminophen (Acetaminophen 325 Mg Tab) 650 mg PO Q4H PRN PRN Reason: Moderate Pain Stop: 03/28/22 21:55 Acetaminophen (Acetaminophen 325 Mg Tab) 650 mg PO Q4H PRN PRN Reason: mild pain Stop: 03/30/22 20:17 Amlodipine Besylate (Amlodipine Besylate 5 Mg Tab) 2.5 mg PO QAM [facility] Stop: 03/29/22 08:59 Last Admin: 03/01/22 07:40 Dose: 2.5 mg Documented by: Atenolol (Atenolol 50 Mg Tablet) 125 mg PO QAM [facility] Stop: 03/29/22 08:59 Last Admin: 03/01/22 07:40 Dose: 125 mg Documented by: Atorvastatin Calcium (Atorvastatin 20 Mg Tab) 20 mg PO QPM [facility] Stop: 03/28/22 21:55 Last Admin: 02/28/22 20:23 Dose: 20 mg Documented by: Calcitriol (Calcitriol 0.25 Mcg Capsule) 0.25 mcg PO QAM [facility] Stop: 03/29/22 08:59 Last Admin: 03/01/22 07:40 Dose: 0.25 mcg Documented by: Dextrose (Dextrose 50% 50 Ml Syringe) 25 - 50 ml IV UD PRN; Protocol PRN Reason: Hypoglycemia Protocol Stop: 03/28/22 21:55 Glucagon (Glucagon For Inj 1 Mg Vial) 1 mg SQ UD PRN; Protocol PRN Reason: Hypoglycemia Protocol Stop: 03/28/22 21:55 Glucose (Glucose 10 Tabs/Tube) 4 - 8 tabs PO UD PRN; Protocol PRN Reason: Hypoglycemia Protocol Stop: 03/28/22 21:55 Glucose (Glucose 40% Gel 15 Gm Tube) 15 - 30 gm PO UD PRN; Protocol PRN Reason: Hypoglycemia Protocol Stop: 03/28/22 21:55 Hydrochlorothiazide (Hydrochlorothiazide 25 Mg Tab) 12.5 mg PO QAM [facility] Stop: 03/31/22 08:59 Last Admin: 03/01/22 07:39 Dose: 12.5 mg Documented by: Lactated Ringer's (Lr) 1,000 mls @ 80 mls/hr IV .[id number] [facility] Stop: 03/30/22 20:17 Last Admin: 03/01/22 17:36 Dose: 80 mls/hr Documented by: Piperacillin Sod/Tazobactam (Sod 3.375 gm/ Dextrose) 115 mls @ 28.75 mls/hr IV Q6H [facility]; Protocol Stop: 03/11/22 08:14 Last Infusion: 03/01/22 18:01 Dose: Infused Documented by: Insulin Aspart (Insulin Aspart Per Unit) 0 units SC ACHS [facility] Stop: 03/28/22 21:55 Last Admin: 03/01/22 17:35 Dose: 7 units Documented by: Losartan Potassium (Losartan Potassium 50 Mg Tab) 50 mg PO QAM [facility] Stop: 03/29/22 08:59 Miscellaneous (Carbohydrates For Hypoglycemia ) 15 - 30 gm PO UD PRN PRN Reason: Hypoglycemia Protocol Stop: 03/28/22 21:55 Morphine Sulfate (Morphine Sulfate 2 Mg/Ml Carp) 2 mg IV Q2H PRN PRN Reason: moderate pain Stop: 03/14/22 20:17 Morphine Sulfate (Morphine Sulfate 4 Mg/Ml 1 Ml Carp\Vial) 4 mg IV Q2H PRN PRN Reason: Severe Pain Stop: 03/14/22 20:17 Ondansetron HCl (Ondansetron Inj 2 Mg/Ml 2 Ml Vial) 4 mg IV Q4H PRN PRN Reason: Nausea And Vomiting Stop: 03/28/22 21:55 Oxycodone HCl (Oxycodone Hcl Ir 5 Mg Tab (Immediate Release)) 5 mg PO Q4H PRN PRN Reason: MODERATE PAIN Stop: 03/14/22 20:17 Oxycodone HCl (Oxycodone Hcl Ir 5 Mg Tab (Immediate Release)) 10 mg PO Q4H PRN PRN Reason: SEVERE PAIN Stop: 03/14/22 20:17 Warfarin Sodium (Warfarin Sod 5 Mg Tab) 5 mg PO DAILY@1600 [facility] Stop: 03/31/22 15:59 Last Admin: 03/01/22 15:43 Dose: 5 mg Documented by:
[2022-03-01] MEDS: AMPICILLIN/SULBACTAM SOD 1,500 MG in 0.9 % SODIUM CHLORIDE 100 ML IV SCH (20:17)
[2022-03-01] MEDS: ATORVASTATIN 20 MG TAB PO SCH (20:19)
[2022-03-02] MEDS: AMPICILLIN/SULBACTAM SOD 1,500 MG in 0.9 % SODIUM CHLORIDE 100 ML IV SCH ×3 (01:17→14:01)
[2022-03-02] MEDS: ATENOLOL 50 MG TABLET PO SCH (07:31)
[2022-03-02] MEDS: CALCITRIOL 0.25 MCG CAPSULE PO SCH (07:32)
--- NOTE | 2022-03-02 08:22 | Surgery Progress Note ---
Date of Service March 02, 2022 Assessment & Plan (1) Ascending cholangitis: Plan: POD#[address] Olsen and ERCP with GI Labs are pending Patient is clinically feeling well. no belly complaints. tolerating a diet abx plan per ID okay for discharge to home from our standpoint when okay with medicine f/u with Dr. olsen in clinic within 1-2 weeks Admission and Anticipated Discharge Date Admission Date: February 26, 2022 Supervising Physician Co-Signing Physician Notes I personally saw and evaluate the patient with Darshana Haines PA-C and agree with the assessment and plan. 77-year-old female status post laparoscopic cholecystectomy She is tolerating a diet without issue and has minimal abdominal pain She is stable for discharge from a surgical standpoint, please call back with any questions or concerns Subjective Patient feeling well, no complaints. Tolerating a diet. Pain is controlled Physical Exam Physical Exam: awake/alert, sitting up in chair Gastrointestinal (Abdomen): Inspection/Auscultation: + abdominal surgical incision (c/d/i with skin glue, no signs of infection) Percussion/Palpation: + abdomen tender (expected loren incisional discomfort to palpation) and abdomen soft Results & Data ([facility]) Vital Signs (Past 12 Hours) Vital Signs Temp Pulse Pulse Resp BP Pulse Ox 03/02/22 07:32 36.5 C 52 L 20 130/82 93 03/01/22 23:30 68 21 95 03/01/22 23:15 36.6 C 18 99/65 L 90 PG Care Time/CCT Total # of Minutes Spent Total Time Spent with Patient: Total time spent is greater than 50% in coordination of care (as documented) at patient's floor/unit and/or counseling patient: Coding Level of Care Code None Diagnoses Ascending cholangitis K83.09
[2022-03-02] MEDS: INSULIN ASPART PER UNIT SC SCH ×2 (08:35→12:17)
[2022-03-02 11:04] LABS: Hematocrit (blood only) 33.5 % (37-47); Hemoglobin 11.2 g/dL (12.0-16.0); Mean Corpuscular Hemoglobin 30.6 pg (25-34); Mean Corpuscular Hgb Conc 33.4 g/dL (32-36); Mean Corpuscular Volume 91.5 fL (80-100); Mean Platelet Volume 12.6 fL (7.4-10.4); Platelet Count 152 K/uL (130-400); RDW Standard Deviation 46.9 fL (36.4-46.3); Red Blood Count 3.66 M/uL (4.2-5.4); White Blood Count 8.26 K/uL (4.8-10.8)
[2022-03-02 11:18] LABS: INR 1.3 (0.9-1.1); Prothrombin Time 13.4 Seconds (9.0-12.0)
[2022-03-02 11:41] LABS: Potassium 3.6 mmol/L (3.5-5.1)
[2022-03-02 11:43] LABS: Albumin Globulin Ratio 1.1 (0.9-2); Albumin Level 3.2 gm/dl (3.4-5.0); BUN Creatinine Ratio 18.8 (10-20); Bilirubin,Total 1.5 mg/dl (0.2-1.0); Calcium 8.8 mg/dl (8.5-10.1); Creatinine Clr Calc Pharmacy 58.2 ml/min; Est GFR (African American) 61.7 ml/min; Est GFR (Non-African American) 53.3 ml/min; Globulin 2.8 gm/dl (2.5-4.0); Magnesium 1.6 mg/dl (1.7-2.4)
[2022-03-02] MEDS: MAGNESIUM SULFATE / D5W 1 GM/100 ML BAG IV SCH ×2 (14:01→14:46)
--- NOTE | 2022-03-03 00:20 | Discharge Summary ---
Date of Service March 03, 2022 Admission HPI Per Admitting Provider This is a 77-year-old female with PMHx of HTN, DM type II, hyperparathyroidism, chronic A. fib on Coumadin, diastolic dysfunction, gallstones, seasonal allergic rhinitis, venous insufficiency, severe obesity with BMI of 36, SJ on CPAP who presents to the ER with acute onset of abdominal pain, nausea and vomiting which began at 10 AM this morning. She reports that she was in her normal state of health yesterday without any abdominal complaints. She ate a salad and had several pieces of celery yesterday, and denies any high fat foods. This morning she took all of her medications with some water, and then shortly after developed nausea. Her vomitus was dark, bilious, and somewhat brown, she denies hematemesis or coffee-ground emesis. Pain was located in the right upper quadrant which is essentially subsided now since having morphine sulfate IV given in the ER. She also complains of feeling bloated which is still present. Her bowels have been moving regularly, and urinating without difficulty. She denies any fevers, sweats or chills. Patient lives at home by herself but has 2 sons who live locally and help her when she needs things. Here in the ER liver function test is found to be elevated, with total bilirubin of 3.2, AST 632, ALT 388, alk phos 168, lipase 35. Gallbladder ultrasound shows hepatic steatosis and cholelithiasis without evidence of cholecystitis. Patient notes that she has been recently placed on Norvasc (02/14) to help with circulation in her lower legs, and that she typically has cold feet and purple toes. She saw cardiology at the end of December. Caitlin Gomez follows her routinely, and her HCTZ was reduced to 12.5 mg daily due to complaints of dizziness. This seems to be improved with dose reduction. She does not notice the dizziness is worse with the addition of Norvasc recently. Patient does not use ambulatory device. Discharge Data Allergies Allergy/AdvReac Type Severity Reaction Status Date / Time doxycycline Allergy Intermediate RASH Verified 02/26/22 15:49 acetaminophen [From Tylenol] AdvReac Intermediate YEAST Verified 02/26/22 15:49 INFECTIONS Consultations 02/26/22 18:07 ED Decision to Admit Stat 02/26/22 18:27 Consult Gastroenterology Routine 02/27/22 10:43 Consult General Surgery Routine 03/01/22 07:17 Consult Infectious Diseases Routine Procedures Performed Operation Date: 02/27/22 11:40 <No data on this case meets the specified criteria> Operation Date: 02/28/22 09:40 Actual Procedures p Laparoscopic Cholecystectomy - Harpal Baires DO, FACS s Endoscopic retrograde cholangiopancreatography - Bindu Cedeno MD Ordered Studies 02/26/22 13:34 US gallbladder Stat 02/26/22 19:10 MR MRCP Stat 02/28/22 RI ERCP biliary ductal Routine Hospital Course (1) Sepsis: Early Sepsis, POA. Secondary to choledocholithiasis. Resuscitated. Plan per below. (2) Ascending cholangitis: Ascending cholangitis with evidence of cholelithiasis, continue antibiotic regimen outlined below. Clinically improved after source control (3) Gram-negative bacteremia: E. coli bacteremia secondary to ascending cholangitis with stones. Status post laparoscopic cholecystectomy on 02/28. Status post ERCP on with biliary sphincterotomy and biliary stent placement with stone removal. Consulted ID who recommend switching to Unasyn 1.5 g IV every 6 hours and when ready for discharge switching to Augmentin 875 twice daily to complete a total 10 to 14 days of antibiotic therapy from 02/27 (4) Postoperative hypoxia: No evidence of pneumonia, wean as tolerated. Will consider chest x-ray if still hypoxic in a.m. Notably patient has no respiratory distress or respiratory symptoms at this time. (5) Elevated transaminase level: 2/2 biliary obstruction. Improved and expect to continue to improve s/p ERCP with stent placement into CBD (6) UTI (urinary tract infection): UA appeared positive for infection however, patient was without UTI symptoms. Covered on the zosyn that is covering for GI infection. Culture results are negative so UTI ruled out. (7) Atrial fibrillation: -Rate controlled in the 90s at bedside -Holding Coumadin with recent lap fatimah. We will plan to restart Coumadin this evening Continue daily INR. Monitor for bleeding. (8) Diabetes mellitus, type 2: -Last A1c was 6.7 on 11/21/2021, will repeat with a.m. labs -Holding metformin -insulin coverage (9) Hypertension: -May continue losartan 50 mg every morning, atenolol 125 mg every morning, amlodipine 2.5 mg daily, hold HCTZ. Blood pressure is 99/63. Hold HCTZ and losartan. Hold amlodipine. Continue atenolol (10) SJ on CPAP: CPAP qHS (11) DVT prophylaxis: DVT PPx - teds, scds, starting Coumadin CODE: Full code Dispo: From home, likely to remain in the hospital x 1-2 days post op. Radha Ordonez DO [facility] Hospitalist (12) COLLINS (acute kidney injury): Acute kidney failure on CKD stage III Discharge Plan Discharge Items Patient Disposition: Home - Self-Care Reason For Visit: CHOLEDOCOLITHIASIS, ABD PAIN, ELEVATED TRANSAMINAS Discharge Diagnosis: Sepsis secondary to ascending cholangitis in setting of choledocholithiasis status post common bile duct stent and laparoscopic cholecystectomy E. coli bacteremia Postoperative hypoxia-resolved Elevated transaminase level Condition on Discharge: Good Activity: Per Instructions section Lifting: No more than 10 pounds Bathing Comment: may shower; no soaking in tubs/pools Exercise/Sports: Wait until after follow-up appointment Driving/Machine Use: no driving while taking narcotics for pain Non-emergency contact: Primary Care Provider and Surgeon Call non-emergency contact if: you have any medication questions, your symptoms worsen, your pain is not controlled, your pain is concerning for you, you have a fever, your temperature is above 101.5, your wound has increased redness, your wound has increased drainage and your wound pain has increased Follow-up/Referrals: Harpal Baires DO, NATAN [Physician] - (Please call to schedule follow up in clinic within 2 weeks) Megan Mak MD [Primary Care Provider] - Diet: Carb Consistent or DM2 Addtl Attending Provider Instructions: Please take all medications as instructed on discharge as below. He will need to take an additional 10 days of Augmentin antibiotic to clear the bacteria in your bladder You will need to follow-up with [facility] gastroenterology in a week's time to remove the common bile duct stent. They should be contacting you with an appointment for this. It is important that you follow-up with your primary care doctor within 1 week of hospital discharge to ensure you are still doing well after returning home. Additional blood work may be requested to monitor your liver function test, bilirubin and kidney function. It was a pleasure taking care of you! Please call if you have any questions or problems. You can reach a [facility] hospitalist on duty at [facility] 24 hours a day by calling [phone]. Take care of yourself. Radha Ordonez DO [facility] Hospitalist Pending Studies at Discharge: Yes Studies:: surgical pathology Stand-Alone Forms: My [facility] Medications and DC Order Prescriptions: New oxycodone 5 mg Tablet 5 mg PO Q4H PRN (Reason: severe pain (scale score 7-10)) Qty: 10 RF: 0 amoxicillin-pot clavulanate 875-125 mg tablet 1 tab PO Q12H Qty: 20 RF: 0 Continued (DME) Wheeled Walker Misc See Rx Instructions .ROUTE .MEDSUPPLY Qty: 1 RF: 0 (DME) 3-in-1 Commode Misc See Rx Instructions .ROUTE .MEDSUPPLY Qty: 1 RF: 0 calcitriol 0.25 mcg capsule 0.25 mcg PO QAM Qty: 90 RF: 3 (DME) blood sugar diagnostic [OneTouch Ultra Blue Test Strip] Strip See Rx Instructions .ROUTE .MEDSUPPLY Qty: 10 RF: 0 tramadol 50 mg Tablet 50 - 100 mg PO Q6H PRN (Reason: pain) Qty: 30 RF: 0 atorvastatin [Lipitor] 20 mg tablet 20 mg PO QPM RF: 0 warfarin 5 mg Tablet See Rx Instructions .ROUTE .COMPLEX RF: 0 loratadine [Claritin] 10 mg tablet 10 mg PO QPM RF: 0 metformin 500 mg Tablet Extended Release 24 Hr 1,000 mg PO QPM RF: 0 losartan 50 mg tablet 50 mg PO QAM RF: 0 atenolol 50 mg tablet 125 mg PO QAM RF: 0 amlodipine 2.5 mg tablet 2.5 mg PO QAM RF: 0 hydrochlorothiazide 25 mg tablet 12.5 mg PO QAM RF: 0 Discharge Orders: Discharge Order (Routine); Ordered 03/02/22 Ordered By: Radha Sanchez/Other Patient Handouts: Managing Type 2 Diabetes Admission Data Admit Date/Time: 02/26/22 18:27 Attending Provider: Radha Ordonez Admit Provider: Radha Ordonez Primary Care Provider: Megan Mak Other Providers: Radha Ordonez ; Liudmila Crabtree ; Silvino Saeed ; Sidney Sanchez ; Jessica Dietz ; uJne Navarro ; Marlo García ; Walter Frank ; Rox Eubanks ; Danni Torres ; Shaheen Kirby Jr ; Malachi Mendez ; Rah Gomez ; Yamile Morataya ; Kevin Pierce ; Betty River ; Mekhi De I. ; Nicolas Saucedo II ; Dee Catalan ; Sidney Perdomo ; Shaheen Lindsay Other Interventions: Discharge Summary Assessment (RN) Last Done: 03/02/22 16:19
== END 2022-03-02 17:24 | disposition home or self-care (01) | DRG 853 ==
LOC: ED 12:53 → 2N 18:27

== ENCOUNTER 2023-09-26 09:06 | Observation (INO) ==
--- NOTE | 2023-09-02 11:43 | PAT Medication Instructions ---
Medication Instructions Date of Service September 02, 2023 Home Medications Medication Instructions Recorded calcitriol 0.25 mcg capsule 0.25 mcg PO QAM #90 caps 10/01/22 atorvastatin 20 mg tablet (Lipitor) 20 mg PO QPM loratadine 10 mg tablet (Claritin) 10 mg PO QPM metformin 500 mg tablet,extended release 24 hr 1,000 mg PO QPM warfarin 5 mg tablet See Rx Instructions .Route .COMPLEX atenolol 50 mg tablet 125 mg PO QAM hydrochlorothiazide 25 mg tablet 12.5 mg PO QAM losartan 50 mg tablet 50 mg PO BID calcitriol 0.25 mcg capsule 0.25 mcg PO QAM diclofenac sodium 1 % topical gel 2 g topical QID PRN Pain albuterol sulfate 90 mcg/actuation aerosol inhaler 2 puff inhalation Q6H PRN Shortness Of Breath amlodipine 5 mg tablet 5 mg PO HS cholestyramine-aspartame 4 gram oral powder (Cholestyramine Light) 4 g PO DAILY ASK your prescriber and surgeon warfarin 5 mg tablet See Rx Instructions .Route .COMPLEX STOP taking 48 hours before surgery cholestyramine-aspartame 4 gram oral powder (Cholestyramine Light) 4 g PO DAILY STOP taking 24 hours before surgery diclofenac sodium 1 % topical gel 2 g topical QID PRN Pain DO NOT take the morning of surgery hydrochlorothiazide 25 mg tablet 12.5 mg PO QAM losartan 50 mg tablet 50 mg PO BID calcitriol 0.25 mcg capsule 0.25 mcg PO QAM Take morning of surgery With a small sip of water, OTHERWISE NOTHING TO EAT OR DRINK AFTER MIDNIGHT: atenolol 50 mg tablet 125 mg PO QAM albuterol sulfate 90 mcg/actuation aerosol inhaler 2 puff inhalation Q6H PRN Shortness Of Breath (use if needed; please bring rescue inhaler with you to hospital day of surgery if possible) Take evening before surgery atorvastatin 20 mg tablet (Lipitor) 20 mg PO QPM loratadine 10 mg tablet (Claritin) 10 mg PO QPM metformin 500 mg tablet,extended release 24 hr 1,000 mg PO QPM losartan 50 mg tablet 50 mg PO BID albuterol sulfate 90 mcg/actuation aerosol inhaler 2 puff inhalation Q6H PRN Shortness Of Breath (if needed) amlodipine 5 mg tablet 5 mg PO HS Other Notes If you have any questions please call us at [phone] or [phone] or [phone] or [phone]
--- NOTE | 2023-09-10 14:19 | Anesthesiology Consultation ---
Date of Service September 10, 2023 Assessment & Plan (1) Encounter for pre-operative examination: Chart Review Chart Review: Acceptable Risk for Surgery (pending preop PRP/CRP and DOS labs/EKG) and Patient seen in Pre Admission Testing - Awaiting PRP and CRP (hemolyzed during PAT appt 09/10/23)- patient getting done at [facility] on 09[facility]18/23 - Check coags AM DOS - Check BSG AM DOS - Repeat EKG DOS Difficult IV stick - Patient is NOT an ideal OPJ (currently 23 hour obs) Per PAT appt on 09/10/23, no recent illness/disease exposures, illness related symptoms, or recent illness/disease positive tests. Will leave to surgeon's discretion if preop Covid testing needed Patient last seen by cardio 02/26/23= seen for routine cardiology follow up. Hypertensioncontrolled. Permanent A-fib with controlled ventricular response- continue AC and atenolol. Severe left atrial enlargement. Dyslipidemiawell- controlled. Chronic bilateral edema secondary to venous insufficiency and dietary indiscretionspatient on hydrochlorothiazide. Diabetescontrolled. Obesity with continued weight gain. Follow-up in 1 year Teaching & Discussion Pre-Anesthesia Teaching/Discussion Notes: Instructed NPO after midnight before surgery,except medications with 15 cc of water. Medication instructions provided according to the PAT guidelines. History Surgery Operation Date: 09/26/23 12:30 Proposed Procedures p Left Total Knee Arthroplasty - Casey De MD Height/Weight Height: 5 ft 6 in Weight: 108 kg Allergies Allergy/AdvReac Type Severity Reaction Status Date / Time doxycycline Allergy Intermediate RASH Verified 08/28/23 09:29 chlorhexidine Allergy Mild Rash Verified 08/28/23 09:30 acetaminophen [From Tylenol] AdvReac Intermediate YEAST Verified 08/28/23 09:29 INFECTIONS Medications Home Medications Medication Instructions Recorded Confirmed Last Taken atorvastatin 20 mg tablet (Lipitor) 20 mg PO QPM 12/11/18 08/28/23 02/25/22 loratadine 10 mg tablet (Claritin) 10 mg PO QPM 12/11/18 08/28/23 02/25/22 metformin 500 mg tablet,extended 1,000 mg PO QPM 12/11/18 08/28/23 02/26/22 release 24 hr warfarin 5 mg tablet See Rx Instructions .Route .COMPLEX 12/11/18 08/28/23 02/25/22 blood sugar diagnostic (OneTouch #10 ea 12/03/19 04/23/23 Unknown Ultra Blue Test Strip) atenolol 50 mg tablet 125 mg PO QAM 02/26/22 08/28/23 02/26/22 hydrochlorothiazide 25 mg tablet 12.5 mg PO QAM 02/26/22 08/28/23 02/26/22 losartan 50 mg tablet 50 mg PO BID 02/26/22 08/28/23 02/26/22 calcitriol 0.25 mcg capsule 0.25 mcg PO QAM #90 caps 10/01/22 08/28/23 Unknown diclofenac sodium 1 % topical gel 2 g topical QID PRN Pain 04/23/23 08/28/23 Unknown albuterol sulfate 90 mcg/actuation 2 puff inhalation Q6H PRN 08/28/23 08/28/23 Unknown aerosol inhaler Shortness Of Breath amlodipine 5 mg tablet 5 mg PO HS 08/28/23 08/28/23 Unknown cholestyramine-aspartame 4 gram 4 g PO DAILY 08/28/23 08/28/23 Unknown oral powder (Cholestyramine Light) Past Medical History Medical History Hyperlipidemia SJ on CPAP Hyperparathyroidism S/p parathyroidectomy 2018 (right inferior parotid gland removed) Follows with [place] endocrine Stable per patient Osteoporosis Hypertension GERD (gastroesophageal reflux disease) Aggravated recently since starting Cholestr On anticoagulant therapy warfarin daily Diabetes mellitus, type 2 Glucose stable per patient Atrial fibrillation DX'D 2012-ON WARFARIN-F/U DR CEBALLOS Exercise / Class Metabolic Activity III < 4 Walking/Shop/Light housework (no chest pain or SOB with flat surface ambulation ) Past Family History Family History Sister Breast cancer Unknown Cardiac disorder Brother Family history of diabetes mellitus Other No family history of adverse response to anesthesia Past Surgical History Surgical History History of dilatation and curettage History of ERCP 02/28/22 @ [facility] Hx laparoscopic cholecystectomy (02/28/22) Laparoscopic Cholecystectomy - Harpal Baires DO, FACS Status post total hip replacement, right History of cardioversion X 2 Hx of hysterectomy Hx of colonoscopy History of parathyroid surgery Past Anesthesia History No Hx of Anesthesia Complications and No Family Hx of Anesthesia Complications History of PONV No Hx of PONV and No Hx of Motion Sickness Social History Smoking Status: Former smoker tobacco type: cigarettes Do You Dip or Chew Tobacco: No Smoking End Date: quit at age of 29 Hx Alcohol Use: No Alcohol type: beer and wine alcohol intake frequency: holidays/special occasions only Hx Substance Use: No substance use type: does not use Review of Systems Patient denies chest pain, shortness of breath at rest, cough, wheezing, palpitations. No hx of seizures, stroke, MD. No hx of blood clots or blood transfusions Physical Exam Vital Signs VITALS BP 145/78 P 83 TEMP 97.7 SP02 94% RESP 16 Constitutional no acute distress ENMT Mouth: no TMJ clicking Thyromental Distance: < 3.5 Finger Breadths (2.5) Mallampati Class: II (smaller airway ) Cap to molar Neck + short neck and + thick neck; neck extension not limited Respiratory normal respiratory effort; no respiratory distress Auscultation: lungs clear to auscultation bilaterally; no wheezes Cardiovascular Heart Sounds: no murmur Vessels: no carotid bruit Irregularly irregular (rate controlled) Musculoskeletal Spine: no pain with cervical ROM Extremities: extremities normal to inspection Psychiatric Orientation: alert Lab Results Anesthesia Preop Results Results Anesthesia Widget: WBC 7.28 K/ul (4.8-10.8) 09/10/23 Hgb 11.5 g/dl (12.0-16.0) L 09/10/23 Hct 36.2 % (37.0-47.0) L 09/10/23 Plt 203 K/uL (130-400) 09/10/23 PT 36.7 Seconds (9.0-12.0) H 09/10/23 PTT 39 Seconds (21-31) H 09/10/23 INR 3.6 (0.9-1.1) H 09/10/23 HA1c 6.8 % (4.5-5.6) H 09/10/23 Blood Type A Positive 09/10/23 Antibody Screen NEGATIVE 09/10/23 Testing Laboratory Results Anemia chronic and stable since 2019 Elevated coags- on Coumadin- will recheck DOS Electrocardiogram Date: 09/10/23 Atrial fibrillation with a competing junctional pacemaker at 82bpm Nonspecific T wave abnormality When compared to EKG from February 27, 2022- no significant change was found (Discussed with Dr. Owens- recommend repeating EKG DOS) Chest X-Ray Date: 09/10/23 FINDINGS: Cardiomegaly. Atherosclerosis of the aorta. No pneumothorax, pleural effusion or airspace consolidation. Surgical clips project over the midline upper chest. Degenerative changes of the shoulders and spine. Cholecystectomy. IMPRESSION: Cardiomegaly without acute process. Echocardiogram Date: 11/05/18 EF: 60-65% There is atrial fibrillation during examination. Normal LV chamber size with mild concentric LVH. Normal LV systolic function without regional wall motion abnormality. Left atrial enlargement suggest diastolic LV dysfunction. RV cavity size is normal. RV systolic function is normal. No significant valvular pathology. Severe left atrial enlargement. Stress Test Date: 11/16/19 Resting EF: 70% Gated SPECT imaging reveals normal myocardial thickening and wall motion. Lexiscan nuclear cardiac stress test negative for ischemia.
--- NOTE | 2023-09-20 09:22 | History & Physical Report ---
Date of Service September 20, 2023 Assessment & Plan (1) Left knee DJD: 78-year-old female with multiple medical comorbidities status post right total hip replacement in the past with bilateral knee pain and DJD left side more symptomatic than the right. She is failed conservative measures. She is planned to have her knee fixed a couple years ago but got delayed by AUGUSTO. She is not ready to have her left knee fixed. She is on Coumadin with multiple medical comorbidities. Plan: When taken the operating room do a left knee replacement. The risks Mente this procedure plan the patient clued but not limited to DVT PE infection neurological and vascular bleeding palm pain limb range of motion sepsis fairly of symptoms incomplete relief of symptoms need need for further surgery excetra. The patient understands and desires to proceed informed consent is obtained. She is on Coumadin she knows to stop that 5 days preop. The Coumadin clinic will assist with this. She does not need a Lovenox bridge. Will start her on Coumadin immediately postop. She is planned to be discharged to home and having home health and family assistance. She has a CPAP machine she will bring to the hospital. Will use insulin sliding scale coverage to a Cook manage her diabetes in the hospital. (2) Status post right hip replacement: History of Present Illness Chief Complaint: . Bilateral knee pain discomfort left side greater than the right. Primary Care Provider: Megan Mak MD . Patient is a 78-year-old female well-known to me from previous right hip replacement done about 3 years ago. She is also had a long history of knee pain and discomfort. Left knee has been bothering more than the right. She been through extensive conservative treatment. She is planning on having the left knee replaced several years ago and then AUGUSTO hit and never got it done. Hips doing well. She continues to be bothered by the knee pain. She has had injections which provide very temporary relief. It is global pain. The more she is up what hurts. She like to have her left knee fixed. Of note, the patient does have a history of atrial fibrillation on Coumadin followed by Dr. Ceballos and Dr. Vásquez. She is also diabetic with moderate underlying obesity. Allergies Allergy/AdvReac Type Severity Reaction Status Date / Time doxycycline Allergy Intermediate RASH Verified 08/28/23 09:29 chlorhexidine Allergy Mild Rash Verified 08/28/23 09:30 acetaminophen [From Tylenol] AdvReac Intermediate YEAST Verified 08/28/23 09:29 INFECTIONS Home Medications Medication Instructions Recorded Confirmed Type atorvastatin 20 mg tablet (Lipitor) 20 mg PO QPM 12/11/18 08/28/23 History loratadine 10 mg tablet (Claritin) 10 mg PO QPM 12/11/18 08/28/23 History metformin 500 mg tablet,extended 1,000 mg PO QPM 12/11/18 08/28/23 History release 24 hr warfarin 5 mg tablet See Rx Instructions .Route .COMPLEX 12/11/18 08/28/23 History blood sugar diagnostic (OneTouch #10 ea 12/03/19 04/23/23 History Ultra Blue Test Strip) atenolol 50 mg tablet 125 mg PO QAM 02/26/22 08/28/23 History hydrochlorothiazide 25 mg tablet 12.5 mg PO QAM 02/26/22 08/28/23 History losartan 50 mg tablet 50 mg PO BID 02/26/22 08/28/23 History calcitriol 0.25 mcg capsule 0.25 mcg PO QAM #90 caps 10/01/22 08/28/23 Rx diclofenac sodium 1 % topical gel 2 g topical QID PRN Pain 04/23/23 08/28/23 History albuterol sulfate 90 mcg/actuation 2 puff inhalation Q6H PRN 08/28/23 08/28/23 History aerosol inhaler Shortness Of Breath amlodipine 5 mg tablet 5 mg PO HS 08/28/23 08/28/23 History cholestyramine-aspartame 4 gram 4 g PO DAILY 08/28/23 08/28/23 History oral powder (Cholestyramine Light) Past Med/Surg History Medical History Hyperlipidemia SJ on CPAP Hyperparathyroidism S/p parathyroidectomy 2018 (right inferior parotid gland removed) Follows with [place] endocrine Stable per patient Osteoporosis Hypertension GERD (gastroesophageal reflux disease) Aggravated recently since starting Cholestr On anticoagulant therapy warfarin daily Diabetes mellitus, type 2 Glucose stable per patient Atrial fibrillation DX'D 2012-ON WARFARIN-F/U DR CEBALLOS Surgical History History of dilatation and curettage History of ERCP 02/28/22 @ [facility] Hx laparoscopic cholecystectomy (02/28/22) Laparoscopic Cholecystectomy - Harpal Baires, DO, FACS Status post total hip replacement, right History of cardioversion X 2 Hx of hysterectomy Hx of colonoscopy History of parathyroid surgery Family History Sister Breast cancer Unknown Cardiac disorder Brother Family history of diabetes mellitus Other No family history of adverse response to anesthesia Social History Smoking Status: Former smoker Tobacco Type: Cigarettes Second Hand Exposure: No; Do You Dip or Chew Tobacco: No; Hx Alcohol Use: No Hx Substance Use: No Preferred Language: Macedonian Communication Ability: Effective Visual Impairment: No Limitations City Marshal Required: No Beliefs That Will Affect Care: None marital status: Current Living Situation: Alone Feels Safe at Home: Yes Assistive Devices: CPAP and Glasses Review of Systems All systems reviewed & are unremarkable except as noted in HPI & below. Physical Exam . Physical examination of the knees reveal patient walks with a slight bit of a limp. Knee reveals varus alignment to her knee. She got bony hypertrophy medially. She is tender over the medial joint line. Small knee effusion. Fairly stiff knee with about a 10 to 15 degree flexion contracture and only bends to 105 degrees. No particular pain with hip motion. She is neurovascular intact Constitutional WD/WN, vitals as above Respiratory normal respiratory effort, lungs clear to auscultation Cardiovascular RRR, no murmur, no edema Gastrointestinal (Abdomen) normal bowel sounds, soft, nontender, no hepatosplenomegaly Results & Data Results & Data Laboratory Results . Diagnostic Findings . X-rays of the left knee reviewed. Shows advanced bilateral knee DJD. The left side is a bit worse than the right. She got complete loss of medial joint space. She has subchondral sclerosis. A little bit of tibiofemoral subluxation. Some diffuse osteopenia. PG Care Time/CCT Total # of Minutes Spent Total Time Spent with Patient: Total time spent is greater than 50% in coordination of care (as documented) at patient's floor/unit and/or counseling patient: Coding Level of Care Code None Diagnoses Left knee DJD M17.12 Status post right hip replacement Z96.641
[~2023-09-26 09:06] MED LIST changes: +BUPIVACAINE 0.25% PF 30 ML VIAL ONE; +CeleBREX 200 MG CAP PO SCH; -GABAPENTIN 300 MG CAP PO SCH; +ROPIV 0.5% 246mg, Ketorolac 30mg, EPINEPHrine 0.5mg in NSS INFIL SCH; +TRANEXAMIC ACID 1,000 MG **IV Intra-op IV SCH; -TRANEXAMIC ACID 1,000 MG **IV Pre-op IV SCH; +ceFAZolin 2000MG 2,000 MG/15 ML SYR IV SCH
--- NOTE | 2023-09-26 09:12 | History & Physical Bridge Note ---
Date of Service September 26, 2023 History & Physical Bridge Note I have examined the patient, reviewed the History & Physical and in the interval since the performance of the History & Physical I have noted the following changes of clinical significance: no changes noted
[2023-09-26] MEDS ORDERED: PROPOFOL IV EMULSION 10 MG/ML 20 ML VIAL IV ONE (09:56)
[2023-09-26] MEDS ORDERED: MIDAZOLAM HCL 1 MG/ML 2ML VIAL ONE (09:56)
[2023-09-26] MEDS ORDERED: fentaNYL citrate PF 100 MCG/2 ML VIAL ONE (09:56)
[2023-09-26] MEDS ORDERED: ATROPINE SULFATE 0.1 MG/ML 10ML SYR IV PRN (10:24)
[2023-09-26] MEDS ORDERED: ePHEDrine sulfate 50 MG/ML AMP IV PRN (10:24)
[2023-09-26] MEDS ORDERED: fentaNYL citrate PF 100 MCG/2 ML VIAL IV PRN (10:24)
[2023-09-26] MEDS ORDERED: ONDANSETRON INJ 2 MG/ML 2 ML VIAL IV PRN ×2 (10:24→14:35)
--- OUTSIDE RECORDS SUMMARY | 2023-09-26 10:26 | External Medical Summary | Summary of Care ---
Author Name Unknown Organization [facility] Address [address] [facility] [place] [address] Phone [phone] Care Team Providers Care Technical Proposal Writer Name Role Phone Megan Mak MD Primary Care Provider [phone] Reason for Visit * Reason Comments Dosage Adjustment In Person (Anticoag Cl inic) Encounter Details Date Type Department Care Team (Latest Contact Info) Description 09/18/2023 11:10 AM [facility] Anticoagulation Pharmacy, [facility] [address] [facility] [place] [address] Pharmacist1, [facility] [address] [facility] [place] [id number] Chronic atrial fibrillation (HCC)*; Anticoagulation management encounter; doctor of naprapathy current use of anticoagulant therapy Allergies Active Allergy Reactions Criticality Noted Date Comments Acetaminophen Medium 12/11/2018 Other reaction(s): YEAST INFECTIONS Doxycycline Calcium Rash Low 06/20/2010 Rash Lisinopril 04/03/2021 Rash documented as of this encounter (statuses as of 09/18/2023) Medications Medication Sig Dispensed Refills Start Date End Date Status FLUTICASONE PROPIONATE 50 MCG/ACT NA SUSPIndications:Aller gic rhinitis due to other allergen 1-2 sprays each side twice a day 1 Bottle 6 12/05/2011 Active CPAP every night at bedtime . 0 Active Loratadine 10 MG Oral Tablet (Claritin)Indications :Non-seasonal allergic rhinitis, unspecified trigger,Dermatitis Take by mouth 1 Tablet in the morning AND 1 Tablet before bedtime. Allergies/skin itch/rash. 30 Tablet 5 05/29/2022 Active OneTouch Verio w/Device KitIndications:Type 2 diabetes mellitus with hemoglobin A1c goal of less than 7.0% (HCC),Controlled type 2 diabetes mellitus with microalbuminuria, without long-term current use of insulin Use to check sugars once a day Dx E 11.9 1 Kit 0 11/26/2022 Active OneTouch Verio In Vitro Strip (Glucose Blood)Indications:Typ e 2 diabetes mellitus with hemoglobin A1c goal of less than 7.0% (HCC),Controlled type 2 diabetes mellitus with microalbuminuria, without long-term current use of insulin Use to check sugars once a day Dx E 11.9 100 Strip 3 11/26/2022 Active Cardinal MidstreamTouch UltraSoft LancetsIndications:Ty pe 2 diabetes mellitus with hemoglobin A1c goal of less than 7.0% (HCC),Controlled type 2 diabetes mellitus with microalbuminuria, without long-term current use of insulin Use to check sugars once a day Dx E 11.9 100 Each 3 11/26/2022 Active Warfarin Sodium 5 MG Oral Tablet (Coumadin)Indications :Persistent atrial fibrillation (HCC),Warfarin anticoagulation TAKE ONE TABLET BY MOUTH ON FRIDAY, FRIDAY AND FRIDAY AND ONE HALF TABLET ALL OTHER DAYS DIRECTED BY COUMADIN CLINIC 90 Tablet 3 11/26/2022 4 Active Diclofenac Sodium 1 % External Gel (Voltaren) APPLY TO AFFECTED AREAS ON LEFT KNEE AND LOWER BACK TWO TIMES A DAY NEEDED 400 g 0 10/17/2022 4 Active Calcitriol 0.25 MCG Oral Capsule (Rocaltrol) TAKE ONE CAPSULE BY MOUTH EVERY MORNING 90 Capsule 3 10/01/2022 4 Active Atorvastatin Calcium 20 MG Oral Tablet (Lipitor)Indications: Dyslipidemia, goal LDL below 100 TAKE ONE TABLET BY MOUTH EVERY DAY 90 Tablet 3 09/16/2022 4 Active Atenolol 50 MG Oral Tablet (Tenormin) TAKE TWO AND ONE-HALF TABLETS BY MOUTH EVERY DAY 225 Tablet 3 09/16/2022 4 Active amLODIPine Besylate 5 MG Oral Tablet (Norvasc)Indications: Type 2 diabetes mellitus with hemoglobin A1c goal of less than 7.0% (HCC),HTN, goal below 140/80,Toe cyanosis,Bilateral cold feet Take 1 Tablet by mouth at bedtime. inc dose to 5mg in fall/winter --inc 06/03/2023 90 Tablet 1 06/03/2023 Active metFORMIN HCl ER 500 MG Oral Tablet Extended Release 24 Hour (Glucophage XR)Indications:Type 2 diabetes mellitus with hemoglobin A1c goal of less than 7.0% ([facility]) Take 2 Tablets by mouth daily with dinner. 180 Tablet 3 06/03/2023 Active Losartan Potassium 50 MG Oral Tablet (Cozaar)Indications:T ype 2 diabetes mellitus with hemoglobin A1c goal of less than 7.0% ([facility]),Controlled type 2 diabetes mellitus with microalbuminuria, without long-term current use of insulin,HTN, goal below 140/80,Diastolic dysfunction Take 1 Tablet by mouth in the morning and 1 Tablet before bedtime. 180 Tablet 3 06/03/2023 Active hydroCHLOROthiazide 12.5 MG Oral Tablet (Hydrodiuril)Indicati ons:Diastolic dysfunction,Edema of both lower legs due to peripheral venous insufficiency Take 1 Tablet by mouth in the morning. 90 Tablet 3 07/10/2023 Active Cholestyramine Light 4 GM/DOSE Oral Powder (Questran Light)Indications:S/P laparoscopic cholecystectomy,Loose stools mix ONE SCOOP IN 6 OZ OF LIQUID EVERY DAY NEEDED FOR DIARRHEA 231 g 0 07/11/2023 Active Azithromycin 250 MG Oral Tablet (Zithromax Z-Jerry)Indications:Acu te wheezy bronchitis Take two tablets by mouth on first day, then 1 tablet daily until gone-start if not better on prednisone 6 Tablet 0 07/23/2023 Active Albuterol Sulfate HFA 108 (90 Base) MCG/ACT Inhalation Aerosol SolutionIndications:V iral URI with cough,Acute wheezy bronchitis Inhale 2 Puffs by mouth every 4 hours as needed for Wheezing. 18 g 0 07/23/2023 Active predniSONE 10 MG Oral Tablet (Deltasone)Indication s:Viral URI with cough,Laryngitis,Acut e serous otitis media, recurrence not specified, unspecified laterality Take 5 tabs for 2 days, 4 tabs for 2 days, 3 tabs for 2 days, 2 tabs for 2 days 1 tab for 2 days 30 Tablet 0 07/23/2023 Active documented as of this encounter (statuses as of 09/18/2023) Active Problems Problem Noted Date Diagnosed Date Raynaud's disease without gangrene 06/11/2023 S/P laparoscopic cholecystectomy 03/16/2022 Overview: 02/26/22-03/03/22. Discharge dx: Sepsis due to cholangitis in setting of choledocholithiasis s/p common bile duct stent placement and lap fatimah. E-coli bacteremai. Post op hypoxia - resolved. Elevated transaminase level. >ERCP With stent removal is cecy 05/22/22 Hypertensive retinopathy of both eyes 11/26/2021 SJ on CPAP 05/29/2021 Controlled type 2 diabetes m kenny with microalbuminuria, without long-term current use of insulin 05/29/2021 HTN, goal below 140/80 09/21/2019 History of total right hip replacement 9 Gallstones 07/01/2019 Overview: On xr-no sx Snoring 09/15/2018 Advanced directives, counseling/discussion 02/21 Diastolic dysfunction 12/23/2016 Overview: 12/23--echo--afib, ef 55-60%, sev enl LA, mild clvh, s/o LVDD. Hyperparathyroidism 11/01/2016 Overview: 04/25PTH remains hi with ionised Ca+ ULN, stable VD>- DrUlbrect eval 04/25: 07/08/18-st sensipar 30mg, 07/17/18-nml Ca,alb Age-related osteoporosis wit hout current pathological fracture 07/18/2016 Overview: deax 03/27--LR rpt 3 yrs Seasonal allergic rhinitis 07/18/2016 Venous insufficiency 07/18/2016 Warfarin anticoagulation 11/01/2013 Bilateral leg edema 10/20/2012 Chronic atrial fibrillation 10/12/2012 Overview: Permanent atrial fibrillation with controlled ventricular response. S/p failed DC cardioversion x 2-on aten 100+25mg Afib diag 10/12/2012;started on warfarin and underwent cardioversion in January 2013. Within 6 days she had recurrence of the atrial fibrillation. She was started on Multaq and underwent a second cardioversion. Again had recurrence of the atrial fibrillation after about 6 days.Saw 04/2013-rate ctr, ct anticoag was rec Severe obesity with body mas s index (BMI) of 35.0 to 39.9 with serious comorbidity 02/19/2010 Overview: Per Obesity Protocol, #19 ICD-10 update of inactive diagnosis Dyslipidemia, goal LDL below 70 08/22/2009 Overview: Per Lipid Taxonomy. Type 2 diabetes mellitus wit h hemoglobin A1c goal of less than 7.0% 07/06/2009 Overview: Per Diabetes Taxonomy. ICD-10 update of inactive term Primary osteoarthritis of both knees Overview: Left >rt--getting IASI q 3 mths since 2014 Family hx-breast malignancy Overview: sister documented as of this encounter (statuses as of 09/18/2023) Resolved Problems Problem Noted Date Diagnosed Date Resolved Date Diabetes mellitus with stage 3 chronic kidney disease 10/19/2019 05/29/2021 Overview: Per CKD protocol Microalbuminuria 11/01/2016 03/09/2018 Osteoporosis 11/01/2016 08/25/2017 Vitamin D insufficiency 11/01/20160 10/2017 Essential hypertension 11/01/201611/21 Screen for colon cancer 07/18/20160 04/2022 Overview: Nl 12/2014 historical Encounter for screening mamm ogram for breast cancer 07/18/2016 03/15/2022 Overview: 01/22-mammo neg>01/23; historical Essential hypertension with goal blood pressure less than 140/90 02/14/2016 09/21/2019 HTN, goal below 140/90 11/13/201502/13 Overview: Per HTN Protocol #27. Atrial flutter 10/12/2012 02/14/2016 Atrial fibrillation 10/12/2012 02/14/20 16 HTN, GOAL BELOW 140/80 04/27/201212/12 Overview: Per HTN Protocol #27. Asthma, mild persistent 09/19/201109/09 HTN, GOAL BELOW 130/80 10/04/200904/30 Overview: Per HTN Taxonomy. No advance directive on file 11/06/2006 02/21/2017 Overview: No, Advance Directive brochure given to patient. HTN, goal below 140/90 11/06/200610/04 Overview: Per HTN Taxonomy. Type 2 diabetes mellitus wit h hemoglobin A1c goal of less than 7.0% 07/06/2009 Overview: Per Diabetes Taxonomy. ICD-10 update of inactive term Dyslipidemia, goal to be determined 08/22/2009 Overview: Per Lipid Taxonomy. GERD (gastroesophageal reflux disease) 03/09/2018 documented as of this encounter (statuses as of 09/18/2023) Immunizations Name Administration Dates Next Due COVID-19 mRNA, LNP-s, No Pre serve, 2-Dose Series (mVisum) 08/08/2021,12/19/2020,11/24/2020 Covid-19, Mrna, Lnp-s, Pf, B ivalent, 30 Mcg, IM, 12 yrs and above (mVisum) 07/02/2023,07/16/2022 H1N1 2009 Influenza, IM 09/06/2009 Pneumococcal Conjugate Vacc, 13 Valent (Prevnar) 11/10/2014 Pneumococcal Polysaccharide PPV23 (Pneumovax) 07/18/2016,05/07/2007 Season Influenza, Quad, PF, Adjuvanted, 65+ Yrs, IM (FLUAD) 05/17/2020 Seasonal Influenza Virus Vac cine, Unspecified Formulation 05/29/2021,05/17/2020,06/01/2019,07/08,06/24/2017,06/28/2016,06/22/2014 ,06/11/2013,07/07/2012,06/10/2011,09/2009,06/08/2009,06/08/2006, 5 Seasonal Influenza, PF, 6 M & above, IM , (FluLaval or Fluzone) 07/08/2018 Seasonal Influenza, Quadriva lent Hd (Fluzone Hd) 06/03/2023,05/29/2022,05/29/2021 Seasonal Influenza, Quadriva lent, No Preserve, IM 06/24/2017 Seasonal Influenza, Split, I IV3, With Preserve, Inj 06/28/2016,06/21/2015,06/22/2014,06/11,07/07/2012,06/10/2011,06/08/2010 ,06/08/2009,06/08/2006,06/08/2005 Seasonal Influenza, Trivalen t, Adjuvanted, 65+ yrs 06/01/2019 Seasonal Influenza, Trivalen t, High Dose, No Preserve, IM 07/08/2018 TD - Tetanus/Diptheria (ADULT) 08/19/2005 TDAP (age 10 and older)(Boostrix) 10/12/2012 TDAP (age 11 and older)(Adacel) 10/12/2012 Varicella Zoster Vaccine (Adult) 04/10/2012 Zoster Vaccine Recombinant (Shingrix) 10/25/2018 ,08/22/2018 documented as of this encounter Social History Tobacco Use Types Packs/Day Years Used Date Smoking Tobacco: Never Passive Smoke Exposure: Yes Smokeless Tobacco: Never Comments:lived with second h and smoke, last exposure 8 years ago Alcohol Use Standard Drinks/Week Comments No 0 (1 standard drink = 0.6 oz pur e alcohol) PHQ-2 Answer Date Recorded PHQ Adult Total Score 0 06/03/2023 Hunger Vital Sign Answer Date Recorded Worried About Running Out of Food in the Last Ye ar Never true 03/18/2019 Ran Out of Food in the Last Year Never true 03/18/2019 Sex and Gender Information Value Date Recorded Sex Assigned at Female 03/18/2019 11:38 AM EDT Gender Identity Female 03/18/2019 11:38 AM EDT Sexual Orientation Straight 03/18/2019 11 :38 AM EDT Job Start Date Occupation Industry Not on file Not on file Not on file documented as of this encounter Progress Notes * Ang Gardner [facility] - 09/18/2023 11:02 AM EST Medication Therapy Disease Management - Anticoagulation Carol Alma Krishna 1945 Patient Findings Positives: Upcoming invasive procedure (TKA on 09/[address] De. 5 day hold) Negatives: Signs/symptoms of thrombosis, Signs/symptoms of bleeding, Change in health, Change in alcohol use, Change in activity, Missed doses, Extra doses, Change in medications, Change in diet/appetite, Bruising INR Result As of 09/18/2023 INR goal: 2.0-3.0 INR used for dosin.5 (09/18/2023) Warfarin Plan As of 09/18/2023 Full warfarin instructions: 09/21: Hold; 09/22: Hold; 09/23: Hold; 09/24: Hold; 09/25: Hold; 09/26: 10 mg; 09/27: 5 mg; 09/28: 5 mg; Otherwise 5 mg every Mon, Wed, Fri; 2.5 mg all other days Next INR check: 10/15/2023 Repeat PT/INR in 3 week(s) Weekly dose: not changed Ang Dunn RPh, CACP, CDE Clinical Pharmacist Medication Therapy Management [facility] 09/18/2023 11:11 AM documented in this encounter Plan of Treatment Upcoming Encounters Date Type Department Care Team (Late st Contact Info) Description 10/15/2023 10:20 AM EST Anticoagulation Pharmacy, [facility] [place] [address] [place] [address] Pharmacist1, [facility] [address] [place] [address] [address] 12/02/2023 11:20 AM EDT Office Visit General Internal Medicine [facility] [place] [address] [place] [address] Megan Mak MD [address] [place] [place] [address] 12/15/2023 11:20 AM EDT Office Visit Sleep Disorders Ctr Joshua Rojas [place] [address] [facility] [place] [phone] Lemus Cintia Andino, DO [address] [place] [address] 02/24/2024 10:00 AM EDT Imaging Radiology [facility] [facility] [address] [place] [address] 02/27/2024 10:30 AM EDT Office Visit Cardiology, [facility] [address] [place] [address] Caitlin Gomez PA-C [address] [place] [address] 08/16/2024 10:20 AM EST Office Visit Dermatology [facility] [place] [address] [place] [address] Rachelle Lanier PA-C [address] [place] [address] Scheduled Procedures Name Priority Associated Diagnoses Date/Ti me COLONOSCOPY FLEXIBLE PROXIMA L DIAGNOSTIC Recall Special screening for malignant neoplasms, colon Health Maintenance Due Date Last Done Comments Hepatitis C Screening 01/14/1963 Hepatitis B (1 of 3 - Risk 3-dose series) 2004 DTaP,Tdap,and Td Vaccines (3 - Td or Tdap) 10/12/2022 10/12/2012, 10/12/2012, 08/19/2005 B-12 05/27/2023 05/27/2022, 03/0 09/2020, 10/06/2019, Additional history exists COVID-19 Vaccine ( season) 2023 07/02/2023, 07/16/2022, 08/08/2021, Additional history exists Albumin/Creatinine Ratio 11/22/2023 023, 05/29/2022, 06/13/2021, Additional history exists HbA1c 11/28/2023 05/30/2023, 01/07, 11/21/2022, Additional history exists GFR 05/30/2024 05/30/2023, 02/07, 01/30/2023, Additional history exists Depression Screening 06/03/2024 06/03/2023 Diabetic Foot Exam 06/03/2024 06/03/2023, 0 11/26/2021, 01/17/2021, Additional history exists Diabetic Eye Exam 06/30/2024 06/30/2023, , 12/24/2021, Additional history exists DXA Scan 11/05/2024 11/05/2022, 06/08, 03/13/2020, Additional history exists Pneumococcal Vaccine: 65+ Years Completed 07/18/2016, 11/10/2014, 05/07/2007 Zoster Vaccines Completed 10/25/2018, 08/08, 04/10/2012 VITAMIN D LEVEL ONCE IN A LIFETIME-USE SMARTSET# [id number] Completed 05/22/2021, 11/06/2020, 03/21/2020, Additional history exists Influenza Vaccine (FLU shot) Completed , 05/29/2022, 05/29/2021, Additional history exists GARDASIL-HPV IMMUNIZATION SERIES Aged Out No longer eligible based on patient's age to complete this topic MENINGOCOCCAL (MENACTRA/MENVEO) Aged Out No longer eligible based on patient's age to complete this topic documented as of this encounter Medical Devices Implanted Type Area Column Precaster Device Identifier Shelf Expiration Date Model / Serial / Lot Lens Intraoc 19.5 - [id number] - [id number] Implanted:Qty: 1 on 06/22/2020 by Jordon Dietrich MD at OR [facility] Left: Eye [employer] 11/05/2024 [id number] / [id number] / [id number] Lens Intraoc 19.5 - [id number] - [id number] Implanted:Qty: 1 on 07/03/2020 by Jordon Dietrich MD at OR [facility] Right: Eye [employer] 10/08/2024 [id number] / [id number] / [id number] documented as of this encounter Procedures Procedure Name Priority Date/Time Associated Diagnosis Comments INR FINGERSTICK, POINT OF CARE STAT 09/18/2023 11:04 AM EST Chronic atrial fibrillation (HCC) Anticoagulation management encounter doctor of naprapathy current use of anticoagulant therapy documented in this encounter Results * INR FINGERSTICK, POINT OF CARE (09/18/2023 11:04 AM EST) Fingerstick INR 2.5 INR 11:26 AM EST [facility] Blood 09/18/2023 11:0 4 AM EST 09/18/2023 11:26 AM EST Narrative [facility] 56-02 - 09/18/2023 11:26 AM EST Therapeutic ranges for non-operative patients: Prophylaxsis/treatment of DVT: (Range:2.0-3.0) Treatment of pulmonary embolism:(Range:2.0-3.0) Prevention of systemic embolism from: -tissue heart valves -acute myocardial infarction -valvular heart disease -atrial fibrillation (Range: 2.0-3.0) Mechanical prosthetic valves: (Range: 2.5-3.5) Ang Shaun V, [facility] POINT OF CARE TE ST DOCKED DEVICE UNSOLICITED RESULTS [facility] [address] [facility] [address] documented in this encounter Visit Diagnoses Diagnosis Chronic atrial fibrillation (HCC)- Primary Atrial fibrillation Anticoagulation management encounter Encounter for therapeutic drug monitoring doctor of naprapathy current use of anticoagulant therapy documented in this encounter Care Teams Technical Proposal Writer Relationship Specialty Start Date End Date Megan Mak [facility] [address] [facility] [address] PCP - General Internal Medicine 06/20/16 documented as of this encounter
--- OUTSIDE RECORDS SUMMARY | 2023-09-26 10:26 | External Medical Summary | Summary of Care ---
Author Name Unknown Organization [facility] Address [address] [facility] [place] [address] Phone [phone] Care Team Providers Care Application Support Analyst Name Role Phone Beverly Mak MD Primary Care Provider [phone] Reason for Visit * Reason Onset Date Comments Medication Refill 09/24/2023 Encounter Details Date Type Department Care Team (Late st Contact Info) Description 09/24/2023 Refill General Internal Medicine [facility] [address] [facility] [place] [address] Beverly Mak MD [address] [place] [address] S/P laparoscopic cholecystectomy; Loose stools Allergies Active Allergy Reactions Criticality Noted Date Comments Acetaminophen Medium 12/11/2018 Other reaction(s): YEAST INFECTIONS Doxycycline Calcium Rash Low 06/20/2010 Rash Lisinopril 04/03/2021 Rash documented as of this encounter (statuses as of 09/25/2023) Medications Medication Sig Dispensed Refills Start Date End Date Status FLUTICASONE PROPIONATE 50 MCG/ACT NA SUSPIndications:Jovanny rgic rhinitis due to other allergen 1-2 sprays each side twice a day 1 Bottle 6 12/05/2011 Active CPAP every night at bedtime . 0 Active Loratadine 10 MG Oral Tablet (Claritin)Indication s:Non-seasonal allergic rhinitis, unspecified trigger,Dermatitis Take by mouth 1 Tablet in the morning AND 1 Tablet before bedtime. Allergies/skin itch/rash. 30 Tablet 5 05/29/2022 Active OneTouch Verio w/Device KitIndications:Type 2 diabetes mellitus with hemoglobin A1c goal of less than 7.0% ([facility]),Controlled type 2 diabetes mellitus with microalbuminuria, without long-term current use of insulin ([facility]) Use to check sugars once a day Dx E 11.9 1 Kit 0 11/26/2022 Active OneTouch Verio In Vitro Strip (Glucose Blood)Indications:Ty pe 2 diabetes mellitus with hemoglobin A1c goal of less than 7.0% ([facility]),Controlled type 2 diabetes mellitus with microalbuminuria, without long-term current use of insulin ([facility]) Use to check sugars once a day Dx E 11.9 100 Strip 3 11/26/2022 Active SoloLearnTouch UltraSoft LancetsIndications:T ype 2 diabetes mellitus with hemoglobin A1c goal of less than 7.0% ([facility]),Controlled type 2 diabetes mellitus with microalbuminuria, without long-term current use of insulin ([facility]) Use to check sugars once a day Dx E 11.9 100 Each 3 11/26/2022 Active Warfarin Sodium 5 MG Oral Tablet (Coumadin)Indication s:Persistent atrial fibrillation (HCC),Warfarin anticoagulation TAKE ONE TABLET [...] Active Atorvastatin Calcium 20 MG Oral Tablet (Lipitor)Indications :Dyslipidemia, goal LDL below 100 TAKE ONE TABLET BY MOUTH EVERY DAY 90 Tablet 3 09/16/2022 4 Active Atenolol 50 MG Oral Tablet (Tenormin) TAKE TWO AND ONE-HALF TABLETS BY MOUTH EVERY DAY 225 Tablet 3 09/16/2022 4 Active amLODIPine Besylate 5 MG Oral Tablet (Norvasc)Indications :Type 2 diabetes mellitus with hemoglobin A1c goal of less than 7.0% ([facility]),HTN, goal below 140/80,Toe cyanosis,Bilateral cold feet Take 1 Tablet by mouth at bedtime. inc dose to 5mg in fall/winter --inc 06/03/2023 90 Tablet 1 06/03/2023 Active metFORMIN HCl ER 500 MG Oral Tablet Extended Release 24 Hour (Glucophage XR)Indications:Type 2 diabetes mellitus with hemoglobin A1c goal of less than 7.0% ([facility]) Take 2 Tablets by mouth daily with dinner. 180 Tablet 3 06/03/2023 Active Losartan Potassium 50 MG Oral Tablet (Cozaar)Indications: Type 2 diabetes mellitus with hemoglobin A1c goal of less than 7.0% ([facility]),Controlled type 2 diabetes mellitus with microalbuminuria, without long-term current use of insulin ([facility]),HTN, goal below 140/80,Diastolic dysfunction Take 1 Tablet by mouth in the morning and 1 Tablet before bedtime. 180 Tablet 3 06/03/2023 Active hydroCHLOROthiazide 12.5 MG Oral Tablet (Hydrodiuril)Indicat ions:Diastolic dysfunction,Edema of both lower legs due to peripheral venous insufficiency Take 1 Tablet by mouth in the morning. 90 Tablet 3 07/10/2023 Active Azithromycin 250 MG Oral Tablet (Zithromax Z-Jerry)Indications:Ac faheem wheezy bronchitis Take two tablets by mouth on first day, then 1 tablet daily until gone-start if not better on prednisone 6 Tablet 0 07/23/2023 Active Albuterol Sulfate HFA 108 (90 Base) MCG/ACT Inhalation Aerosol SolutionIndications: Viral URI with cough,Acute wheezy bronchitis Inhale 2 Puffs by mouth every 4 hours as needed for Wheezing. 18 g 0 07/23/2023 Active predniSONE 10 MG Oral Tablet (Deltasone)Indicatio ns:Viral URI with cough,Laryngitis,Acu te serous otitis media, recurrence not specified, unspecified laterality Take 5 tabs for 2 days, 4 tabs for 2 days, 3 tabs for 2 days, 2 tabs for 2 days 1 tab for 2 days 30 Tablet 0 07/23/2023 Active Cholestyramine Light 4 GM/DOSE Oral Powder (Questran Light)Indications:S/ P laparoscopic cholecystectomy,Loos e stools mix ONE SCOOP IN 6 OZ OF LIQUID EVERY DAY NEEDED FOR DIARRHEA 231 g 3 09/25/2023 Active Cholestyramine Light 4 GM/DOSE Oral Powder (Questran Light)Indications:S/ P laparoscopic cholecystectomy,Loos e stools mix ONE SCOOP IN 6 OZ OF LIQUID EVERY DAY NEEDED FOR DIARRHEA 231 g 0 07/11/2023 4 Discontinu ed(Refill) documented as of this encounter (statuses as of 09/25/2023) Active Problems Problem Noted Date Diagnosed Date [...] CPAP 05/29/2021 Controlled type 2 diabetes m ellitus with microalbuminuria, without long-term current use of [...] as of this encounter (statuses as of 09/25/2023) Resolved Problems Problem Noted Date Diagnosed Date [...] as of this encounter (statuses as of 09/25/2023) Immunizations Name Administration Dates Next Due COVID-19 mRNA, LNP-s, No Pre serve, 2-Dose Series ([employer]) 08/08/2021,12/19/2020,11/24/2020 Covid-19, Mrna, Lnp-s, Pf, B ivalent, 30 Mcg, IM, 12 yrs and above ([employer]) 07/02/2023,07/16/2022 H1N1 2009 Influenza, IM 09/06/2009 Pneumococcal [...] on file documented as of this encounter Miscellaneous Notes * Telephone Encounter - Beverly Mak MD - 09/25/2023 5:38 PM ESTSigned Prescriptions: Disp Refills Cholestyramine Light 4 GM/DOSE Oral Powder*231 g 3 Sig: mix ONE SCOOP IN 6 OZ OF LIQUID EVERY DAY NEEDED FOR DIARRHEA Authorizing Provider: BEVERLY MAK * Telephone Encounter - Xiomara Ribeiro RPh - 09/25/2023 2:24 PM ESTPending Prescriptions: Disp Refills Cholestyramine Light 4 GM/DOSE Oral Powder*231 g 0 Sig: mix ONE SCOOP IN 6 OZ OF LIQUID EVERY DAY NEEDED FOR DIARRHEA * Telephone Encounter - Xiomara Ribeiro RPh - 09/25/2023 2:23 PM EST [facility] is currently not authorized to approve refills for the pended medication(s) per refill protocol. Please approve if appropriate. Thanks, Xiomara Ribeiro, PharmD Clinical Pharmacist Centralized Clinical Pharmacy Services ([facility]) (formerly [facility]) [phone] 09/25/2023 2:23 PM * Telephone Encounter - Tamara Dubois CPhT - 09/24/2023 11:10 AM EST Did you pend patient's preferred pharmacy and medication before forwarding?yes Pharmacy: [facility] Pending Prescriptions: Disp Refills Cholestyramine Light 4 GM/DOSE Oral Powde*231 g 0 Sig: mix ONE SCOOP IN 6 OZ OF LIQUID EVERY DAY NEEDED FOR DIARRHEA Last Visit: 07/23/2023 (in office), 04/24/2020 (telemedicine) Next Visit: 12/02/2023 If no future appointments scheduled, and last appointment is greater than a year ago, please schedule patient for a follow-up appointment Last date the medication was ordered: 07/11/2023 Is this request for a controlled substance?No Urine Drug Screen:No results found. However, due to the size of the patient record, not all encounters were searched. Please check Results Review for a complete set of results. Patient Phone Numbers Biba [phone] Labs: Lab Results Component Value Date/Time CREAT 1.0 05/30/2023 09:16 AM CREAT 0.8 07/05/2020 12:30 PM POTASSIUM 4.0 05/30/2023 09:16 AM POTASSIUM 4.2 04/28/2020 10:09 AM TSH 0.85 03/21/2020 12:46 PM LDLCALC 50 11/21/2022 01:05 PM LDLCALC 54 10/06/2019 09:03 AM LDLDIRECT 73 05/30/2023 09:16 AM LDLDIRECT 51 04/28/2020 10:09 AM ALT 26 05/30/2023 09:16 AM ALT 19 04/28/2020 10:09 AM HGBA1C 6.6 (H) 05/30/2023 09:16 AM HGBA1C 6.2 (H) 04/28/2020 10:09 AM documented in this encounter Plan of Treatment Upcoming Encounters Date Type Department Care Team (Late st Contact Info) Description 10/15/2023 10:20 AM EST Anticoagulation Pharmacy, [facility] [place] [address] [facility] [place] [address] Pharmacist1, [facility] [address] [facility] [place] [address] 12/02/2023 11:20 AM EDT Office Visit General Internal Medicine [facility] [place] [address] [place] [address] Beverly Mak MD [address] [facility] [place] [address] 12/15/2023 11:20 AM EDT Office Visit Sleep Disorders [facility] [address] [place] [id number] Cintia Lemus DO [address] [facility] [place] [address] 02/24/2024 10:00 AM EDT Imaging Radiology [facility] [address] [facility] [address] [place] [address] 02/27/2024 10:30 AM EDT Office Visit Cardiology, [facility] [address] [facility] [place] [address] Caitlin Gomez, JULIO CESAR [address] [place] [address] 08/16/2024 10:20 AM EST Office Visit Dermatology [facility], [place] [address] [place] [address] Rachelle Lanier PA-C [address] [place] [address] Scheduled Procedures Name Priority Associated Diagnoses Date/Ti [...] D LEVEL ONCE IN A LIFETIME-USE SMARTSET# [id number] Completed 05/22/2021, 11/06/2020, 03/21/2020, Additional history exists Influenza Vaccine (FLU shot) Completed , 05/29/2022, 05/29/2021, Additional history exists GARDASIL-HPV IMMUNIZATION SERIES Aged Out No longer eligible based on patient's age to complete this topic MENINGOCOCCAL (MENACTRA/MENVEO) Aged Out No longer eligible based on patient's age to complete this topic documented as of this encounter Medical Devices Implanted Type Area Rotary Soil Stabilizer Operator Device Identifier Shelf Expiration Date Model / Serial / Lot Lens Intraoc 19.5 - [id number] - [id number] Implanted:Qty: 1 on 06/22/2020 by Jordon Dietrich MD at OR [facility] Left: Eye [employer] 11/05/2024 [id number] / [id number] / [id number] Lens Intraoc 19.5 - [id number] - [id number] Implanted:Qty: 1 on 07/03/2020 by Jordon Dietrich MD at OR [facility] Right: Eye [employer] 10/08/2024 [id number] / [id number] / [id number] documented as of this encounter Visit Diagnoses Diagnosis S/P laparoscopic cholecystectomy Other postprocedural status Loose stools Abnormal feces documented in this encounter Care Teams Application Support Analyst Relationship Specialty Start Date End Date Beverly Mak MD [address] [place] [address] PCP - General Internal Medicine 06/20/16 documented as of this encounter
[2023-09-26 10:32] LABS: INR 1.2 (0.9-1.1); Partial Thromboplastin Ratio 0.9; Partial Thromboplastin Time 26 Seconds (21-31); Prothrombin Time 13.2 Seconds (9.0-12.0)
[2023-09-26] MEDS ORDERED: ORTHO JOINT ANESTHETIC ONE (11:15)
--- NOTE | 2023-09-26 13:24 | Operative Report ---
PG Post Operative Report Pre & Post Diagnosis Operation Date: 09/26/23 10:40 Pre-Op Diagnosis: Left Knee Degenerative Joint Disease Post-Op Diagnosis: Left Knee Degenerative Joint Disease I identified the patient and participated in the time-out.: Yes Procedure Operation Date: 09/26/23 10:40 Actual Procedures p Left Total Knee Arthroplasty(Left) - Casey De MD Surgeon Casey De MD Payroll Associate Riky Contreras PA-C Estimated Blood Loss 50 Findings Consistent with Post-Op Diagnosis Operative findings reveal advanced left knee tricompartment DJD. She had extensive grade 4 [id number] disease in all 3 compartments most severe on the medial side. She had a flexion contracture about 15 degrees. Diffuse osteopenia. Moderate to large knee joint effusion. Osteophytes in all 3 compartments. Specimens Left knee sent for pathology. Anesthesia Type Spinal MAC Complications none Disposition Accompanied Patient To Recovery: No Indications Patient is a 78-year-old female said a long history of bilateral knee pain discomfort that is gradually gotten worse over time. She been through extensive conservative treatment which became less successful. X-rays reveal advanced bilateral knee DJD. She elected proceed with left total knee arthroplasty. Description of Procedure Operative implants consisted of: 1 Biomet Vanguard size 67.5 left Po stabilized femoral component. 2. Biomet size 67 tibial tray. 3. 10 mm posterior stabilized polyethylene insert. 4. 31 x 8 all poly patella. The patient was taken the operating, identified, placed on the operating table in the supine position. Contractors were properly padded. IV antibiotics tried by anesthesia team. A spinal anesthetic and adductor canal block had provided holding area. Shelton catheter was placed in sterile fashion. Left thigh turn was then placed. Left lower extremities then prepped and draped in usual sterile fashion. The left leg was elevated and exsanguinated with use of an Esmarch and the tourniquet was placed at 300 mmHg. An anterior approach the left knee was then performed to longitudinal incision centered over the patella. Sharp dissection was carried through subcutaneous tissue down over the extensor mechanism. A medial parapatellar arthrotomy incision was made. Some subperiosteal dissection was carried out medially. The fat pad was resected from Neath patella tendon. The lateral patellofemoral ligament was released. Patella subluxated laterally knee was flexed. The osteophytes taken off distal femur. The ACL and PCL released on the distal femur the tibia subluxated anteriorly. The external tibial alignment jig was then placed in the interface the tibia and adjusted 14 mm medially. Proximal tibial cut was made essentially flush with the most deficient aspect the posterior medial tibial plateau. Some osteophytes taken off medial and posterior medially. The tibia sized to a size 67. Attention drawn the femur. The distal femur was then with a sharp drill. The intramedullary canal was suction. A left 5 degree valgus cutting guide was placed. The distal femoral cutting block was pinned in place. Distal femoral cut was made to take an additional 3 mm of bone off distal femur. The femur was then sized to a size 67.5. The AP cutting block was pinned parallel to the epicondylar axis which was 3 degrees of external rotation. The anterior cut, anterior chamfer, posterior cut, posterior chamfer cuts were made. The box cutting guide was placed in just slight lateral and the box cut was made. The knee was flexed. The remnants of the medial and lateral menisci were excised. The osteophytes were taken off the posterior aspect the femur. A trial femoral component was placed but the tibial tray was pinned Ana Rosa external rotation and the drill and stem punch were used to create defect in proximal tibia for the tibial tray. Knee was then trialed and the 10 mm insert fit most appropriately. Attention drawn the patella. The patella was cleaned of all soft tissues. Patella thickness measured 18 mm in thickness was cut down to 12. It was sized to a size 31 patella. The lug holes were drilled for 31 patella. The lateral osteophyte was removed. Patella button was placed. Knee was taken through range of motion patella tracked nicely with no thumbs test. Attention drawn to place the permanent components. All trial components were removed. Bone plug was placed into this femur limit blood loss. Double batch Palacos G cement was mixed. Biomet Oxynadeguard size 67.5 left Po stabilized femoral component, a size 67 tibial tray, a 10 mm post stabilized polyethylene insert, and a 31 x 8 all poly patella then cemented in place. The knee was brought out into full extension till cement hardened. Final cement check was then performed. The pericapsular tissues were injected with 100 cc of the joint mix. The tourniquet was let down for tourniquet time 56 minutes. Hemostasis assured use electrocautery. Extensor mechanism then closed with combination 1 PDS suture #1 Vicryl suture in a [id number] fashion. Extensor Meclomen checked found to be intact the subcutaneous tissues then closed with 2 Dexon suture in buried erupted fashion skin was closed skin dallas. Leg was then cleaned and dried and sterile dressing with Xeroform, 4 fours, sterile cast padding, Bolivar bandage were applied. Patient then transferred to the recovery room in stable condition. Patient tolerated procedure well no complications. Riky Contreras, my physician family services assistant, was present for the entire procedure. His assistance was essential and required for appropriate patient positioning, prepping and draping, surgical exposure, performing the technical details of the operation, placement the implants, closure of the wound, and placement of the sterile bandage. I attest to the content of the Intraoperative Record and any orders documented therein. Any exceptions are noted below.
--- NOTE | 2023-09-26 14:02 | XRay Report ---
LEFT KNEE 2 VIEWS History: Left total knee arthroplasty. Degenerative arthritis. Postop. FINDINGS: The patient is status post a left total knee arthroplasty. The hardware is intact. No fract ure or dislocation. Skin dallas are in place. IMPRESSION: Left total knee arthroplasty. No evidence for hardware complication. ACT 112: Negative or not required by law. Electronically signed by: Rishi Al M.D. 09/26/2023 2:00 PM
--- NOTE | 2023-09-26 14:34 | Anesthesiology Progress Note ---
Date of Service September 26, 2023 Anesthesia Post Procedure Vital Signs Vital Signs: Temp Pulse Pulse Resp BP Pulse Ox O2 Del Method 09/26/23 14:05 36.3 C L 78 16 106/65 92 Room Air 09/26/23 13:55 78 15 110/65 90 Room Air 09/26/23 13:45 78 18 115/69 96 Oxymask 09/26/23 13:35 77 19 108/62 100 Oxymask 09/26/23 13:25 36.4 C L 81 19 100/64 99 Oxymask 09/26/23 09:38 36.6 C 89 20 137/75 98 Room Air O2 Flow Rate 09/26/23 14:05 0 09/26/23 13:55 0 09/26/23 13:45 4 09/26/23 13:35 6 09/26/23 13:25 8 09/26/23 09:38 Transfer of Care Handoff Completed per policy Notes Mental Status: alert / awake / arousable Patient Amnestic to Procedure: Yes Nausea / Vomiting: adequately controlled Pain: adequately controlled Airway Patency, RR, SpO2: stable & adequate BP & HR: stable & adequate Hydration State: stable & adequate Neuraxial Anesthesia: was administered and sensory block is resolving Anesthetic Complications: no major complications apparent and Pt Satisfied with anesthetic care
[2023-09-26] MEDS ORDERED: ALBUTEROL HFA 8 GM INHALER INH PRN (14:35)
[2023-09-26] MEDS ORDERED: oxyCODONE HCL IR 5 MG TAB (IMMEDIATE RELEASE) PO PRN (14:35)
[2023-09-26] MEDS ORDERED: CARBOHYDRATES FOR HYPOGLYCEMIA PO PRN (14:35)
[2023-09-26] MEDS ORDERED: METOCLOPRAMIDE HCL INJ 5 MG/ML 2 ML VIAL IV PRN (14:35)
[2023-09-26] MEDS ORDERED: WARFARIN SOD 7.5 MG TAB PO ONE (14:35)
[2023-09-26] MEDS ORDERED: NALOXONE HCL 0.4 MG/1 ML VIAL/CARP IV PRN (14:35)
[2023-09-26] MEDS ORDERED: HYDROmorphone INJ 0.5 MG/0.5 ML SYR IV PRN (14:35)
[2023-09-26] MEDS ORDERED: GLUCOSE 40% GEL 15 GM TUBE PO PRN (14:35)
[2023-09-26] MEDS ORDERED: GLUCAGON FOR INJ 1 MG VIAL SQ PRN (14:35)
[2023-09-26] MEDS ORDERED: GLUCOSE 10 TAB/TUBE PO PRN (14:35)
[2023-09-26] MEDS ORDERED: PHARMACY GLYCEMIC MGMT CONSULT PRN (14:35)
[2023-09-26] MEDS ORDERED: bisacodyL 10 MG SUPP PR PRN (14:35)
[2023-09-26] MEDS ORDERED: DEXTROSE 50% 50 ML SYRINGE IV PRN (14:35)
[2023-09-26] MEDS ORDERED: ALUMINUM/MAGNESIUM SUSP 30 ML UDC PO PRN (14:35)
[2023-09-26] MEDS ORDERED: MAGNESIUM HYDROXIDE SUSP 30 ML UDC PO PRN (14:35)
--- NOTE | 2023-09-26 14:48 | Pharmacy Report ---
Pharmacy Glycemic Short Note 2 - Date of Service September 26, 2023 - Glycemic Short BSG Results (Last 24 hours): 09/26/23 09/26/23 09:28 13:27 POC Glucose 157 H 97 OUTPATIENT ANTIDIABETIC REGIMEN: * Metformin 1000 mg PO PM * HbA1c: 6.8% (09/10/23) ASSESSMENT: * 78 yo F admitted on 09/26/23 postoperatively following a left total knee arthroplasty. Pharmacy has been consulted to assist with inpatient glycemic management. Patient is a Type 2 diabetic as an outpatient. Please refer to outpatient regimen and most recent HbA1c above. * Preop BSG was 157 mg/dL. Postop BSG was 97 mg/dL. Patient did not receive any steroids perioperatively but is ordered a one time dose of Dexamethasone 10 mg IV for tomorrow morning. A T2DM diet has been ordered, will follow to ensure patient tolerates this evening. * Hold off on basal insulin for now. Will need to reassess basal needs as suspect BSGs will increase with steroid dose tomorrow. Novolog to be started based on weight/stress of 2-3. Again, may needed tightened tomorrow depending on how patient responds to steroids. PLAN FOR INPATIENT GLYCEMIC CONTROL: * Hold outpatient oral diabetes medications * Basal insulin * Holding * Bolus insulin * NovoLog per scale ACHS or Q6hrs while NPO * Goal Range: Low 110 mg/dL - High 140 mg/dL * Correction Factor: 20 mg/dL/unit * Nutritional / Prandial insulin per carb ratio of 1 unit per 7 grams CHO consumed
[2023-09-26] MEDS: SODIUM CHLORIDE 0.9% 1,000 ML IV SCH (14:49)
[2023-09-26] MEDS: KETOROLAC TROMETHAMINE 15 MG/ML VIAL IV SCH ×2 (15:51→20:40)
[2023-09-26] MEDS: ACETAMINOPHEN 500 MG TAB PO SCH ×2 (15:51→19:31)
[2023-09-26] MEDS: ASCORBIC ACID 500 MG TAB PO SCH (17:27)
[2023-09-26] MEDS: INSULIN ASPART PER UNIT CHARGE SC SCH ×2 (17:32→20:53)
[2023-09-26] MEDS ORDERED: TRANEXAMIC ACID / 0.7% NACL 1,000 MG/100 ML BAG IV SCH (18:30)
[2023-09-26] MEDS: DOCUSATE SODIUM 100 MG CAP PO SCH (19:31)
[2023-09-26] MEDS: ceFAZolin 2000MG 2,000 MG/15 ML SYR IV SCH (19:33)
[2023-09-26] MEDS: LOSARTAN POTASSIUM 50 MG TAB PO SCH (20:40)
[2023-09-26] MEDS ORDERED: ATORVASTATIN 20 MG TAB PO SCH (21:00)
[2023-09-26] MEDS ORDERED: amLODIPine BESYLATE 5 MG TAB PO SCH (21:00)
[2023-09-26] MEDS ORDERED: SENNA 8.6 MG TAB PO SCH ×2 (21:00)
[2023-09-26] MEDS ORDERED: LORATADINE 10 MG TAB PO SCH (21:00)
[2023-09-27] MEDS: SODIUM CHLORIDE 0.9% 1,000 ML IV SCH (01:47)
[2023-09-27] MEDS: KETOROLAC TROMETHAMINE 15 MG/ML VIAL IV SCH ×2 (03:10→08:20)
[2023-09-27] MEDS: ceFAZolin 2000MG 2,000 MG/15 ML SYR IV SCH (03:10)
--- NOTE | 2023-09-27 06:15 | Electrocardiogram Report ---
Test Reason : Blood Pressure : / mmHG Vent. Rate : 081 BPM Atrial Rate : 119 BPM P-R Int : 000 ms QRS Dur : 092 ms QT Int : 382 ms P-R-T Axes : 000 015 -68 degrees QTc Int : 443 ms Atrial fibrillation Low voltage QRS Abnormal ECG When compared with ECG of 10-SEP-2023 14:24, No significant change was found Confirmed by Von Ceballos ([id number]) on 09/27/2023 6:15:34 AM Referred By: Casey De Confirmed By:Von Ceballos
[2023-09-27 07:13] LABS: Hematocrit (blood only) 31.6 % (37.0-47.0); Hemoglobin 10.5 g/dl (12.0-16.0); Mean Corpuscular Hemoglobin 29.9 pg (25.0-34.0); Mean Corpuscular Hgb Conc 33.2 g/dL (32.0-36.0); Mean Platelet Volume 12.2 fL (9.4-12.4); Platelet Count 202 K/uL (130-400); RDW Standard Deviation 46.3 fL (36.4-46.3); Red Blood Count 3.51 M/uL (4.20-5.40); White Blood Count 12.84 K/ul (4.8-10.8)
[2023-09-27 07:28] LABS: BUN Creatinine Ratio 27.4 (10-20); Calcium 8.6 mg/dl (8.6-10.3); Creatinine Clr Calc Pharmacy 49.3 ml/min; Est GFR (African American) 53.5 ml/min; Est GFR (Non-African American) 46.2 ml/min; Potassium 4.1 mmol/L (3.5-5.1)
[2023-09-27 07:43] LABS: INR 1.2 (0.9-1.1); Prothrombin Time 13.5 Seconds (9.0-12.0)
[2023-09-27] MEDS ORDERED: dexAMETHasone 10 MG in SYRINGE 0 ML IV SCH (08:00)
[2023-09-27] MEDS ORDERED: LANTUS PER UNIT CHARGE SC ONE (08:00)
[2023-09-27] MEDS: ACETAMINOPHEN 500 MG TAB PO SCH (08:10)
[2023-09-27] MEDS: DOCUSATE SODIUM 100 MG CAP PO SCH (08:10)
[2023-09-27] MEDS: LOSARTAN POTASSIUM 50 MG TAB PO SCH (08:21)
[2023-09-27] MEDS: ASCORBIC ACID 500 MG TAB PO SCH (08:21)
--- NOTE | 2023-09-27 08:21 | Surgery Progress Note ---
Date of Service September 27, 2023 Assessment & Plan (1) Status post left knee replacement: Plan: 78-year-old female postop day 1 from a left knee replacement doing quite well. Pain is very well-controlled. She is neurologically intact. Plan: 1. DVT prophylaxis including thigh-high teds, SCDs, back on her Coumadin dose. She got 7/2 mg last night and will give her 5 mg today. 2. PT OT. Weight-bear as tolerated. Left total knee protocol. 3. Pain control doing well with current pain regimen. 4. Disposition plan to discharge home with some home health later today if she does okay in therapy. Admission and Anticipated Discharge Date Admission Date: September 26, 2023 Subjective 78-year-old female postop day 1 from left knee replacement doing well. She has been pleasantly surprised that she is had very little pain. No chest pain or shortness of breath. Fairly minimal knee pain. She has been up and walk around doing quite well. Physical Exam Physical Exam: Physical examination was a pleasant elderly female. She sitting up in bedside chair looks comfortable. Examination left leg reveals dressing clean dry and intact. She can dorsiflex and plantarflex her foot appropriately. She is neurologically intact. She can do a good straight leg raise. Respiratory: normal respiratory effort, lungs clear to auscultation Cardiovascular: RRR, no murmur, no edema Gastrointestinal (Abdomen): normal bowel sounds, soft, nontender, no hepatosplenomegaly Results & Data Vital Signs (Past 12 Hours) Vital Signs Temp Pulse Resp BP Pulse Ox O2 Del Method O2 Flow Rate 09/27/23 07:41 36.5 C 76 17 120/72 93 Room Air 09/27/23 03:23 36.5 C 78 18 115/70 97 Nasal Cannula, CPAP 2.5 09/26/23 22:56 36.6 C 76 18 116/66 95 CPAP Laboratory Results Hemoglobin is 10.5. Hematocrit 31.6. Electrolytes are stable. INR is 1.2 PG Care Time/CCT Total # of Minutes Spent Total Time Spent with Patient: Total time spent is greater than 50% in coordination of care (as documented) at patient's floor/unit and/or counseling patient: Coding Level of Care Code None Diagnoses Status post left knee replacement Z96.652
[2023-09-27] MEDS: INSULIN ASPART PER UNIT CHARGE SC SCH (08:29)
[2023-09-27] MEDS ORDERED: CALCITRIOL 0.25 MCG CAPSULE PO SCH (09:00)
[2023-09-27] MEDS ORDERED: WARFARIN SOD 5 MG TAB PO ONE (09:00)
[2023-09-27] MEDS ORDERED: hydroCHLOROthiazide 25 MG TAB PO SCH (09:00)
[2023-09-27] MEDS ORDERED: ATENOLOL 25 MG TABLET PO SCH (09:00)
[2023-09-27] MEDS ORDERED: MULTIVITAMIN TAB PO SCH (09:00)
[2023-09-27] MEDS ORDERED: CHOLESTYRAMINE LIGHT 4 GM PKT PO SCH (10:00)
--- NOTE | 2023-10-01 06:33 | Discharge Summary ---
Date of Service October 01, 2023 Discharge Data Procedures Performed Operation Date: 09/26/23 10:40 Actual Procedures p Left Total Knee Arthroplasty(Left) - Casey De MD Hospital Course (1) Status post left knee replacement: This is a 78 year old patient admitted on 09/26/23 and underwent total knee arthroplasty. She tolerated the procedure well and there were no complications. Transferred to the PACU post op and later to the orthopedic floor for further care. She was given ancef for antibiotic prophylaxis. She was also given TEETEE stockings, SCDs, and coumadin for DVT prophylaxis. Hemoglobin, hematocrit, and vital signs were monitored during her hospital stay and remained stable. Did not require any blood transfusions. There were no complications during her hospital stay. By post op day #1 the patient was tolerating a diabetic diet, pain was reasonably controlled with oral pain medicine, and she was participating in physical therapy. On post op day #1 the patient was discharged home and set up with home health care. She was given printed discharge instructions including prescriptions for extra strength tylenol, zofran, cefadroxil, oxycodone, and senokot. Continue coumadin. Continue physical therapy, weight bearing as tolerated. Continue TEETEE stockings. Follow up approximately 2 weeks post op or sooner if there are problems or concerns. Coding Level of Care Code None Diagnoses Status post left knee replacement Z96.652
== END 2023-09-27 11:24 | disposition home health service (06) ==
LOC: 3N 09:06 → ASU 09:06
DX: Z79.01 Long term (current) use of anticoagulants; Z88.6 Allergy status to analgesic agent; Z96.641 Presence of right artificial hip joint; E11.9 Type 2 diabetes mellitus without complications; M17.12 Unilateral primary osteoarthritis, left knee; Z88.8 Allergy status to other drugs, medicaments and biological substances; I48.91 Unspecified atrial fibrillation; Z99.89 Dependence on other enabling machines and devices; E66.9 Obesity, unspecified; Z79.899 Other long term (current) drug therapy; Z87.891 Personal history of nicotine dependence; Z79.84 Long term (current) use of oral hypoglycemic drugs; Z88.1 Allergy status to other antibiotic agents; Z79.4 Long term (current) use of insulin; G47.33 Obstructive sleep apnea (adult) (pediatric); Z68.37 Body mass index [BMI] 37.0-37.9, adult